=== PATIENT | female | born 1990 | race Caucasian/White ===

== ENCOUNTER 2018-08-02 15:45 | Inpatient (IN) | payer OTHER ==
[2018-08-02 18:26] VITALS: BMI 36.2
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
[2018-08-02] MEDS ORDERED: ALBUTEROL SO4 8 GM HFA INHALER IH PRN (20:31)
[2018-08-02] MEDS ORDERED: MAGNESIUM HYDROX 2400MG/30ML ORAL SUSPENSION 30 ML CUP PO PRN (20:34)
[2018-08-02] MEDS ORDERED: NICOTINE POLACRILEX 2 MG GUM BC PRN (20:34)
[2018-08-02] MEDS ORDERED: MENTHOL/PHENOL 1 EACH UD MM PRN (20:34)
[2018-08-02] MEDS ORDERED: IBUPROFEN 400 MG TABLET (FP) PO PRN (20:34)
[2018-08-02] MEDS ORDERED: guaiFENesin/D-METHORPHAN HB 10 ML UNIT-DOSE CUPS PO PRN (20:34)
[2018-08-02] MEDS ORDERED: MAGNESIUM CITRATE 300 ML BOTTLE PO PRN (20:34)
[2018-08-02] MEDS ORDERED: MAG HYDROX/AL HYDROX/SIMETH 30 ML UNIT-DOSE CUP PO PRN (20:34)
[2018-08-02] MEDS ORDERED: P-EPHED 60MG/TRIPROLIDI 2.5MG TABLET PO PRN (20:34)
[2018-08-02] MEDS ORDERED: LOPERAMIDE HCL 2 MG CAPSULE PO PRN (20:34)
[2018-08-02] MEDS ORDERED: ACETAMINOPHEN 325 MG TABLET (FP) PO PRN (20:34)
[2018-08-02] MEDS ORDERED: cloNIDine HCL 0.1 MG TABLET PO ONE (20:45)
[2018-08-02] MEDS ORDERED: diazePAM 5 MG TABLET PO ONE (20:45)
[2018-08-02] MEDS: THIAMINE HCL 100 MG TABLET (FP) PO SCH (22:14)
[2018-08-02] MEDS: diazePAM 5 MG TABLET PO SCH (22:57)
[2018-08-02 23:51] LABS: URINE APPEARANCE TURBID; URINE BILIRUBIN NEGATIVE (<2.0 mg/dL); URINE COLOR AMBER; URINE GLUCOSE (UA) NEGATIVE (NEGATIVE); URINE KETONE NEGATIVE (NEGATIVE); URINE NITRITE NEGATIVE (NEGATIVE); URINE PROTEIN NEGATIVE (NEGATIVE); URINE UROBILINOGEN NEGATIVE mg/dL (0.2-1.0)
[2018-08-02 23:54] LABS: URINE LEUK ESTERASE 3+ (NEGATIVE)
[2018-08-03] LABS: EPI CELLS MODERATE /HPF (FEW)
[2018-08-03] MEDS: diazePAM 5 MG TABLET PO SCH ×3 (05:27→22:06)
[2018-08-03] MEDS ORDERED: METHADONE HCL 10 MG TABLET PO ONE (08:59)
[2018-08-03] MEDS ORDERED: METHADONE 80 MG, METHADONE 10 MG PO ONE (09:15)
--- NOTE | 2018-08-03 09:37 | CONSULT ---
[facility] Psychiatric Consult - Data Date of interview: 08/03/18 Admission source: [facility] Identifying data: Patient is a 28 year old female, mother of one, unemployed, and currently homeless. This is one of multiple admissions for patient. Pt. admitted to for alcohol, cocaine, opiate, and benzodiazepines. Substance Abuse History: - Smoking Cessation. Smoking history: Current every day smoker. Have you smoked in the past 12 months: Yes. Aproximately how many cigarettes per day: 20. Cigars Per Day: 0. Hx Chewing Tobacco Use: No. Initiated information on smoking cessation: Yes. 'Breaking Loose' booklet given : 08/02/18. - Substance & Tx. History. Hx Alcohol Use: Yes. Hx Substance Use : Yes. Substance Use Type: Alcohol, Heroin, Tranquilizers. [facility] - Substances Abused. Alcohol. Route: Oral. Frequency: Daily. Amount used: liquor- 1 pint, beer- 1 six pack. Age of first use: 16. Date of Last Use: 08/02/18. Alprazolam (Xanax). Route: Oral. Frequency: Daily. Amount used: 8mg. Age of first use: 17. Date of Last Use: 08/02/18 Medical History: Asthma, hypertension, seizures (drug use 2017) Psychiatric History: Patient reports approximately five psychatric hospitalization, most recently last year at [facility] for depression and anxiety. She was at the [facility] last week but was discharge and recommended to attend detox. Most recent outpatient psychiatric services was provided 1.[address] [facility]) clinic. She reports taking prozac and celexa in the past. Pt. was prescribed prozac 40mg while in rehab at [facility] in 2014. Pt. reports one suicide attempt in 2006 via cutting of her wrist. Pt. currently denies suicidal and homicidal ideation. Mental Status Exam - Mental Status Exam Alert and Oriented to: Time, Place, Person Cognitive Function: Good Patient Appearance: Well Groomed Mood: Euthymic Affect: Appropriate Patient Behavior: Appropriate, Cooperative Speech Pattern: Clear, Appropriate Voice Loudness: Normal Thought Process: Intact, Goal Oriented Thought Disorder: Not Present Hallucinations: Denies Suicidal Ideation: Denies Homicidal Ideation: Denies Insight/Judgement: Poor Sleep: Fair Appetite: Fair Muscle strength/Tone: Normal Gait/Station: Normal Psychiatric Findings - Problem List ([place] 1, 2,3) (1) Sedative, hypnotic or anxiolytic dependence with withdrawal, uncomplicated Current Visit: Yes Status: Acute (2) Cocaine dependence Current Visit: Yes Status: Chronic Qualifiers: Substance use status: uncomplicated Qualified Code(s): F14.20 - Cocaine dependence, uncomplicated (3) Opioid dependence Current Visit: Yes Status: Chronic Qualifiers: Substance use status: uncomplicated Qualified Code(s): F11.20 - Opioid dependence, uncomplicated (4) Substance induced mood disorder Current Visit: Yes Status: Acute - Initial Treatment Plan Initial Treatment Plan: Psychoeducation provided. Detoxification in progress. Will order prozac 20mg daily. Benefits and side effects discussed. Verbal consent given.
[2018-08-03] MEDS ORDERED: METHADONE HCL 10 MG TABLET ONE (10:05)
[2018-08-03] MEDS ORDERED: METHADONE HCL 40 MG DISPERSABLE TABLET ONE (10:05)
[2018-08-03] MEDS: cloNIDine HCL 0.1 MG TABLET PO SCH (10:06)
[2018-08-03] MEDS: PRENATAL VITAMINS W/ FOLIC ACID TABLET (FP) PO SCH (10:06)
[2018-08-03] MEDS: NICOTINE 14 MG/24 HOURS TOPICAL PATCH TD SCH (10:07)
[2018-08-03 10:17] LABS: HEMATOCRIT 43.7 % (32.4-45.2); HEMOGLOBIN 13.9 GM/dL (10.7-15.3); MCH 27.9 pg (25.7-33.7); MCHC 31.9 g/dl (32.0-36.0); MEAN CELL VOLUME 87.3 fl (80-96); PLATELET COUNT 242 K/MM3 (134-434); RDW 15.2 % (11.6-15.6); WHITE BLOOD COUNT 6.8 K/mm3 (4.0-10.0)
[2018-08-03] MEDS ORDERED: COLLOIDAL OATMEAL 1 BAR EACH TP PRN (10:21)
--- NOTE | 2018-08-03 10:23 | PN ---
S CIWA - CIWA Score Nausea/Vomitin-Mild Nausea/No Vomiting Muscle Tremors: 4-Moderate,w/Arms Extend Anxiety: 3 Agitation: 3 Paroxysmal Sweats: 1-Minimal Palms Moist Orientation: 1-Uncertain about Date Tacttile Disturbances: 1-Very Mild Itch/Numbness Auditory Disturbances: 1-Very Mild Visual Disturbances: 0-None Headache: 0-None Present CIWA-Ar Total Score: 15 BHS Progress Note (SOAP) Subjective: sweat tremor restlessness anxiety irritable agitative Objective: 08/03/18 10:20 Vital Signs Temperature 97.9 F 08/03/18 09:30 Pulse Rate 65 08/03/18 09:30 Respiratory Rate 18 08/03/18 09:30 Blood Pressure 118/74 08/03/18 09:30 O2 Sat by Pulse Oximetry (%) Laboratory Last Values WBC 6.8 K/mm3 (4.0-10.0) 08/03/18 07:00 RBC 5.00 M/mm3 (3.60-5.2) 08/03/18 07:00 Hgb 13.9 GM/dL (10.7-15.3) 08/03/18 07:00 Hct 43.7 % (32.4-45.2) 08/03/18 07:00 MCV 87.3 fl (80-96) 08/03/18 07:00 MCH 27.9 pg (25.7-33.7) 08/03/18 07:00 MCHC 31.9 g/dl (32.0-36.0) L 08/03/18 07:00 RDW 15.2 % (11.6-15.6) 08/03/18 07:00 Plt Count 242 K/MM3 (134-434) 08/03/18 07:00 MPV 9.0 fl (7.5-11.1) D 08/03/18 07:00 Urine Color Zohreh 08/02/18 23:35 Urine Appearance Turbid 08/02/18 23:35 Urine pH 8.0 (5.0-8.0) D 08/02/18 23:35 Ur Specific [place] 1.016 (1.001-1.035) 08/02/18 23:35 Urine Protein Negative (NEGATIVE) 08/02/18 23:35 Urine Glucose (UA) Negative (NEGATIVE) 08/02/18 23:35 Urine Ketones Negative (NEGATIVE) 08/02/18 23:35 Urine Blood Negative (NEGATIVE) 08/02/18 23:35 Urine Nitrite Negative (NEGATIVE) 08/02/18 23:35 Urine Bilirubin Negative (<2.0 mg/dL) 08/02/18 23:35 Urine Urobilinogen Negative mg/dL (0.2-1.0) 08/02/18 23:35 Ur Leukocyte Esterase 3+ (NEGATIVE) H 08/02/18 23:35 Urine WBC (Auto) 17 /hpf (3-5) 08/02/18 23:35 Urine RBC (Auto) 2 /hpf (0-3) 08/02/18 23:35 Ur Epithelial Cells Moderate /HPF (FEW) 08/02/18 23:35 lab noted Assessment: 08/03/18 10:21 withdrawal sx uti 08/03/18 10:23 methadone 90 mg maintenance reconciled Plan: continue detox bactrim ds bid
[2018-08-03] MEDS: SULFAMETHOXAZOLE/TRIMETHOPRIM 800MG/160MG D.S. TABLET PO SCH ×2 (11:01→22:05)
[2018-08-03 11:33] LABS: CHLORIDE 102 mmol/L (98-107); SODIUM 139 mmol/L (136-145)
[2018-08-03 11:40] LABS: ALBUMIN 2.9 g/dl (3.4-5.0); ALK PHOS 107 U/L (45-117); ANION GAP 8 MMOL/L (8-16); BILIRUBIN,TOTAL 0.4 mg/dL (0.2-1.0); BLOOD UREA NITROGEN 9 mg/dL (7-18); CALCIUM 8.6 mg/dL (8.5-10.1); CO2 29 mmol/L (21-32); CREATININE 0.6 mg/dL (0.55-1.02); GLUCOSE,RANDOM 92 mg/dL (74-106); TOT PROT 6.5 g/dl (6.4-8.2)
[2018-08-03 11:42] LABS: POTASSIUM 4.7 mmol/L (3.5-5.1); SGOT/AST 281 U/L (15-37); SGPT/ALT 558 U/L (12-78)
[2018-08-03] MEDS: diazePAM 5 MG TABLET PO PRN ×2 (11:53→18:22)
[2018-08-03] MEDS: FLUoxetine HCL 20 MG CAPSULE (FP) PO SCH (11:53)
[2018-08-03] MEDS: TRIAMCINOLONE ACET 0.1% OINT 15 GM TUBE TP SCH ×3 (15:08→22:05)
[2018-08-03] MEDS: CLOTRIMAZOLE 1% CREAM 15 GM TUBE TP SCH ×2 (15:09→22:04)
--- NOTE | 2018-08-03 17:21 | EKG ---
Test Reason : Blood Pressure : / mmHG Vent. Rate : 054 BPM Atrial Rate : 054 BPM P-R Int : 120 ms QRS Dur : 082 ms QT Int : 428 ms P-R-T Axes : 035 041 026 degrees QTc Int : 405 ms SINUS BRADYCARDIA OTHERWISE NORMAL ECG NO PREVIOUS ECGS AVAILABLE Confirmed by MD WEI, ANJEL ([id number]) on 08/03/2018 5:21:49 PM Referred By: Confirmed By:ANJEL CARVAJAL MD
[2018-08-03] MEDS: MELATONIN 5 MG TABLETS PO PRN (22:05)
[2018-08-03] MEDS: THIAMINE HCL 100 MG TABLET (FP) PO SCH (22:05)
[2018-08-04] MEDS ORDERED: METHADONE HCL 40 MG DISPERSABLE TABLET ONE (04:09)
[2018-08-04] MEDS ORDERED: METHADONE HCL 10 MG TABLET ONE (04:10)
[2018-08-04] MEDS: METHADONE 80 MG, METHADONE 10 MG PO SCH (05:58)
[2018-08-04] MEDS ORDERED: METHADONE HCL 40 MG DISPERSABLE TABLET PO SCH (06:00)
[2018-08-04 10:18] LABS: SGOT/AST 255 U/L (15-37); SGPT/ALT 517 U/L (12-78)
[2018-08-04] MEDS: PRENATAL VITAMINS W/ FOLIC ACID TABLET (FP) PO SCH (10:27)
[2018-08-04] MEDS: SULFAMETHOXAZOLE/TRIMETHOPRIM 800MG/160MG D.S. TABLET PO SCH ×2 (10:27→22:13)
[2018-08-04] MEDS: TRIAMCINOLONE ACET 0.1% OINT 15 GM TUBE TP SCH ×4 (10:28→22:13)
[2018-08-04] MEDS: cloNIDine HCL 0.1 MG TABLET PO SCH (10:28)
[2018-08-04] MEDS: NICOTINE 14 MG/24 HOURS TOPICAL PATCH TD SCH (10:28)
[2018-08-04] MEDS: diazePAM 5 MG TABLET PO SCH ×2 (10:28→22:13)
[2018-08-04] MEDS: CLOTRIMAZOLE 1% CREAM 15 GM TUBE TP SCH ×2 (10:28→22:12)
[2018-08-04] MEDS: FLUoxetine HCL 20 MG CAPSULE (FP) PO SCH (10:28)
--- NOTE | 2018-08-04 11:17 | PN ---
S CIWA - CIWA Score Nausea/Vomitin-Mild Nausea/No Vomiting Muscle Tremors: 4-Moderate,w/Arms Extend Anxiety: 3 Agitation: 3 Paroxysmal Sweats: 1-Minimal Palms Moist Orientation: 0-Oriented Tacttile Disturbances: 0-None Auditory Disturbances: 0-None Visual Disturbances: 0-None Headache: 0-None Present CIWA-Ar Total Score: 12 BHS Progress Note (SOAP) Subjective: sweat tremor anxiety trouble sleep at night low energy irritable Objective: 08/04/18 11:18 Vital Signs Temperature 97.9 F 08/04/18 09:22 Pulse Rate 86 08/04/18 09:22 Respiratory Rate 18 08/04/18 09:22 Blood Pressure 105/63 08/04/18 09:22 O2 Sat by Pulse Oximetry (%) Laboratory Last Values WBC 6.8 K/mm3 (4.0-10.0) 08/03/18 07:00 RBC 5.00 M/mm3 (3.60-5.2) 08/03/18 07:00 Hgb 13.9 GM/dL (10.7-15.3) 08/03/18 07:00 Hct 43.7 % (32.4-45.2) 08/03/18 07:00 MCV 87.3 fl (80-96) 08/03/18 07:00 MCH 27.9 pg (25.7-33.7) 08/03/18 07:00 MCHC 31.9 g/dl (32.0-36.0) L 08/03/18 07:00 RDW 15.2 % (11.6-15.6) 08/03/18 07:00 Plt Count 242 K/MM3 (134-434) 08/03/18 07:00 MPV 9.0 fl (7.5-11.1) D 08/03/18 07:00 Sodium 139 mmol/L (136-145) 08/03/18 07:00 Potassium 4.7 mmol/L (3.5-5.1) 08/03/18 07:00 Chloride 102 mmol/L (98-107) 08/03/18 07:00 Carbon Dioxide 29 mmol/L (21-32) 08/03/18 07:00 Anion Gap 8 MMOL/L (8-16) 08/03/18 07:00 BUN 9 mg/dL (7-18) 08/03/18 07:00 Creatinine 0.6 mg/dL (0.55-1.02) 08/03/18 07:00 Creat Clearance w eGFR > 60 (>60) 08/03/18 07:00 Random Glucose 92 mg/dL (74-106) 08/03/18 07:00 Calcium 8.6 mg/dL (8.5-10.1) 08/03/18 07:00 Total Bilirubin 0.4 mg/dL (0.2-1.0) 08/03/18 07:00 AST 255 U/L (15-37) H 08/04/18 07:00 ALT 517 U/L (12-78) H 08/04/18 07:00 Alkaline Phosphatase 107 U/L (45-117) 08/03/18 07:00 Total Protein 6.5 g/dl (6.4-8.2) 08/03/18 07:00 Albumin 2.9 g/dl (3.4-5.0) L 08/03/18 07:00 Urine Color Zohreh 08/02/18 23:35 Urine Appearance Turbid 08/02/18 23:35 Urine pH 8.0 (5.0-8.0) D 08/02/18 23:35 Ur Specific [place] 1.016 (1.001-1.035) 08/02/18 23:35 Urine Protein Negative (NEGATIVE) 08/02/18 23:35 Urine Glucose (UA) Negative (NEGATIVE) 08/02/18 23:35 Urine Ketones Negative (NEGATIVE) 08/02/18 23:35 Urine Blood Negative (NEGATIVE) 08/02/18 23:35 Urine Nitrite Negative (NEGATIVE) 08/02/18 23:35 Urine Bilirubin Negative (<2.0 mg/dL) 08/02/18 23:35 Urine Urobilinogen Negative mg/dL (0.2-1.0) 08/02/18 23:35 Ur Leukocyte Esterase 3+ (NEGATIVE) H 08/02/18 23:35 Urine WBC (Auto) 17 /hpf (3-5) 08/02/18 23:35 Urine RBC (Auto) 2 /hpf (0-3) 08/02/18 23:35 Ur Epithelial Cells Moderate /HPF (FEW) 08/02/18 23:35 RPR Titer Nonreactive (NONREACTIVE) 08/03/18 07:00 HIV 1&2 Antibody Screen Negative 08/03/18 07:00 HIV P24 Antigen Negative 08/03/18 07:00 08/04/18 11:21 lab noted repeat ast alt for progress continue uti treatment Assessment: 08/04/18 11:22 withdrawal sx uti eczema liver enzyme elevation Plan: continue detox continue uti treatment began eczema treatment discuss alcohol misuse related liver enzyme elevation
[2018-08-04] MEDS: diazePAM 5 MG TABLET PO PRN (14:23)
[2018-08-04] MEDS: MELATONIN 5 MG TABLETS PO PRN (22:13)
[2018-08-04] MEDS: THIAMINE HCL 100 MG TABLET (FP) PO SCH (22:13)
[2018-08-05] MEDS ORDERED: METHADONE HCL 40 MG DISPERSABLE TABLET ONE (04:29)
[2018-08-05] MEDS ORDERED: METHADONE HCL 10 MG TABLET ONE (04:29)
[2018-08-05] MEDS: METHADONE 80 MG, METHADONE 10 MG PO SCH (05:47)
[2018-08-05] MEDS: TRIAMCINOLONE ACET 0.1% OINT 15 GM TUBE TP SCH ×4 (10:30→22:34)
[2018-08-05] MEDS: PRENATAL VITAMINS W/ FOLIC ACID TABLET (FP) PO SCH (10:50)
[2018-08-05] MEDS: diazePAM 5 MG TABLET PO SCH ×2 (10:50→22:35)
[2018-08-05] MEDS: FLUoxetine HCL 20 MG CAPSULE (FP) PO SCH (10:51)
[2018-08-05] MEDS: SULFAMETHOXAZOLE/TRIMETHOPRIM 800MG/160MG D.S. TABLET PO SCH ×2 (10:51→22:35)
[2018-08-05] MEDS: cloNIDine HCL 0.1 MG TABLET PO SCH (10:51)
[2018-08-05] MEDS: NICOTINE 14 MG/24 HOURS TOPICAL PATCH TD SCH (10:51)
[2018-08-05] MEDS: CLOTRIMAZOLE 1% CREAM 15 GM TUBE TP SCH ×2 (10:51→22:34)
[2018-08-05 11:15] LABS: SGOT/AST 210 U/L (15-37)
[2018-08-05 11:34] LABS: SGPT/ALT 470 U/L (13-61)
[2018-08-05] MEDS ORDERED: cloNIDine HCL 0.1 MG TABLET PO PRN (11:50)
--- NOTE | 2018-08-05 11:58 | PN ---
S Progress Note (SOAP) Subjective: feeling better less sweat no tremor discontinue clonidine due to bp below 100 systolic clonidine 0.1 mg po bid prn given when systolic above 130 Objective: 08/05/18 11:57 Vital Signs Temperature 98.1 F 08/05/18 09:10 Pulse Rate 67 08/05/18 09:10 Respiratory Rate 18 08/05/18 09:10 Blood Pressure 110/66 08/05/18 09:10 O2 Sat by Pulse Oximetry (%) Laboratory Last Values WBC 6.8 K/mm3 (4.0-10.0) 08/03/18 07:00 RBC 5.00 M/mm3 (3.60-5.2) 08/03/18 07:00 Hgb 13.9 GM/dL (10.7-15.3) 08/03/18 07:00 Hct 43.7 % (32.4-45.2) 08/03/18 07:00 MCV 87.3 fl (80-96) 08/03/18 07:00 MCH 27.9 pg (25.7-33.7) 08/03/18 07:00 MCHC 31.9 g/dl (32.0-36.0) L 08/03/18 07:00 RDW 15.2 % (11.6-15.6) 08/03/18 07:00 Plt Count 242 K/MM3 (134-434) 08/03/18 07:00 MPV 9.0 fl (7.5-11.1) D 08/03/18 07:00 Sodium 139 mmol/L (136-145) 08/03/18 07:00 Potassium 4.7 mmol/L (3.5-5.1) 08/03/18 07:00 Chloride 102 mmol/L (98-107) 08/03/18 07:00 Carbon Dioxide 29 mmol/L (21-32) 08/03/18 07:00 Anion Gap 8 MMOL/L (8-16) 08/03/18 07:00 BUN 9 mg/dL (7-18) 08/03/18 07:00 Creatinine 0.6 mg/dL (0.55-1.02) 08/03/18 07:00 Creat Clearance w eGFR > 60 (>60) 08/03/18 07:00 Random Glucose 92 mg/dL (74-106) 08/03/18 07:00 Calcium 8.6 mg/dL (8.5-10.1) 08/03/18 07:00 Total Bilirubin 0.4 mg/dL (0.2-1.0) 08/03/18 07:00 AST 210 U/L (15-37) H 08/05/18 07:00 ALT 470 U/L (13-61) H 08/05/18 07:00 Alkaline Phosphatase 107 U/L (45-117) 08/03/18 07:00 Total Protein 6.5 g/dl (6.4-8.2) 08/03/18 07:00 Albumin 2.9 g/dl (3.4-5.0) L 08/03/18 07:00 Urine Color Zohreh 08/02/18 23:35 Urine Appearance Turbid 08/02/18 23:35 Urine pH 8.0 (5.0-8.0) D 08/02/18 23:35 Ur Specific [place] 1.016 (1.001-1.035) 08/02/18 23:35 Urine Protein Negative (NEGATIVE) 08/02/18 23:35 Urine Glucose (UA) Negative (NEGATIVE) 08/02/18 23:35 Urine Ketones Negative (NEGATIVE) 08/02/18 23:35 Urine Blood Negative (NEGATIVE) 08/02/18 23:35 Urine Nitrite Negative (NEGATIVE) 08/02/18 23:35 Urine Bilirubin Negative (<2.0 mg/dL) 08/02/18 23:35 Urine Urobilinogen Negative mg/dL (0.2-1.0) 08/02/18 23:35 Ur Leukocyte Esterase 3+ (NEGATIVE) H 08/02/18 23:35 Urine WBC (Auto) 17 /hpf (3-5) 08/02/18 23:35 Urine RBC (Auto) 2 /hpf (0-3) 08/02/18 23:35 Ur Epithelial Cells Moderate /HPF (FEW) 08/02/18 23:35 RPR Titer Nonreactive (NONREACTIVE) 08/03/18 07:00 HIV 1&2 Antibody Screen Negative 08/03/18 07:00 HIV P24 Antigen Negative 08/03/18 07:00 lab noted Assessment: 08/05/18 11:57 mild withdrawal sx Plan: medically supervised detox
[2018-08-05] MEDS: diazePAM 5 MG TABLET PO PRN (14:46)
[2018-08-05] MEDS: THIAMINE HCL 100 MG TABLET (FP) PO SCH (22:35)
[2018-08-05] MEDS: MELATONIN 5 MG TABLETS PO PRN (22:35)
[2018-08-06] MEDS ORDERED: METHADONE HCL 40 MG DISPERSABLE TABLET ONE (05:01)
[2018-08-06] MEDS ORDERED: METHADONE HCL 10 MG TABLET ONE (05:02)
[2018-08-06] MEDS: METHADONE 80 MG, METHADONE 10 MG PO SCH (05:33)
--- NOTE | 2018-08-06 09:06 | DS ---
[facility] Detox Discharge Summary Admission Date: 08/02/18 Discharge Date: 08/06/18 - History Present History: Cocaine Dependence, Opioid Dependence, Sedative Dependence, MMTP - Physical Exam Results Vital Signs: Vital Signs Temperature 98.2 F 08/06/18 06:26 Pulse Rate 67 08/06/18 06:26 Respiratory Rate 18 08/06/18 06:26 Blood Pressure 123/66 08/06/18 06:26 O2 Sat by Pulse Oximetry (%) - Treatment Hospital Course: Detox Protocol Followed, Detoxed Safely, Responded well, Discharged Condition Good, Rehab Referral Accepted - Medication Discharge Medications: Ambulatory Orders Fluoxetine HCl [Prozac -] 40 mg PO DAILY 04/09/15 cloNIDine HCL [Catapres -] 0.3 mg PO DAILY 04/09/15 Fluoxetine HCl [Prozac -] 40 mg PO DAILY #30 capsule 04/10/15 Methadone [Dolophine -] 90 mg PO DAILY 08/03/18 Albuterol Sulfate Inhaler - [Ventolin HFA Inhaler -] 2 inh PO Q4H PRN #1 inhaler 08/05/18 Gabapentin [Neurontin -] 600 mg PO TID #90 capsule 08/05/18 Sulfamethoxazole/Trimethoprim [Bactrim DS -] 1 each PO BID #10 tablet 08/05/18 - Diagnosis (1) Eczema Current Visit: Yes Status: Chronic Qualifiers: Eczema type: unspecified Qualified Code(s): L30.9 - Dermatitis, unspecified (2) Elevated blood pressure reading in office with diagnosis of hypertension Current Visit: Yes Status: Chronic (3) Liver enzyme elevation Current Visit: Yes Status: Acute (4) Sedative, hypnotic or anxiolytic dependence with withdrawal, uncomplicated Current Visit: Yes Status: Chronic (5) Substance induced mood disorder Current Visit: Yes Status: Chronic (6) UTI (urinary tract infection) Current Visit: Yes Status: Chronic (7) Asthma Current Visit: Yes Status: Chronic Qualifiers: Asthma severity: mild Asthma persistence: intermittent Asthma complication type: unspecified Qualified Code(s): J45.20 - Mild intermittent asthma, uncomplicated (8) Cocaine dependence Current Visit: Yes Status: Chronic Qualifiers: Substance use status: uncomplicated Qualified Code(s): F14.20 - Cocaine dependence, uncomplicated (9) Essential (primary) hypertension Current Visit: Yes Status: Chronic (10) IVDU (intravenous drug user) Current Visit: Yes Status: Chronic (11) Methadone maintenance therapy patient Current Visit: Yes Status: Chronic (12) Opioid dependence Current Visit: Yes Status: Chronic Qualifiers: Substance use status: uncomplicated Qualified Code(s): F11.20 - Opioid dependence, uncomplicated (13) Seizure Current Visit: Yes Status: Chronic (14) Depression Current Visit: Yes Status: Suspected Qualifiers: Depression Type: unspecified Qualified Code(s): F32.9 - Major depressive disorder, single episode, unspecified (15) Bipolar I disorder, current episode depressed Current Visit: No Status: Acute (16) Active asthma Current Visit: No Status: Chronic (17) Alcohol dependence Current Visit: No Status: Chronic (18) Nicotine dependence Current Visit: Yes Status: Chronic Qualifiers: Nicotine product type: cigarettes Substance use status: uncomplicated Qualified Code(s): F17.210 - Nicotine dependence, cigarettes, uncomplicated (19) Sedative dependence Current Visit: Yes Status: Chronic - AMA Did Patient Leave Against Medical Advice: No
[2018-08-06] MEDS ORDERED: diazePAM 5 MG TABLET PO SCH (10:00)
[2018-08-06 10:03] VITALS: TEMP 97.9
[2018-08-06] MEDS: NICOTINE 14 MG/24 HOURS TOPICAL PATCH TD SCH (10:38)
[2018-08-06] MEDS: FLUoxetine HCL 20 MG CAPSULE (FP) PO SCH (10:38)
[2018-08-06] MEDS: SULFAMETHOXAZOLE/TRIMETHOPRIM 800MG/160MG D.S. TABLET PO SCH (10:38)
[2018-08-06] MEDS: PRENATAL VITAMINS W/ FOLIC ACID TABLET (FP) PO SCH (10:38)
[2018-08-06] MEDS: TRIAMCINOLONE ACET 0.1% OINT 15 GM TUBE TP SCH ×2 (10:40→14:03)
[2018-08-06] MEDS: CLOTRIMAZOLE 1% CREAM 15 GM TUBE TP SCH (10:40)
[2018-08-06 15:00] VITALS: BP 118/52; PULSE 67
== END 2018-08-06 14:54 | disposition other institution (70) | DRG 773 ==
LOC: YASAS 15:45 → Y6N 20:01
PROC: HZ2ZZZZ Detoxification Services for Substance Abuse Treatment (ICD-10-PCS; principal; 2018-08-02)
DX: F11.20 Opioid dependence, uncomplicated (principal); F10.20 Alcohol dependence, uncomplicated; F13.20 Sedative, hypnotic or anxiolytic dependence, uncomplicated; F14.20 Cocaine dependence, uncomplicated; F17.210 Nicotine dependence, cigarettes, uncomplicated; F19.24 Other psychoactive substance dependence with psychoactive substance-induced mood disorder; F31.30 Bipolar disorder, current episode depressed, mild or moderate severity, unspecified; F32.9 Major depressive disorder, single episode, unspecified; R94.5 Abnormal results of liver function studies; B18.2 Chronic viral hepatitis C; I10 Essential (primary) hypertension; J45.20 Mild intermittent asthma, uncomplicated; L30.9 Dermatitis, unspecified; N39.0 Urinary tract infection, site not specified; Z86.69 Personal history of other diseases of the nervous system and sense organs; Z91.5 Personal history of self-harm; Z59.0 Homelessness
CPT/HCPCS: 36415; 80053; 81003; 81015; 84450; 84460; 85027; 86593; 87389; 93005; 93010; J0735

== ENCOUNTER 2018-08-06 15:04 | Inpatient (IN) | payer OTHER ==
[2018-08-06 15:25] VITALS: BMI 37.6
[2018-08-06] MEDS ORDERED: P-EPHED 60MG/TRIPROLIDI 2.5MG TABLET PO PRN (15:57)
[2018-08-06] MEDS ORDERED: guaiFENesin/D-METHORPHAN HB 10 ML UNIT-DOSE CUPS PO PRN (15:57)
[2018-08-06] MEDS ORDERED: MAG HYDROX/AL HYDROX/SIMETH 30 ML UNIT-DOSE CUP PO PRN (15:57)
[2018-08-06] MEDS ORDERED: MAGNESIUM CITRATE 300 ML BOTTLE PO PRN (15:57)
[2018-08-06] MEDS ORDERED: hydrOXYzine PAMOATE 50 MG CAPSULE (FP) PO PRN (15:57)
[2018-08-06] MEDS ORDERED: IBUPROFEN 400 MG TABLET (FP) PO PRN (15:57)
[2018-08-06] MEDS ORDERED: LOPERAMIDE HCL 2 MG CAPSULE PO PRN (15:57)
[2018-08-06] MEDS ORDERED: NICOTINE POLACRILEX 4 MG GUM BUC PRN (15:57)
[2018-08-06] MEDS ORDERED: MENTHOL/PHENOL 1 EACH UD MM PRN (15:57)
[2018-08-06] MEDS ORDERED: ACETAMINOPHEN 325 MG TABLET (FP) PO PRN (15:57)
[2018-08-06] MEDS ORDERED: MAGNESIUM HYDROX 2400MG/30ML ORAL SUSPENSION 30 ML CUP PO PRN (15:57)
[2018-08-06] MEDS ORDERED: ALBUTEROL SO4 8 GM HFA INHALER IH PRN (15:57)
[2018-08-06] MEDS ORDERED: COLLOIDAL OATMEAL 1 BAR EACH TP PRN (16:01)
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
[2018-08-06] MEDS: TRIAMCINOLONE ACET 0.1% 60 ML LOTION TP SCH ×2 (19:00→22:18)
[2018-08-06] MEDS ORDERED: THIAMINE HCL 100 MG TABLET (FP) PO SCH (22:00)
[2018-08-06] MEDS ORDERED: MELATONIN 5 MG TABLETS PO PRN (22:00)
[2018-08-06] MEDS: GABAPENTIN 300 MG CAPSULE (FP) PO SCH (22:14)
[2018-08-06] MEDS: CLOTRIMAZOLE 1% CREAM 15 GM TUBE TP SCH (22:14)
[2018-08-06] MEDS: SULFAMETHOXAZOLE/TRIMETHOPRIM 800MG/160MG D.S. TABLET PO SCH (22:14)
[2018-08-07] MEDS ORDERED: METHADONE 80 MG, METHADONE 10 MG PO SCH (06:00)
[2018-08-07] MEDS ORDERED: METHADONE HCL 10 MG TABLET ONE (06:16)
[2018-08-07] MEDS ORDERED: METHADONE HCL 40 MG DISPERSABLE TABLET ONE (06:16)
[2018-08-07] MEDS: GABAPENTIN 300 MG CAPSULE (FP) PO SCH ×2 (06:43→13:56)
[2018-08-07 07:08] VITALS: TEMP 98.1
[2018-08-07] MEDS ORDERED: PT OWN MED DRAWER 7, Y5N ONE (09:00)
[2018-08-07] MEDS: SULFAMETHOXAZOLE/TRIMETHOPRIM 800MG/160MG D.S. TABLET PO SCH (09:25)
[2018-08-07] MEDS: CLOTRIMAZOLE 1% CREAM 15 GM TUBE TP SCH (09:26)
[2018-08-07] MEDS: TRIAMCINOLONE ACET 0.1% 60 ML LOTION TP SCH ×2 (09:26→13:58)
[2018-08-07] MEDS ORDERED: NICOTINE 21 MG/24 HOURS TOPICAL PATCH TD SCH (10:00)
[2018-08-07] MEDS ORDERED: cloNIDine HCL 0.1 MG TABLET PO SCH (10:00)
[2018-08-07] MEDS ORDERED: FLUoxetine HCL 20 MG CAPSULE (FP) PO SCH (10:00)
[2018-08-07] MEDS ORDERED: PRENATAL VITAMINS W/ FOLIC ACID TABLET (FP) PO SCH (10:00)
[2018-08-07] MEDS ORDERED: METHADONE HCL 40 MG DISPERSABLE TABLET PO SCH (10:00)
[2018-08-07 10:16] VITALS: BP 114/76; PULSE 73
--- NOTE | 2018-08-07 17:56 | PN ---
[facility] Progress Note Note: Psychiatry Attending's note : Informed of patient's decision to leave the program. Nurse called to inform this tag writer (around 14:10). Ms has just been transferred to [address] From [address] [place] [id number]. Patient was instructed to wait for psychiatrist. Declined to wait for an evaluation. Left unit. NOT seen by tag writer.
== END 2018-08-07 14:35 | disposition left against medical advice (07) | DRG 770 ==
LOC: YASAS 15:04 → Y3E 15:05
PROVIDERS: ADMIT Psychiatry & Neurology Psychiatry; ATTEND Psychiatry & Neurology Psychiatry
PROC: HZ42ZZZ Group Counseling for Substance Abuse Treatment, Cognitive-Behavioral (ICD-10-PCS; principal; 2018-08-06)
DX: F11.20 Opioid dependence, uncomplicated (principal); F10.20 Alcohol dependence, uncomplicated; F13.20 Sedative, hypnotic or anxiolytic dependence, uncomplicated; F17.210 Nicotine dependence, cigarettes, uncomplicated; F19.24 Other psychoactive substance dependence with psychoactive substance-induced mood disorder; F31.30 Bipolar disorder, current episode depressed, mild or moderate severity, unspecified; R94.5 Abnormal results of liver function studies; B18.2 Chronic viral hepatitis C; I10 Essential (primary) hypertension; J45.20 Mild intermittent asthma, uncomplicated; L30.9 Dermatitis, unspecified; N39.0 Urinary tract infection, site not specified; Z86.19 Personal history of other infectious and parasitic diseases; Z91.5 Personal history of self-harm; Z59.0 Homelessness
CPT/HCPCS: J0735

== ENCOUNTER 2019-03-29 05:20 | Inpatient (IN) | payer OTHER ==
[2019-03-29 08:47] VITALS: BMI 34.5
--- NOTE | 2019-03-29 09:19 | HP ---
CIWA Score Nausea/Vomitin-No Nausea/No Vomiting Muscle Tremors: 4-Moderate,w/Arms Extend Anxiety: 3 Agitation: 0-Normal Activity Paroxysmal Sweats: 2 Orientation: 0-Oriented Tacttile Disturbances: 2-Mild Itch/Numbness/Burn Auditory Disturbances: 2-Mild Harshness/Frighten Visual Disturbances: 2-Mild Sensitivity Headache: 2-Mild CIWA-Ar Total Score: 17 - Admission Criteria OASAS Guidelines: Admission for Medically Managed Detox: Requires at least one of the followin. CIWA greater than 12 2. Seizures within the past 24 hours 3. Delirium tremens within the past 24 hours 4. Hallucinations within the past 24 hours 5. Acute intervention needed for co occurring medical disorder 6. Acute intervention needed for co occurring psychiatric disorder 7. Severe withdrawal that cannot be handled at a lower level of care (continued vomiting, continued diarrhea, abnormal vital signs) requiring intravenous medication and/or fluids 8. Admission ROS [facility] - [facility] Allergies/Adverse Reactions: Allergies Allergy/AdvReac Type Severity Reaction Status Date / Time lactose Allergy Verified 03/29/19 08:33 No Known Drug Allergies Allergy Verified 03/29/19 08:33 History of Present Illness: pt here requesting admission for alcohol and benzo use , reports etoh since age 14 , current daily use 1-2 pints/day and 1-2 6-pk / day , starts drinking around 1 pm , reports sweating and nausea if not drinking , had w /d seizure Nov 2018 [facility] , on [facility] which she eventually stopped taking and did not followup with neurology since Dec 2018 . Latest use yesterday , current symptoms as above . Benzo : klonopin 2-6 mg /day , xanax 2-4 mg /day , latest use yesterday 1 klonopin , first age of use 20 cocaine - 40 $ /day ivdu , past abscess most recently 2 mo ago did not seek medical attention " I took OTC antibiotics " since age 20 cannabis - since age 14 , daily use 2 x 10 $/day tobacco : 1/2 ppd - 1 ppd since age 14 opiates : heroin 1 -2 bundles /day on [facility] current dose 110 mg latest dosed yesterday fentanyl - varied amounts daily . [place] from exchange, denies sharing , + re- using . denies amphetamine use denies other illicits PMHX: seizure d/o ( no meds), asthma, bipolar, anxiety, PTSD and depression. Denies suicidal / homicidal ideation. Longest period of sobriety two years while in [facility] x 9 mo on M[facility] . PSHX : cervical conization pre-term labor Nov 2016 25 weeks , LMP 03/23/19 , has 6 yr old child ( son ) in [place] denies current ACS involvement current legal : petty cahvez has court pending Exam Limitations: No Limitations - Review of Systems Constitutional: See HPI EENT: reports: See HPI Respiratory: reports: No Symptoms reported Cardiac: reports: No Symptoms Reported GI: reports: No Symptoms Reported : reports: No Symptoms Reported Musculoskeletal: reports: Back Pain (chronic LBP) Integumentary: reports: See HPI (IVDU in UE) Neuro: reports: See HPI Endocrine: reports: No Symptoms Reported Psychiatric: reports: Orientated x3, Anxious Patient History - Patient Medical History Hx Anemia: No Hx Asthma: Yes Hx Chronic Obstructive Pulmonary Disease (COPD): No Hx Cancer: No Hx Cardiac Disorders: No Hx Congestive Heart Failure: No Hx Hypertension: Yes Hx Hypercholesterolemia: No Hx Pacemaker: No HX Cerebrovascular Accident: No Hx Seizures: Yes (R/O alcohol April 2018) Hx Dementia: No Hx Diabetes: No Hx Gastrointestinal Disorders: No Hx Liver Disease: No Hx Genitourinary Disorders: No Hx Sexually Transmitted Disorders: No Hx Renal Disease (ESRD): No Hx Thyroid Disease: No Hx Human Immunodeficiency Virus (HIV): No (last tested April 2018, neg ) Hx Hepatitis C: Yes Hx Depression: Yes Hx Suicide Attempt: Yes (by cutting wrist in 2004 and 2014) Hx Schizophrenia: No - Patient Surgical History Past Surgical History: Yes Hx Neurologic Surgery: No Hx Cataract Extraction: No Hx Cardiac Surgery: No Hx Lung Surgery: No Hx Breast Surgery: No Hx Breast Biopsy: No Hx Abdominal Surgery: No Hx Appendectomy: No Hx Cholecystectomy: No Hx Genitourinary Surgery: No Hx Section: No Hx Orthopedic Surgery: No Other Surgical History: conization of cervix on 03/29/15 for abnormal pap smear, follow up with own - PPD History Date: 08/04/18 Results: 0mm - Reproductive History Last Menstrual Period: 06/28/18 - Smoking Cessation Smoking history: Current every day smoker Have you smoked in the past 12 months: Yes Aproximately how many cigarettes per day: 20 Cigars Per Day: 0 Hx Chewing Tobacco Use: No Initiated information on smoking cessation: No - Substances abused Heroin Substance route: Injection Frequency: Daily Amount used: 10 t0 20 bags Age of first use: 22 Date of last use: 03/29/19 Cocaine Substance route: Injection Frequency: Daily Amount used: 40 dollars Age of first use: 18 Date of last use: 03/28/19 Alcohol Substance route: Oral Frequency: Daily Amount used: 6 packs to 1 pint Age of first use: 14 Date of last use: 03/29/19 Alprazolam (Xanax) Substance route: Oral Frequency: Daily Amount used: 2 to 4 mg Age of first use: 18 Date of last use: 03/28/19 Benzodiazepine (Klonopin) Substance route: Oral Frequency: Daily Amount used: 2 to 8 mg Age of first use: 18 Date of last use: 03/28/19 Family Disease History - Family Disease History Family Disease History: Heart Disease: Father (48 RI , LISS - etoh, cocaine ), CA : Mother (42 alcohol, cocaine , opi , CA - lymphoma ), Other: Father, Mother, Brother (1 A & W , 2 : heroin OD , etoh complications), Sister (1 A & W : LISS " everything " ), Son (A & W ) Admission Physical Exam [facility] - Vital Signs Vital Signs: Vital Signs - 24 hr 03/29/19 03/29/19 08:32 09:01 Temperature 97.0 F L 97.0 F L Pulse Rate 71 71 Respiratory 16 16 Rate Blood Pressure 123/78 123/78 - Physical General Appearance: Yes: No Apparent Distress HEENTM: Yes: EOMI, Hearing grossly Normal, Normocephalic, Normal Voice Respiratory: Yes: Chest Non-Tender, Lungs Clear, Normal Breath Sounds Neck: Yes: No masses,lesions,Nodules, Trachea in good position Cardiology: Yes: Regular Rhythm, Regular Rate, S1, S2 Abdominal: Yes: Normal Bowel Sounds, Non Tender, Soft Back: Yes: Normal Inspection Musculoskeletal: Yes: Gait Steady Extremities: Yes: Non-Tender, Tremors Neurological: Yes: Fully Oriented, Alert, Motor Strength 5/5, Normal Mood/Affect Integumentary: Yes: Track Mena - Diagnostic (1) Alcohol dependence Current Visit: Yes Status: Acute Qualifiers: Substance use status: in withdrawal (2) Cocaine dependence Current Visit: Yes Status: Chronic Qualifiers: Substance use status: uncomplicated Qualified Code(s): F14.20 - Cocaine dependence, uncomplicated (3) IVDU (intravenous drug user) Current Visit: Yes Status: Chronic (4) Methadone maintenance therapy patient Current Visit: Yes Status: Chronic Comment: MMTP: Sesar Barrios on methadone 90 mg, dose pending verification (5) Nicotine dependence Current Visit: Yes Status: Chronic Qualifiers: Nicotine product type: cigarettes (6) Opioid dependence Current Visit: Yes Status: Chronic Qualifiers: (7) Sedative, hypnotic or anxiolytic dependence with withdrawal, uncomplicated Current Visit: Yes Status: Acute (8) Cannabis dependence Current Visit: Yes Status: Acute Breathalyzer - Breathalyzer Breathalyzer: 0 Urine Drug Screen - Test Device Lot number: [id number] Expiration date: 10/22/20 - Control Is test valid?: Yes - Results Drug screen NEGATIVE: No Urine drug screen results: THC-Marijuana, MILTON-Cocaine, MET-Methamphetamine, FEN- Fentanyl, MOP-Opiates, MTD-Methadone, BZO-Benzodiazepines Inpatient Rehab Admission - Rehab Decision to Admit Inpatient rehab admission?: No
[2019-03-29] MEDS ORDERED: NICOTINE POLACRILEX 2 MG GUM BUC PRN (09:29)
[2019-03-29] MEDS ORDERED: chlordiazePOXIDE HCL 10 MG CAPSULE PO PRN (09:29)
[2019-03-29] MEDS ORDERED: BISMUTH SUBSALICYLATE 262 MG/15 ML BTL PO PRN (09:29)
[2019-03-29] MEDS ORDERED: IBUPROFEN 400 MG TABLET (FP) PO PRN (09:29)
[2019-03-29] MEDS ORDERED: MAGNESIUM CITRATE 300 ML BOTTLE PO PRN (09:29)
[2019-03-29] MEDS ORDERED: MELATONIN 5 MG TABLETS PO PRN (09:29)
[2019-03-29] MEDS ORDERED: MENTHOL/PHENOL 1 EACH UD MM PRN (09:29)
[2019-03-29] MEDS ORDERED: ACETAMINOPHEN 325 MG TABLET (FP) PO PRN ×2 (09:29)
[2019-03-29] MEDS ORDERED: MAGNESIUM HYDROX 2400MG/30ML ORAL SUSPENSION 30 ML CUP PO PRN (09:29)
[2019-03-29] MEDS ORDERED: MAG HYDROX/AL HYDROX/SIMETH 30 ML UNIT-DOSE CUP PO PRN (09:29)
[2019-03-29] MEDS ORDERED: ALBUTEROL SO4 0.083% IH SOL 2.5 MG/3 ML VIAL.NEB. NEB PRN (09:32)
[2019-03-29] MEDS ORDERED: METHADONE HCL 40 MG DISPERSABLE TABLET PO SCH (09:45)
[2019-03-29] MEDS ORDERED: NICOTINE 7 MG/24 HOURS TOPICAL PATCH TD SCH (10:00)
[2019-03-29] MEDS ORDERED: METHADONE 80 MG, METHADONE 30 MG PO SCH (10:30)
[2019-03-29] MEDS ORDERED: METHADONE HCL 10 MG TABLET ONE ×2 (10:36→10:38)
[2019-03-29] MEDS ORDERED: METHADONE HCL 40 MG DISPERSABLE TABLET ONE ×2 (10:37→10:38)
[2019-03-29] MEDS: PRENATAL VITAMINS W/ FOLIC ACID TABLET (FP) PO SCH (10:39)
[2019-03-29] MEDS: METHADONE 80 MG, METHADONE 30 MG PO SCH (10:39)
[2019-03-29] MEDS ORDERED: NICOTINE 21 MG/24 HOURS TOPICAL PATCH TD ONE (10:56)
[2019-03-29] MEDS: chlordiazePOXIDE HCL 25 MG CAPSULE PO SCH ×2 (12:55→22:37)
[2019-03-29 19:33] LABS: HEMATOCRIT 36.5 % (32.4-45.2); HEMOGLOBIN 12.4 GM/dL (10.7-15.3); MCHC 33.8 g/dl (32.0-36.0); MEAN CELL VOLUME 85.8 fl (80-96); MEAN PLT VOLUME 8.5 fl (7.5-11.1); PLATELET COUNT 272 K/MM3 (134-434); RBC 4.26 M/mm3 (3.60-5.2); RDW 14.6 % (11.6-15.6); WHITE BLOOD COUNT 6.4 K/mm3 (4.0-10.0)
[2019-03-29 19:45] LABS: ALBUMIN 3.6 g/dl (3.4-5.0); ALK PHOS 65 U/L (45-117); ANION GAP 7 MMOL/L (8-16); BILIRUBIN,TOTAL 0.6 mg/dL (0.2-1); BLOOD UREA NITROGEN 10 mg/dL (7-18); CALCIUM 9.4 mg/dL (8.5-10.1); CHLORIDE 104 mmol/L (98-107); CO2 28 mmol/L (21-32); CREATININE 0.6 mg/dL (0.55-1.3); GLUCOSE,RANDOM 106 mg/dL (74-106); POTASSIUM 3.6 mmol/L (3.5-5.1); SGOT/AST 15 U/L (15-37); SGPT/ALT 22 U/L (13-61); SODIUM 138 mmol/L (136-145); TOT PROT 7.3 g/dl (6.4-8.2)
[2019-03-29] MEDS: THIAMINE HCL 100 MG TABLET (FP) PO SCH (22:37)
[2019-03-30] MEDS ORDERED: METHADONE HCL 40 MG DISPERSABLE TABLET ONE (04:02)
[2019-03-30] MEDS ORDERED: METHADONE HCL 10 MG TABLET ONE (04:02)
[2019-03-30] MEDS: chlordiazePOXIDE HCL 25 MG CAPSULE PO SCH (06:03)
[2019-03-30] MEDS: METHADONE 80 MG, METHADONE 30 MG PO SCH (06:03)
[2019-03-30] MEDS: METHOCARBAMOL 500 MG TABLET PO PRN ×2 (08:49→17:28)
[2019-03-30] MEDS: NICOTINE 21 MG/24 HOURS TOPICAL PATCH TD SCH (10:10)
[2019-03-30] MEDS: PRENATAL VITAMINS W/ FOLIC ACID TABLET (FP) PO SCH (10:10)
[2019-03-30] MEDS: chlordiazePOXIDE 5 MG CAPSULE PO SCH ×2 (12:33→22:33)
--- NOTE | 2019-03-30 13:41 | PN ---
S CIWA - CIWA Score Nausea/Vomitin-Mild Nausea/No Vomiting Muscle Tremors: 4-Moderate,w/Arms Extend Anxiety: 3 Agitation: 2 Paroxysmal Sweats: 1-Minimal Palms Moist Orientation: 1-Uncertain about Date Tacttile Disturbances: 0-None Auditory Disturbances: 0-None Visual Disturbances: 0-None Headache: 1-Very Mild CIWA-Ar Total Score: 13 S Progress Note (SOAP) Subjective: anxiety tired restlessness Objective: 03/30/19 13:39 Vital Signs Temperature 97.2 F L 03/30/19 10:42 Pulse Rate 82 03/30/19 10:42 Respiratory Rate 20 03/30/19 10:42 Blood Pressure 143/91 03/30/19 10:42 O2 Sat by Pulse Oximetry (%) Laboratory Last Values WBC 6.4 K/mm3 (4.0-10.0) 03/29/19 09:55 RBC 4.26 M/mm3 (3.60-5.2) 03/29/19 09:55 Hgb 12.4 GM/dL (10.7-15.3) 03/29/19 09:55 Hct 36.5 % (32.4-45.2) D 03/29/19 09:55 MCV 85.8 fl (80-96) 03/29/19 09:55 MCH 29.0 pg (25.7-33.7) 03/29/19 09:55 MCHC 33.8 g/dl (32.0-36.0) 03/29/19 09:55 RDW 14.6 % (11.6-15.6) 03/29/19 09:55 Plt Count 272 K/MM3 (134-434) 03/29/19 09:55 MPV 8.5 fl (7.5-11.1) 03/29/19 09:55 Sodium 138 mmol/L (136-145) 03/29/19 09:55 Potassium 3.6 mmol/L (3.5-5.1) 03/29/19 09:55 Chloride 104 mmol/L (98-107) 03/29/19 09:55 Carbon Dioxide 28 mmol/L (21-32) 03/29/19 09:55 Anion Gap 7 MMOL/L (8-16) L 03/29/19 09:55 BUN 10 mg/dL (7-18) 03/29/19 09:55 Creatinine 0.6 mg/dL (0.55-1.3) 03/29/19 09:55 Creat Clearance w eGFR 119.04 (>60) 03/29/19 09:55 Random Glucose 106 mg/dL (74-106) 03/29/19 09:55 Calcium 9.4 mg/dL (8.5-10.1) 03/29/19 09:55 Total Bilirubin 0.6 mg/dL (0.2-1) 03/29/19 09:55 AST 15 U/L (15-37) 03/29/19 09:55 ALT 22 U/L (13-61) 03/29/19 09:55 Alkaline Phosphatase 65 U/L (45-117) 03/29/19 09:55 Total Protein 7.3 g/dl (6.4-8.2) 03/29/19 09:55 Albumin 3.6 g/dl (3.4-5.0) 03/29/19 09:55 RPR Titer Nonreactive (NONREACTIVE) 03/29/19 09:55 lab noted Assessment: 03/30/19 13:40 withdrawal sx Plan: continue detox
[2019-03-30] MEDS: hydrOXYzine PAMOATE 25 MG CAPSULE (FP) PO PRN (17:28)
[2019-03-30] MEDS ORDERED: cloNIDine HCL 0.1 MG TABLET PO ONE (19:52)
[2019-03-30] MEDS: THIAMINE HCL 100 MG TABLET (FP) PO SCH (22:32)
[2019-03-31] MEDS ORDERED: METHADONE HCL 10 MG TABLET ONE (04:06)
[2019-03-31] MEDS ORDERED: METHADONE HCL 40 MG DISPERSABLE TABLET ONE (04:06)
[2019-03-31] MEDS: chlordiazePOXIDE 5 MG CAPSULE PO SCH (05:54)
[2019-03-31] MEDS: METHADONE 80 MG, METHADONE 30 MG PO SCH (05:55)
[2019-03-31] MEDS: METHOCARBAMOL 500 MG TABLET PO PRN ×2 (05:57→22:25)
[2019-03-31] MEDS ORDERED: COLLOIDAL OATMEAL 1 BAR EACH TP PRN (09:17)
[2019-03-31] MEDS: PRENATAL VITAMINS W/ FOLIC ACID TABLET (FP) PO SCH (10:37)
[2019-03-31] MEDS: NICOTINE 21 MG/24 HOURS TOPICAL PATCH TD SCH (10:37)
[2019-03-31] MEDS: MINERAL OIL/PETROLAT/WATER TOPICAL CREAM 113 GM JAR TP SCH ×2 (10:37→22:03)
--- NOTE | 2019-03-31 12:12 | PN ---
S CIWA - CIWA Score Nausea/Vomitin-Mild Nausea/No Vomiting Muscle Tremors: 3 Anxiety: 2 Agitation: 2 Paroxysmal Sweats: 1-Minimal Palms Moist Orientation: 0-Oriented Tacttile Disturbances: 0-None Auditory Disturbances: 0-None Visual Disturbances: 0-None Headache: 0-None Present CIWA-Ar Total Score: 9 S Progress Note (SOAP) Subjective: feeling better today return to methadone maintenance program for seizure and asthma follow up Objective: 03/31/19 12:14 Vital Signs Temperature 97.8 F 03/31/19 09:54 Pulse Rate 76 03/31/19 09:54 Respiratory Rate 18 03/31/19 09:54 Blood Pressure 131/83 03/31/19 09:54 O2 Sat by Pulse Oximetry (%) Laboratory Last Values WBC 6.4 K/mm3 (4.0-10.0) 03/29/19 09:55 RBC 4.26 M/mm3 (3.60-5.2) 03/29/19 09:55 Hgb 12.4 GM/dL (10.7-15.3) 03/29/19 09:55 Hct 36.5 % (32.4-45.2) D 03/29/19 09:55 MCV 85.8 fl (80-96) 03/29/19 09:55 MCH 29.0 pg (25.7-33.7) 03/29/19 09:55 MCHC 33.8 g/dl (32.0-36.0) 03/29/19 09:55 RDW 14.6 % (11.6-15.6) 03/29/19 09:55 Plt Count 272 K/MM3 (134-434) 03/29/19 09:55 MPV 8.5 fl (7.5-11.1) 03/29/19 09:55 Sodium 138 mmol/L (136-145) 03/29/19 09:55 Potassium 3.6 mmol/L (3.5-5.1) 03/29/19 09:55 Chloride 104 mmol/L (98-107) 03/29/19 09:55 Carbon Dioxide 28 mmol/L (21-32) 03/29/19 09:55 Anion Gap 7 MMOL/L (8-16) L 03/29/19 09:55 BUN 10 mg/dL (7-18) 03/29/19 09:55 Creatinine 0.6 mg/dL (0.55-1.3) 03/29/19 09:55 Creat Clearance w eGFR 119.04 (>60) 03/29/19 09:55 Random Glucose 106 mg/dL (74-106) 03/29/19 09:55 Calcium 9.4 mg/dL (8.5-10.1) 03/29/19 09:55 Total Bilirubin 0.6 mg/dL (0.2-1) 03/29/19 09:55 AST 15 U/L (15-37) 03/29/19 09:55 ALT 22 U/L (13-61) 03/29/19 09:55 Alkaline Phosphatase 65 U/L (45-117) 03/29/19 09:55 Total Protein 7.3 g/dl (6.4-8.2) 03/29/19 09:55 Albumin 3.6 g/dl (3.4-5.0) 03/29/19 09:55 POC Urine HCG, Qual Negative 03/29/19 09:02 RPR Titer Nonreactive (NONREACTIVE) 03/29/19 09:55 HIV 1&2 Antibody Screen Negative 03/29/19 10:00 HIV P24 Antigen Negative 03/29/19 10:00 lab noted Assessment: 03/31/19 12:15 alcohol and benzo withdrawal sx Plan: continue detox
[2019-03-31] MEDS ORDERED: chlordiazePOXIDE HCL 10 MG CAPSULE PO PRN (13:00)
[2019-03-31] MEDS: hydrOXYzine PAMOATE 25 MG CAPSULE (FP) PO PRN (15:45)
[2019-03-31] MEDS: chlordiazePOXIDE HCL 10 MG CAPSULE PO SCH ×2 (16:41→22:25)
[2019-03-31] MEDS: THIAMINE HCL 100 MG TABLET (FP) PO SCH (22:25)
[2019-04-01] MEDS ORDERED: METHADONE HCL 10 MG TABLET ONE (04:40)
[2019-04-01] MEDS ORDERED: METHADONE HCL 40 MG DISPERSABLE TABLET ONE (04:41)
[2019-04-01] MEDS: METHADONE 80 MG, METHADONE 30 MG PO SCH (05:26)
[2019-04-01] MEDS: chlordiazePOXIDE HCL 10 MG CAPSULE PO SCH (05:27)
[2019-04-01 09:11] VITALS: BP 127/73; PULSE 64; TEMP 98.4
[2019-04-01] MEDS: METHOCARBAMOL 500 MG TABLET PO PRN (09:23)
[2019-04-01] MEDS: hydrOXYzine PAMOATE 25 MG CAPSULE (FP) PO PRN (09:23)
[2019-04-01] MEDS: PRENATAL VITAMINS W/ FOLIC ACID TABLET (FP) PO SCH (09:24)
--- NOTE | 2019-04-01 19:23 | DS ---
[facility] Detox Discharge Summary Admission Date: 03/29/19 Discharge Date: 04/01/19 - History Present History: Alcohol Dependence, Cannabis Dependence, Cocaine Dependence, Opioid Dependence, Sedative Dependence Additional Comments: PATIENT RETURNING TO [facility] [place], [place] (WHERE SHE WAS PREVIOUSLY A CLIENT) FOR AFTERCARE. PATIENT WILL CONSIDER [facility] ([place], [place]) POSSIBLE FUTURE AFTERCARE OPTION. PATIENT WAS DISCHARGED FROM DETOX UNIT IN STABLE MEDICAL CONDITION. Pertinent Past History: Seizure Disorder, History of Seizures (also due to Alcohol Withdrawal) Asthma, Bipolar Disorder, Anxiety, Depression, P.T.S.D., Hep C, Nicotine Dependence, M.M.T.P., Intravenous Drug User. - Physical Exam Results Vital Signs: Vital Signs Temperature 98.4 F 04/01/19 09:11 Pulse Rate 64 04/01/19 09:11 Respiratory Rate 18 04/01/19 09:11 Blood Pressure 127/73 04/01/19 09:11 O2 Sat by Pulse Oximetry (%) Pertinent Admission Physical Exam Findings: WITHDRAWAL SYMPTOMS. Laboratory Tests 03/29/19 03/29/19 03/29/19 09:02 09:55 09:55 WBC 6.4 RBC 4.26 Hgb 12.4 Hct 36.5 D MCV 85.8 MCH 29.0 MCHC 33.8 RDW 14.6 Plt Count 272 MPV 8.5 Sodium 138 Potassium 3.6 Chloride 104 Carbon Dioxide 28 Anion Gap 7 L BUN 10 Creatinine 0.6 Creat Clearance w eGFR 119.04 Random Glucose 106 Calcium 9.4 Total Bilirubin 0.6 AST 15 ALT 22 Alkaline Phosphatase 65 Total Protein 7.3 Albumin 3.6 POC Urine HCG, Qual Negative RPR Titer HIV 1&2 Antibody Screen HIV P24 Antigen 03/29/19 03/29/19 09:55 10:00 WBC RBC Hgb Hct MCV MCH MCHC RDW Plt Count MPV Sodium Potassium Chloride Carbon Dioxide Anion Gap BUN Creatinine Creat Clearance w eGFR Random Glucose Calcium Total Bilirubin AST ALT Alkaline Phosphatase Total Protein Albumin POC Urine HCG, Qual RPR Titer Nonreactive HIV 1&2 Antibody Screen Negative HIV P24 Antigen Negative LABS NOTED. - Treatment Hospital Course: Detox Protocol Followed, Detoxed Safely, Responded well, Discharged Condition Good Patient has Accepted a Rehab Referral to: PT RETURNING TO [facility], WILL CONSIDER [facility] FOR FUTURE. - Medication Discharge Medications: Ambulatory Orders Fluoxetine HCl [Prozac -] 20 mg PO DAILY 08/06/18 Gabapentin 600 mg PO TID 08/06/18 Albuterol Sulfate Inhaler - [Ventolin HFA Inhaler -] 2 inh PO Q4H PRN #1 inhaler 03/31/19 levETIRAcetam [Keppra -] 1,000 mg PO BID #30 tablet 03/31/19 - Diagnosis (1) Alcohol dependence Status: Acute Qualifiers: Substance use status: in withdrawal Complication of substance-induced condition: uncomplicated Qualified Code(s): F10.230 - Alcohol dependence with withdrawal, uncomplicated (2) Cannabis dependence Status: Acute (3) Cocaine dependence Status: Chronic Qualifiers: Substance use status: uncomplicated Qualified Code(s): F14.20 - Cocaine dependence, uncomplicated (4) IVDU (intravenous drug user) Status: Chronic (5) Methadone maintenance therapy patient Status: Chronic (6) Nicotine dependence Status: Chronic Qualifiers: Nicotine product type: cigarettes Substance use status: uncomplicated Qualified Code(s): F17.210 - Nicotine dependence, cigarettes, uncomplicated (7) Opioid dependence Status: Chronic Qualifiers: Substance use status: in withdrawal Qualified Code(s): F11.23 - Opioid dependence with withdrawal (8) Sedative dependence Status: Chronic - AMA Did Patient Leave Against Medical Advice: No
== END 2019-04-01 09:30 | disposition home or self-care (01) | DRG 773 ==
LOC: YASAS 05:20 → Y3N 09:47
PROVIDERS: ADMIT Surgery; ATTEND Surgery
PROC: HZ2ZZZZ Detoxification Services for Substance Abuse Treatment (ICD-10-PCS; principal; 2019-03-29)
DX: F10.230 Alcohol dependence with withdrawal, uncomplicated (principal); F11.20 Opioid dependence, uncomplicated; F13.230 Sedative, hypnotic or anxiolytic dependence with withdrawal, uncomplicated; F14.20 Cocaine dependence, uncomplicated; F12.20 Cannabis dependence, uncomplicated; F17.210 Nicotine dependence, cigarettes, uncomplicated; I10 Essential (primary) hypertension; J45.909 Unspecified asthma, uncomplicated; Z86.69 Personal history of other diseases of the nervous system and sense organs; Z91.5 Personal history of self-harm
CPT/HCPCS: 36415; 80053; 81025; 85027; 86593; 87389; J0735

== ENCOUNTER 2019-08-26 14:57 | Inpatient (IN) | payer OTHER ==
[2019-08-26 19:04] VITALS: BMI 39.4
--- NOTE | 2019-08-26 19:37 | HP ---
CIWA Score Nausea/Vomitin-No Nausea/No Vomiting Muscle Tremors: 1-None Visible, but [place] Anxiety: 2 Agitation: 1-Slight > Activity Paroxysmal Sweats: 2 Orientation: 0-Oriented Tacttile Disturbances: 0-None Auditory Disturbances: 0-None Visual Disturbances: 0-None Headache: 2-Mild CIWA-Ar Total Score: 8 - Admission Criteria OASAS Guidelines: Admission for Medically Managed Detox: Requires at least one of the followin. CIWA greater than 12 2. Seizures within the past 24 hours 3. Delirium tremens within the past 24 hours 4. Hallucinations within the past 24 hours 5. Acute intervention needed for co occurring medical disorder 6. Acute intervention needed for co occurring psychiatric disorder 7. Severe withdrawal that cannot be handled at a lower level of care (continued vomiting, continued diarrhea, abnormal vital signs) requiring intravenous medication and/or fluids 8. Admitting History and Physical - Past Medical History ...LMP: 06/28/18 - Smoking History Smoking history: Current every day smoker Have you smoked in the past 12 months: Yes Aproximately how many cigarettes per day: 20 - Alcohol/Substance Use Hx Alcohol Use: Yes Admission ROS [facility] Allergies/Adverse Reactions: Allergies Allergy/AdvReac Type Severity Reaction Status Date / Time lactose Allergy Verified 08/26/19 18:50 No Known Drug Allergies Allergy Verified 08/26/19 18:50 History of Present Illness: pt here requesting admission for alcohol and benzo use , reports etoh since age 14 , current daily use 1 pints/day and 1x 6-pk / day , starts drinking in the afternoon , reports sweating and nausea if not drinking , had w/ d seizures most recently June 2019 , on Keppra from neurology @ [facility] , latset taken 1 week ago . Latest alcohol use this morning , current alex 0.007. Benzo : xanax 2-4 mg /day , latest use this morning , first age of use 20 cocaine - 40 $ /day ivdu , abscess in the past. cannabis - since age 14 ,occasional use. tobacco : 1 ppd , first age of use 14 opiates : heroin 1.5 bundles /day , on MMTP @ [facility] current dose 110 mg latest dosed today fentanyl - varied amounts daily. [place] from exchange, denies sharing , + re- using . denies other illicits PMHX: seizure d/o ( no meds x 1 week ), asthma, bipolar, anxiety, PTSD , depression , states peripheral neuropathy on Gabapentin rx . Denies suicidal / homicidal ideation. Longest period of sobriety two years while in [facility] x 9 mo on MMTP . PSHX : cervical conization pre-term labor Nov 2016 25 weeks , LMP 08/19/19 , has 6 yr old child ( son ) in [place] denies current ACS involvement current legal :denies , lives w/ family UNABLE to verify meds from pharmacy [facility] as it was closed , Gabapentin held pending verification Exam Limitations: No Limitations - Ebola screening Have you traveled outside of the country in the last 21 days: No (N) Have you had contact with anyone from an Ebola affected area: No Do you have a fever: No - Review of Systems Constitutional: No Symptoms Reported EENT: reports: No Symptoms Reported Respiratory: reports: No Symptoms reported Cardiac: reports: No Symptoms Reported GI: reports: Constipated : reports: No Symptoms Reported Musculoskeletal: reports: No Symptoms Reported Integumentary: reports: No Symptoms Reported Neuro: reports: See HPI Endocrine: reports: No Symptoms Reported Psychiatric: reports: Orientated x3, Anxious Patient History - Patient Medical History Hx Anemia: No Hx Asthma: Yes Hx Chronic Obstructive Pulmonary Disease (COPD): No Hx Cancer: No Hx Cardiac Disorders: No Hx Congestive Heart Failure: No Hx Hypertension: Yes Hx Hypercholesterolemia: No Hx Pacemaker: No HX Cerebrovascular Accident: No Hx Seizures: Yes (R/O alcohol April 2018) Hx Dementia: No Hx Diabetes: No Hx Gastrointestinal Disorders: No Hx Liver Disease: No Hx Genitourinary Disorders: No Hx Sexually Transmitted Disorders: No Hx Renal Disease (ESRD): No Hx Thyroid Disease: No Hx Human Immunodeficiency Virus (HIV): No (last tested April 2018, neg ) Hx Hepatitis C: Yes Hx Depression: Yes Hx Suicide Attempt: Yes (by cutting wrist in 2004 and 2014) Hx Schizophrenia: No - Patient Surgical History Past Surgical History: Yes Hx Neurologic Surgery: No Hx Cataract Extraction: No Hx Cardiac Surgery: No Hx Lung Surgery: No Hx Breast Surgery: No Hx Breast Biopsy: No Hx Abdominal Surgery: No Hx Appendectomy: No Hx Cholecystectomy: No Hx Genitourinary Surgery: No Hx Section: No Hx Orthopedic Surgery: No Other Surgical History: conization of cervix on 03/29/15 for abnormal pap smear, follow up with own - PPD History Date: 08/04/18 Results: 0mm - Reproductive History Last Menstrual Period: 06/28/18 - Smoking Cessation Smoking history: Current every day smoker Have you smoked in the past 12 months: Yes Aproximately how many cigarettes per day: 20 Cigars Per Day: 0 Hx Chewing Tobacco Use: No Initiated information on smoking cessation: No - Substances abused Heroin Substance route: Injection Frequency: Daily Amount used: 10 t0 20 bags Age of first use: 22 Date of last use: 08/26/19 Cocaine Substance route: Injection Frequency: Daily Amount used: 40 dollars Age of first use: 18 Date of last use: 08/25/19 Alcohol Substance route: Oral Frequency: Daily Amount used: 6 packs of beer/ 1 pint vodka Age of first use: 14 Date of last use: 08/26/19 Alprazolam (Xanax) Substance route: Oral Frequency: Daily Amount used: 2 to 4 mg Age of first use: 18 Date of last use: 08/26/19 Benzodiazepine (Klonopin) Substance route: Oral Frequency: Daily Amount used: 2 to 8 mg Age of first use: 18 Date of last use: 03/28/19 Admission Physical Exam S - Vital Signs Vital Signs: Vital Signs - 24 hr 08/26/19 18:50 Temperature 96.9 F L Pulse Rate 72 Respiratory 20 Rate Blood Pressure 133/77 - Physical General Appearance: Yes: Mild Distress, Anxious HEENTM: Yes: EOMI, Hearing grossly Normal, Normocephalic, Normal Voice, Nasal Congestion, Rhinorrhea Respiratory: Yes: Chest Non-Tender, Lungs Clear, Normal Breath Sounds, No Respiratory Distress, No Accessory Muscle Use Neck: Yes: No masses,lesions,Nodules, Trachea in good position Cardiology: Yes: Regular Rhythm, Regular Rate, S1, S2 Abdominal: Yes: Normal Bowel Sounds, Non Tender, Flat, Soft Musculoskeletal: Yes: full range of Motion, Gait Steady Extremities: Yes: Normal Capillary Refill, Normal Range of Motion, Non-Tender Neurological: Yes: Fully Oriented, Alert, Motor Strength 5/5, Normal Mood/Affect Integumentary: Yes: Warm - Diagnostic (1) Alcohol dependence Current Visit: Yes Status: Acute Qualifiers: Substance use status: in withdrawal Complication of substance-induced condition: uncomplicated Qualified Code(s): F10.230 - Alcohol dependence with withdrawal, uncomplicated (2) Cocaine dependence Current Visit: Yes Status: Chronic Qualifiers: Substance use status: uncomplicated Qualified Code(s): F14.20 - Cocaine dependence, uncomplicated (3) Methadone maintenance therapy patient Current Visit: Yes Status: Chronic Comment: MMTP: Sesar Barrios on methadone 90 mg, dose pending verification (4) Nicotine dependence Current Visit: Yes Status: Chronic Qualifiers: Nicotine product type: cigarettes Substance use status: uncomplicated Qualified Code(s): F17.210 - Nicotine dependence, cigarettes, uncomplicated (5) Sedative, hypnotic or anxiolytic dependence with withdrawal, uncomplicated Current Visit: Yes Status: Chronic Breathalyzer - Breathalyzer Breathalyzer: 0 Urine Drug Screen - Test Device Lot number: [id number] Expiration date: 04/22/21 - Control Is test valid?: Yes - Results Drug screen NEGATIVE: No Urine drug screen results: MILTON-Cocaine, FEN-Fentanyl, MOP-Opiates, MTD-Methadone , BZO-Benzodiazepines Inpatient Rehab Admission - Rehab Decision to Admit Inpatient rehab admission?: No
[2019-08-26] MEDS ORDERED: MAGNESIUM HYDROX 2400MG/30ML ORAL SUSPENSION 30 ML CUP PO PRN (19:47)
[2019-08-26] MEDS ORDERED: MAG HYDROX/AL HYDROX/SIMETH 30 ML UNIT-DOSE CUP PO PRN (19:47)
[2019-08-26] MEDS ORDERED: BISMUTH SUBSALICYLATE 524 MG/30 ML UD PO PRN (19:47)
[2019-08-26] MEDS ORDERED: MAGNESIUM CITRATE 300 ML BOTTLE PO PRN (19:47)
[2019-08-26] MEDS ORDERED: ACETAMINOPHEN 325 MG TABLET (FP) PO PRN ×2 (19:47)
[2019-08-26] MEDS ORDERED: IBUPROFEN 400 MG TABLET (FP) PO PRN (19:47)
[2019-08-26] MEDS ORDERED: chlordiazePOXIDE HCL 25 MG CAPSULE PO PRN (19:49)
[2019-08-26] MEDS: levETIRAcetam 500 MG TABLET (FP) PO SCH (21:21)
[2019-08-26] MEDS: MELATONIN 5 MG TABLETS PO PRN (21:23)
[2019-08-26] MEDS: THIAMINE HCL 100 MG TABLET (FP) PO SCH (21:23)
[2019-08-26] MEDS ORDERED: GABAPENTIN 300 MG CAPSULE (FP) PO SCH (22:00)
[2019-08-26] MEDS: chlordiazePOXIDE HCL 25 MG CAPSULE PO SCH (23:32)
[2019-08-27] MEDS: chlordiazePOXIDE HCL 25 MG CAPSULE PO SCH ×4 (05:55→23:10)
[2019-08-27] MEDS: PRENATAL VITAMINS W/ FOLIC ACID TABLET (FP) PO SCH (10:26)
[2019-08-27] MEDS: levETIRAcetam 500 MG TABLET (FP) PO SCH ×2 (10:26→23:10)
[2019-08-27] MEDS: NICOTINE 14 MG/24 HOURS TOPICAL PATCH TD SCH (10:26)
[2019-08-27] MEDS: ALBUTEROL SO4 8 GM HFA INHALER IH PRN ×2 (10:27→23:11)
--- NOTE | 2019-08-27 10:56 | CONSULT ---
[facility] Psychiatric Consult - Data Date of interview: 08/27/19 Admission source: [facility] Identifying data: Patient is a 29 year old single, without children, unemployed , homeless, and is not receiving any financial assistance. This is one of multiple admissions for patient. Patient admitted to for alcohol, opiate, and benzodiazepine dependence. Substance Abuse History: Smoking Cessation. Smoking history: Current every day smoker. Have you smoked in the past 12 months: Yes. Aproximately how many cigarettes per day: 20. Cigars Per Day: 0. Hx Chewing Tobacco Use: No. Initiated information on smoking cessation: No. - Substances abused. Heroin. Substance route: Injection. Frequency: Daily. Amount used: 10 t0 20 bags. Age of first use: 22. Date of last use: 08/26/19. Cocaine. Substance route: Injection. Frequency: Daily. Amount used: 40 dollars. Age of first use: 18. Date of last use: 08/25/19. Alcohol. Substance route: Oral. Frequency: Daily. Amount used: 6 packs of beer/ 1 pint vodka. Age of first use: 14. Date of last use: 08/26/19. Alprazolam (Xanax). Substance route: Oral. Frequency: Daily. Amount used: 2 to 4 mg. Age of first use: 18. Date of last use: 08/26/19. Benzodiazepine (Klonopin). Substance route: Oral. Frequency: Daily. Amount used: 2 to 8 mg. Age of first use: 18. Date of last use: 03/28/19 Medical History: Asthma, hypertension, seizures (drug use 2018) Psychiatric History: Ms. Salinas reports history of multiple psychiatric hospitalizations, most recently at [facility] last month for depression and suicidal ideation. Wellbutrin (unknown dose) + Lexapro 10mg + Trazodone 50mg HS +gabapentin 300mg TID. Reports being started on wellbutrin while at [facility]. Ms. Salinas has not taken medications since discharged on 08/08/19. Stated that before admission to [facility] she was at [facility] and [facility] rehab and was prescribed lexapro 10mg + Gabapentin 300mg TID + Trazodone 50mg HS. Marycarmen is also known to [facility]. Patient reports additional diagnosis of anxiety disorder and PTSD (her son before delivery. States the cord was wrapped around his neck). Patient reports past treatment with Prozac and celexa. History of two suicide attempt by self mutilation (most recently in 2014). Patient denies current outpatient psychiatric medications. At present, patient reports feeling sad and is experiencing difficulty sleeping. Physical/Sexual Abuse/Trauma History: denies. Mental Status Exam - Mental Status Exam Alert and Oriented to: Time, Place, Person Cognitive Function: Good Patient Appearance: Well Groomed Mood: Sad Affect: Mood Congruent Patient Behavior: Cooperative Speech Pattern: Appropriate Voice Loudness: Normal Thought Process: Goal Oriented Thought Disorder: Not Present Hallucinations: Denies Suicidal Ideation: Denies Homicidal Ideation: Denies Insight/Judgement: Poor Sleep: Fair Appetite: Fair Muscle strength/Tone: Normal Gait/Station: Normal Psychiatric Findings - Problem List ([place] 1, 2,3) (1) Alcohol dependence Current Visit: Yes Status: Acute Qualifiers: Substance use status: in withdrawal Complication of substance-induced condition: uncomplicated Qualified Code(s): F10.230 - Alcohol dependence with withdrawal, uncomplicated (2) Cocaine dependence Current Visit: Yes Status: Chronic Qualifiers: Substance use status: uncomplicated Qualified Code(s): F14.20 - Cocaine dependence, uncomplicated (3) Methadone maintenance therapy patient Current Visit: Yes Status: Chronic Comment: MMTP: [facility] on methadone 90 mg, dose pending verification (4) Substance induced mood disorder Current Visit: Yes Status: Chronic (5) Nicotine dependence Current Visit: Yes Status: Chronic Qualifiers: Nicotine product type: cigarettes Substance use status: uncomplicated Qualified Code(s): F17.210 - Nicotine dependence, cigarettes, uncomplicated (6) Sedative, hypnotic or anxiolytic dependence with withdrawal, uncomplicated Current Visit: Yes Status: Chronic (7) Substance-induced sleep disorder Current Visit: Yes Status: Acute (8) Depressive disorder Current Visit: Yes Status: Chronic - Initial Treatment Plan Initial Treatment Plan: Psychoeducation provided. Detoxification in progress. [facility] contacted at and [facility] contacted at [phone] for verfication of gabapentin dose. As per both pharmacist there are no prescriptions of gabapentin for 2019. Will order Lexapro 10mg + Trazodone 50mg. Benefits and side effects discussed. Verbal consent given.
[2019-08-27 11:21] LABS: HEMATOCRIT 35.4 % (32.4-45.2); HEMOGLOBIN 12.1 GM/dL (10.7-15.3); MCH 29.3 pg (25.7-33.7); MCHC 34.1 g/dl (32.0-36.0); MEAN PLT VOLUME 8.7 fl (7.5-11.1); PLATELET COUNT 245 K/MM3 (134-434); RBC 4.12 M/mm3 (3.60-5.2); RDW 13.7 % (11.6-15.6); WHITE BLOOD COUNT 4.8 K/mm3 (4.0-10.0)
[2019-08-27 11:30] LABS: ALBUMIN 3.2 g/dl (3.4-5.0); BILIRUBIN,TOTAL 0.2 mg/dL (0.2-1); BLOOD UREA NITROGEN 10.4 mg/dL (7-18); CALCIUM 8.5 mg/dL (8.5-10.1); CREATININE 0.7 mg/dL (0.55-1.3); POTASSIUM 4.1 mmol/L (3.5-5.1); TOT PROT 6.7 g/dl (6.4-8.2)
[2019-08-27] MEDS ORDERED: METHADONE HCL 40 MG DISPERSABLE TABLET PO SCH (12:00)
[2019-08-27] MEDS ORDERED: METHADONE HCL 10 MG TABLET ONE (12:07)
[2019-08-27] MEDS ORDERED: METHADONE HCL 40 MG DISPERSABLE TABLET ONE (12:07)
[2019-08-27] MEDS ORDERED: METHADONE 80 MG, METHADONE 30 MG PO ONE (12:15)
--- NOTE | 2019-08-27 14:16 | PN ---
S CIWA - CIWA Score Nausea/Vomitin-No Nausea/No Vomiting Muscle Tremors: 2 Anxiety: 2 Agitation: 0-Normal Activity Paroxysmal Sweats: 2 Orientation: 0-Oriented Tacttile Disturbances: 0-None Auditory Disturbances: 0-None Visual Disturbances: 0-None Headache: 1-Very Mild CIWA-Ar Total Score: 7 S Progress Note (SOAP) Subjective: c/o sweats, anxiety, and headache. Objective: 08/27/19 14:15 Vital Signs 08/27/19 13:53 Temperature 98.4 F Pulse Rate 77 Respiratory 18 Rate Blood Pressure 131/71 Lab Results WBC 4.8 K/mm3 (4.0-10.0) 08/27/19 08:10 RBC 4.12 M/mm3 (3.60-5.2) 08/27/19 08:10 Hgb 12.1 GM/dL (10.7-15.3) 08/27/19 08:10 Hct 35.4 % (32.4-45.2) 08/27/19 08:10 MCV 86.0 fl (80-96) 08/27/19 08:10 MCHC 34.1 g/dl (32.0-36.0) 08/27/19 08:10 RDW 13.7 % (11.6-15.6) 08/27/19 08:10 Plt Count 245 K/MM3 (134-434) 08/27/19 08:10 Sodium 140 mmol/L (136-145) 08/27/19 08:10 Potassium 4.1 mmol/L (3.5-5.1) 08/27/19 08:10 Chloride 108 mmol/L (98-107) H 08/27/19 08:10 Carbon Dioxide 26 mmol/L (21-32) 08/27/19 08:10 Anion Gap 6 MMOL/L (8-16) L 08/27/19 08:10 BUN 10.4 mg/dL (7-18) 08/27/19 08:10 Creatinine 0.7 mg/dL (0.55-1.3) 08/27/19 08:10 Random Glucose 101 mg/dL (74-106) 08/27/19 08:10 Calcium 8.5 mg/dL (8.5-10.1) 08/27/19 08:10 Labs noted. Assessment: 08/27/19 14:15 AOX3, in no acute respiratory distress. Full ROM, ambulating in the unit. Withdrawal symptoms. Plan: continue detox.
[2019-08-27] MEDS ORDERED: COLLOIDAL OATMEAL 1 BAR EACH TP PRN (15:26)
[2019-08-27] MEDS: hydrOXYzine PAMOATE 25 MG CAPSULE (FP) PO PRN (18:03)
[2019-08-27] MEDS: traZODone HCL 50 MG TABLET (FP) PO SCH (23:10)
[2019-08-27] MEDS: THIAMINE HCL 100 MG TABLET (FP) PO SCH (23:10)
[2019-08-27] MEDS: MELATONIN 5 MG TABLETS PO PRN (23:11)
[2019-08-27] MEDS: MENTHOL/PHENOL 1 EACH UD MM PRN (23:13)
[2019-08-28] MEDS ORDERED: METHADONE HCL 10 MG TABLET ONE (04:26)
[2019-08-28] MEDS ORDERED: METHADONE HCL 40 MG DISPERSABLE TABLET ONE (04:27)
[2019-08-28] MEDS: chlordiazePOXIDE HCL 25 MG CAPSULE PO SCH ×4 (05:28→22:28)
[2019-08-28] MEDS: ALBUTEROL SO4 8 GM HFA INHALER IH PRN ×2 (05:28→22:32)
[2019-08-28] MEDS: METHADONE 80 MG, METHADONE 30 MG PO SCH (05:28)
[2019-08-28] MEDS: PRENATAL VITAMINS W/ FOLIC ACID TABLET (FP) PO SCH (10:17)
[2019-08-28] MEDS: levETIRAcetam 500 MG TABLET (FP) PO SCH ×2 (10:17→22:28)
[2019-08-28] MEDS: ESCITALOPRAM OXALATE 10 MG TABLET (FP) PO SCH (10:17)
[2019-08-28] MEDS: NICOTINE 14 MG/24 HOURS TOPICAL PATCH TD SCH (10:18)
[2019-08-28] MEDS: METHOCARBAMOL 500 MG TABLET PO PRN (10:19)
--- NOTE | 2019-08-28 11:22 | EKG ---
Test Reason : Blood Pressure : / mmHG Vent. Rate : 070 BPM Atrial Rate : 070 BPM P-R Int : 138 ms QRS Dur : 082 ms QT Int : 426 ms P-R-T Axes : 032 048 015 degrees QTc Int : 460 ms NORMAL SINUS RHYTHM WHEN COMPARED WITH ECG OF 02-AUG-2018 21:15, QT HAS LENGTHENED Confirmed by DI HARRIS MD ([id number]) on 08/28/2019 11:21:34 AM Referred By: Confirmed By:DI HARRIS MD
--- NOTE | 2019-08-28 17:13 | PN ---
S CIWA - CIWA Score Nausea/Vomitin-Mild Nausea/No Vomiting Muscle Tremors: 3 Anxiety: 1-Mildly Anxious Agitation: 0-Normal Activity Paroxysmal Sweats: 3 Orientation: 0-Oriented Tacttile Disturbances: 0-None Auditory Disturbances: 0-None Visual Disturbances: 0-None Headache: 0-None Present CIWA-Ar Total Score: 8 BHS Progress Note (SOAP) Subjective: sweats tremors Objective: 08/28/19 17:12 A & O x 3 not in distress anxious Vital Signs Temperature 98.2 F 08/28/19 16:46 Pulse Rate 68 08/28/19 16:46 Respiratory Rate 18 08/28/19 16:46 Blood Pressure 138/71 08/28/19 16:46 O2 Sat by Pulse Oximetry (%) Assessment: 08/28/19 17:12 withdrawal sx Plan: continue detox increase hydration
[2019-08-28] MEDS: THIAMINE HCL 100 MG TABLET (FP) PO SCH (22:28)
[2019-08-28] MEDS: traZODone HCL 50 MG TABLET (FP) PO SCH (22:28)
[2019-08-28] MEDS: hydrOXYzine PAMOATE 25 MG CAPSULE (FP) PO PRN (22:29)
[2019-08-28] MEDS: MENTHOL/PHENOL 1 EACH UD MM PRN (22:31)
[2019-08-29] MEDS ORDERED: chlordiazePOXIDE HCL 10 MG CAPSULE PO PRN
[2019-08-29] MEDS ORDERED: METHADONE HCL 10 MG TABLET ONE (05:01)
[2019-08-29] MEDS ORDERED: METHADONE HCL 40 MG DISPERSABLE TABLET ONE (05:02)
[2019-08-29] MEDS: METHADONE 80 MG, METHADONE 30 MG PO SCH (07:07)
[2019-08-29] MEDS: chlordiazePOXIDE HCL 10 MG CAPSULE PO SCH ×4 (07:07→22:04)
[2019-08-29] MEDS: PRENATAL VITAMINS W/ FOLIC ACID TABLET (FP) PO SCH (10:10)
[2019-08-29] MEDS: levETIRAcetam 500 MG TABLET (FP) PO SCH ×2 (10:10→22:03)
[2019-08-29] MEDS: ESCITALOPRAM OXALATE 10 MG TABLET (FP) PO SCH (10:10)
[2019-08-29] MEDS: NICOTINE 14 MG/24 HOURS TOPICAL PATCH TD SCH (10:10)
[2019-08-29] MEDS: METHOCARBAMOL 500 MG TABLET PO PRN (10:11)
[2019-08-29] MEDS ORDERED: AZITHROMYCIN 250 MG TABLET PO ONE (10:19)
[2019-08-29] MEDS ORDERED: ALBUTEROL SO4 2.5/IPRATROPIUM 0.5 INH SOL 3 ML VIAL.NEB. NEB PRN (10:23)
[2019-08-29] MEDS ORDERED: ALBUTEROL SO4 2.5/IPRATROPIUM 0.5 INH SOL 3 ML VIAL.NEB. NEB ONE (10:23)
--- NOTE | 2019-08-29 10:27 | PN ---
S CIWA - CIWA Score Nausea/Vomitin-No Nausea/No Vomiting Muscle Tremors: 2 Anxiety: 1-Mildly Anxious Agitation: 2 Paroxysmal Sweats: 1-Minimal Palms Moist Orientation: 0-Oriented Tacttile Disturbances: 0-None Auditory Disturbances: 0-None Visual Disturbances: 0-None Headache: 0-None Present CIWA-Ar Total Score: 6 BHS Progress Note (SOAP) Subjective: interrupted sleep coughing irritable agitation Objective: 08/29/19 10:25 Vital Signs Temperature 97.7 F 08/29/19 09:16 Pulse Rate 69 08/29/19 09:16 Respiratory Rate 16 08/29/19 09:16 Blood Pressure 112/67 08/29/19 09:16 O2 Sat by Pulse Oximetry (%) Laboratory Tests 08/27/19 08/27/19 08/27/19 08:10 08:10 08:10 WBC 4.8 RBC 4.12 Hgb 12.1 Hct 35.4 MCV 86.0 MCH 29.3 MCHC 34.1 RDW 13.7 Plt Count 245 MPV 8.7 Sodium 140 Potassium 4.1 Chloride 108 H Carbon Dioxide 26 Anion Gap 6 L BUN 10.4 Creatinine 0.7 Est GFR (CKD-EPI)AfAm 136.66 Est GFR (CKD-EPI)NonAf 117.91 Random Glucose 101 Calcium 8.5 Total Bilirubin 0.2 AST 14 L ALT 27 Alkaline Phosphatase 58 Total Protein 6.7 Albumin 3.2 L RPR Titer Nonreactive aaox3 ambulating no acute distress lab noted Assessment: 08/29/19 10:26 withdrawals lungs assessed; some rhonchi noted on inspiration Plan: continue detox increase fluids zithromax x 4 days ordered duoneb prn
[2019-08-29] MEDS: hydrOXYzine PAMOATE 25 MG CAPSULE (FP) PO PRN (13:19)
[2019-08-29] MEDS: THIAMINE HCL 100 MG TABLET (FP) PO SCH (22:03)
[2019-08-29] MEDS: traZODone HCL 50 MG TABLET (FP) PO SCH (22:04)
[2019-08-29] MEDS: ALBUTEROL SO4 8 GM HFA INHALER IH PRN (22:05)
[2019-08-30] MEDS ORDERED: METHADONE HCL 40 MG DISPERSABLE TABLET ONE (05:05)
[2019-08-30] MEDS ORDERED: METHADONE HCL 10 MG TABLET ONE (05:05)
[2019-08-30] MEDS: chlordiazePOXIDE HCL 10 MG CAPSULE PO SCH ×2 (05:43→17:31)
[2019-08-30] MEDS: METHADONE 80 MG, METHADONE 30 MG PO SCH (05:43)
[2019-08-30] MEDS ORDERED: AZITHROMYCIN 250 MG TABLET PO SCH (10:00)
[2019-08-30] MEDS: NICOTINE 14 MG/24 HOURS TOPICAL PATCH TD SCH (10:17)
[2019-08-30] MEDS: PRENATAL VITAMINS W/ FOLIC ACID TABLET (FP) PO SCH (10:17)
[2019-08-30] MEDS: ESCITALOPRAM OXALATE 10 MG TABLET (FP) PO SCH (10:17)
[2019-08-30] MEDS: levETIRAcetam 500 MG TABLET (FP) PO SCH ×2 (10:17→22:10)
[2019-08-30] MEDS: METHOCARBAMOL 500 MG TABLET PO PRN ×3 (10:18→23:36)
[2019-08-30] MEDS: hydrOXYzine PAMOATE 25 MG CAPSULE (FP) PO PRN (13:09)
--- NOTE | 2019-08-30 14:13 | PN ---
S CIWA - CIWA Score Nausea/Vomitin-No Nausea/No Vomiting Muscle Tremors: 2 Anxiety: 1-Mildly Anxious Agitation: 2 Paroxysmal Sweats: No Perspiration Orientation: 0-Oriented Tacttile Disturbances: 0-None Auditory Disturbances: 0-None Visual Disturbances: 0-None Headache: 0-None Present CIWA-Ar Total Score: 5 BHS Progress Note (SOAP) Subjective: sweats Objective: 08/30/19 14:12 Vital Signs Temperature 97.9 F 08/30/19 13:40 Pulse Rate 72 08/30/19 13:40 Respiratory Rate 18 08/30/19 13:40 Blood Pressure 104/61 08/30/19 13:40 O2 Sat by Pulse Oximetry (%) aaox3 ambulating no acute distress Assessment: 08/30/19 14:12 mild withdrawals Plan: continue detox d/c in am
--- NOTE | 2019-08-30 16:21 | PN ---
[facility] Progress Note Note: Psychiatry Attending's note : Called by counselor to issue scripts. Patient scheduled for discharge on 08/31/19. Ms Salinas is already known to this institution. Chart reviewed. golf shoe spike assembler Julian Brown's note of 08/27/19 : appreciated. 29 y/o female self-referred for detoxification (opioid, cocaine, benzodiazepine, alcohol). LISS (substance use disorder) issues are co-morbid with depressive disorder. Medications revisited. Contact made with [employer] [employer]. Via telephone ([phone] + [phone] respectively). No recent contact. Nurses's notes read. Hospital course reviewed. Met with the patient (in person). [place], psychiatric nursing aide Muriel Hunt, witnessed the encounter (with patient's verbal consent). Patient is pleasant, affable, cooperative, well-groomed, coherent, goal- directed and cognitively intact. No evidence of psychosis. Stable mood. Appropriate affect. Clear and logical speech. No thought disorder elicited. Ms Salinas is future-oriented : has agreed to enter rehabilitative care at [facility] for preservation of sobriety. No current risk of suicide or homicide attempt. " I want to change my lifestyle. Take care of myself. I want to stay clear of drugs and live better." Patient declares that she understands the risks associated with substance abuse ( via accidental overdose, medical illnesses, legal complications). In addition to deterioration of general functioning, poor quality of life, social downdrift, estrangement from relatives and strained interpersonal relationships. Good judgment and fair insight. Benign and uneventful clinical course. Medications are well tolerated. Detoxification continues to progress safely. Patient is well. Stable mental status. Intervention : . Side effects/benefits of escitalopram (lexapro) + trazodone are explained to the patient. . Psychoeducation provided in this session. Initiatives for relapse prevention ( MAT) : discussed. . Encouragement given to the patient. Praised for her decision to transition to rehabilitation. . Motivational counseling is reinforced. . Scripts for lexapro 10 mg po daily + trazodone 50 mg po hs are electronically sent to [facility]. . 30 day supply of medications. Patient gave verbal consent to this plan of care.
[2019-08-30] MEDS: THIAMINE HCL 100 MG TABLET (FP) PO SCH (22:10)
[2019-08-30] MEDS: traZODone HCL 50 MG TABLET (FP) PO SCH (22:10)
[2019-08-31] MEDS ORDERED: METHADONE HCL 10 MG TABLET ONE (04:00)
[2019-08-31] MEDS ORDERED: METHADONE HCL 40 MG DISPERSABLE TABLET ONE (04:01)
[2019-08-31] MEDS ORDERED: chlordiazePOXIDE HCL 10 MG CAPSULE PO ONE (05:00)
[2019-08-31 06:25] VITALS: BP 114/47; PULSE 64; TEMP 97
[2019-08-31] MEDS: METHADONE 80 MG, METHADONE 30 MG PO SCH (06:41)
--- NOTE | 2019-08-31 10:00 | DS ---
[facility] Detox Discharge Summary Admission Date: 08/26/19 Discharge Date: 08/31/19 - History Present History: Alcohol Dependence, Cannabis Dependence, Cocaine Dependence, Opioid Dependence, Sedative Dependence, MMTP - Physical Exam Results Vital Signs: Vital Signs Temperature 97 F L 08/31/19 06:24 Pulse Rate 64 08/31/19 06:24 Respiratory Rate 18 08/31/19 06:24 Blood Pressure 114/47 L 08/31/19 06:24 O2 Sat by Pulse Oximetry (%) Pertinent Admission Physical Exam Findings: pt arrived in withdrawals Laboratory Tests 08/26/19 08/27/19 08/27/19 19:22 08:10 08:10 WBC 4.8 RBC 4.12 Hgb 12.1 Hct 35.4 MCV 86.0 MCH 29.3 MCHC 34.1 RDW 13.7 Plt Count 245 MPV 8.7 Sodium 140 Potassium 4.1 Chloride 108 H Carbon Dioxide 26 Anion Gap 6 L BUN 10.4 Creatinine 0.7 Est GFR (CKD-EPI)AfAm 136.66 Est GFR (CKD-EPI)NonAf 117.91 Random Glucose 101 Calcium 8.5 Total Bilirubin 0.2 AST 14 L ALT 27 Alkaline Phosphatase 58 Total Protein 6.7 Albumin 3.2 L POC Urine HCG, Qual Negative RPR Titer 08/27/19 08:10 WBC RBC Hgb Hct MCV MCH MCHC RDW Plt Count MPV Sodium Potassium Chloride Carbon Dioxide Anion Gap BUN Creatinine Est GFR (CKD-EPI)AfAm Est GFR (CKD-EPI)NonAf Random Glucose Calcium Total Bilirubin AST ALT Alkaline Phosphatase Total Protein Albumin POC Urine HCG, Qual RPR Titer Nonreactive today pt is aaox3 ambulating no acute distress no s/s of withdrawals - Treatment Hospital Course: Detox Protocol Followed, Detoxed Safely, Responded well, Discharged Condition Good, Rehab Referral Accepted Patient has Accepted a Rehab Referral to: pt referred to [facility] inpatient rehab - Medication Discharge Medications: Ambulatory Orders Gabapentin 600 mg PO TID 08/06/18 Escitalopram Oxalate [Lexapro -] 10 mg PO DAILY 08/26/19 Azithromycin [Zithromax 250mg Tablets -] 250 mg PO DAILY #2 tablet 08/30/19 levETIRAcetam [Keppra -] 1,000 mg PO BID #30 tablet 08/30/19 traZODone HCL [Trazodone HCl] 50 mg PO HS #30 tablet 08/30/19 - Diagnosis (1) Substance-induced sleep disorder Current Visit: Yes Status: Acute (2) Cocaine dependence Current Visit: Yes Status: Chronic Qualifiers: Substance use status: uncomplicated Qualified Code(s): F14.20 - Cocaine dependence, uncomplicated (3) Depressive disorder Current Visit: Yes Status: Chronic (4) Methadone maintenance therapy patient Current Visit: Yes Status: Chronic (5) Nicotine dependence Current Visit: Yes Status: Chronic Qualifiers: Nicotine product type: cigarettes Substance use status: uncomplicated Qualified Code(s): F17.210 - Nicotine dependence, cigarettes, uncomplicated (6) Sedative, hypnotic or anxiolytic dependence with withdrawal, uncomplicated Current Visit: Yes Status: Chronic (7) Substance induced mood disorder Current Visit: Yes Status: Chronic (8) Bipolar I disorder, current episode depressed Current Visit: No Status: Acute (9) Cannabis dependence Current Visit: No Status: Acute (10) UTI (urinary tract infection) Current Visit: Yes Status: Chronic (11) Asthma Current Visit: Yes Status: Chronic Qualifiers: Asthma severity: mild Asthma persistence: unspecified (12) Essential (primary) hypertension Current Visit: Yes Status: Chronic (13) IVDU (intravenous drug user) Current Visit: Yes Status: Chronic (14) Sedative dependence Current Visit: Yes Status: Chronic (15) UTI (urinary tract infection) Current Visit: Yes Status: Acute Qualifiers: Urinary tract infection type: acute cystitis Hematuria presence: without hematuria Qualified Code(s): N30.00 - Acute cystitis without hematuria (16) Depression Current Visit: No Status: Suspected Qualifiers: Depression Type: unspecified Qualified Code(s): F32.9 - Major depressive disorder, single episode, unspecified - AMA Did Patient Leave Against Medical Advice: No
== END 2019-08-31 09:53 | disposition home or self-care (01) | DRG 773 ==
LOC: YASAS 14:57 → Y6N 20:13
PROVIDERS: ADMIT Allergy & Immunology; ATTEND Allergy & Immunology
PROC: HZ2ZZZZ Detoxification Services for Substance Abuse Treatment (ICD-10-PCS; principal; 2019-08-26)
DX: F10.230 Alcohol dependence with withdrawal, uncomplicated (principal); F13.230 Sedative, hypnotic or anxiolytic dependence with withdrawal, uncomplicated; F11.20 Opioid dependence, uncomplicated; F14.20 Cocaine dependence, uncomplicated; F12.20 Cannabis dependence, uncomplicated; F17.210 Nicotine dependence, cigarettes, uncomplicated; F19.24 Other psychoactive substance dependence with psychoactive substance-induced mood disorder; F19.282 Other psychoactive substance dependence with psychoactive substance-induced sleep disorder; F31.89 Other bipolar disorder; I10 Essential (primary) hypertension; N30.00 Acute cystitis without hematuria; J45.909 Unspecified asthma, uncomplicated; Z91.011 Allergy to milk products; Z86.69 Personal history of other diseases of the nervous system and sense organs; Z91.5 Personal history of self-harm
CPT/HCPCS: 36415; 80053; 81025; 85027; 86593; 93005; 93010

== ENCOUNTER 2019-12-24 18:59 | Inpatient (IN) | payer OTHER ==
[2019-12-24 20:00] VITALS: BMI 38.6
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
[2019-12-25] MEDS ORDERED: MENTHOL/PHENOL 1 EACH UD MM PRN (01:12)
[2019-12-25] MEDS ORDERED: chlordiazePOXIDE HCL 25 MG CAPSULE PO PRN (01:12)
[2019-12-25] MEDS ORDERED: BISMUTH SUBSALICYLATE 524 MG/30 ML UD PO PRN (01:12)
[2019-12-25] MEDS ORDERED: MAGNESIUM HYDROX 2400MG/30ML ORAL SUSPENSION 30 ML CUP PO PRN (01:12)
[2019-12-25] MEDS ORDERED: ACETAMINOPHEN 325 MG TABLET (FP) PO PRN ×2 (01:12)
[2019-12-25] MEDS ORDERED: MAGNESIUM CITRATE 300 ML BOTTLE PO PRN (01:12)
[2019-12-25] MEDS ORDERED: NICOTINE POLACRILEX 2 MG GUM BUC PRN (01:12)
[2019-12-25] MEDS ORDERED: MAG HYDROX/AL HYDROX/SIMETH 30 ML UNIT-DOSE CUP PO PRN (01:12)
[2019-12-25] MEDS ORDERED: COLLOIDAL OATMEAL 1 BAR EACH TP PRN (02:42)
[2019-12-25] MEDS: CEPHALEXIN MONOHYDRATE 500 MG CAPSULE (UD) PO SCH ×4 (05:37→23:13)
[2019-12-25] MEDS: chlordiazePOXIDE HCL 25 MG CAPSULE PO SCH ×4 (05:37→22:08)
[2019-12-25] MEDS ORDERED: METHADONE HCL 40 MG DISPERSABLE TABLET PO ONE (06:00)
--- NOTE | 2019-12-25 09:21 | PN ---
S CIWA - CIWA Score Nausea/Vomitin-Mild Nausea/No Vomiting Muscle Tremors: 2 Anxiety: 3 Agitation: 1-Slight > Activity Paroxysmal Sweats: 2 Orientation: 0-Oriented Tacttile Disturbances: 0-None Auditory Disturbances: 0-None Visual Disturbances: 1-Very Mild Sensitivity Headache: 1-Very Mild CIWA-Ar Total Score: 11 S Progress Note (SOAP) Subjective: 29 years old female admitted on 12/24/19 for alcohol and benzo withdrawal sx management treating with librium detox regiment feeling ok today right hand "burn" gee noted bacitracin ointment to left dorsal of hand skin mild redness keep area clean and dry Objective: 12/25/19 09:32 Vital Signs Temperature 98.1 F 12/25/19 06:36 Pulse Rate 58 L 12/25/19 06:36 Respiratory Rate 16 12/25/19 06:36 Blood Pressure 99/63 12/25/19 06:36 O2 Sat by Pulse Oximetry (%) 12/25/19 09:32 lab pending requests HIV test last result two months ago negative discussed safe sex Assessment: 12/25/19 09:32 alcohol and benzo withdrawal Plan: librium regiment
[2019-12-25] MEDS ORDERED: cloNIDine HCL 0.1 MG TABLET PO SCH (10:00)
[2019-12-25] MEDS ORDERED: PATIENT'S OWN MEDICATION (NON-FORMULARY) (Clonidine Hcl [Clonidine Hcl] 0.2 MG) PO SCH (10:00)
[2019-12-25] MEDS: cloNIDine HCL 0.1 MG TABLET PO SCH ×3 (10:21→22:08)
[2019-12-25] MEDS: NICOTINE 21 MG/24 HOURS TOPICAL PATCH TD SCH (10:22)
[2019-12-25] MEDS: BACITRACIN 0.9 GM PACKET TP SCH ×4 (10:22→22:07)
[2019-12-25] MEDS: PRENATAL VITAMINS W/ FOLIC ACID TABLET (FP) PO SCH (10:22)
[2019-12-25 12:13] LABS: HEMATOCRIT 38.6 % (32.4-45.2); HEMOGLOBIN 12.9 GM/dL (10.7-15.3); MCH 28.7 pg (25.7-33.7); MCHC 33.4 g/dl (32.0-36.0); MEAN CELL VOLUME 85.8 fl (80-96); MEAN PLT VOLUME 8.6 fl (7.5-11.1); PLATELET COUNT 312 K/MM3 (134-434); RDW 15.1 % (11.6-15.6); WHITE BLOOD COUNT 8.8 K/mm3 (4.0-10.0)
[2019-12-25 12:18] LABS: ALBUMIN 3.2 g/dl (3.4-5.0); BILIRUBIN,TOTAL 0.3 mg/dL (0.2-1); BLOOD UREA NITROGEN 10.6 mg/dL (7-18); CALCIUM 8.7 mg/dL (8.5-10.1); CREATININE 0.8 mg/dL (0.55-1.3); TOT PROT 7.5 g/dl (6.4-8.2)
[2019-12-25] MEDS: GABAPENTIN 100 MG CAPSULE PO SCH ×2 (13:28→22:08)
--- NOTE | 2019-12-25 14:52 | EKG ---
Test Reason : Blood Pressure : / mmHG Vent. Rate : 073 BPM Atrial Rate : 073 BPM P-R Int : 130 ms QRS Dur : 096 ms QT Int : 410 ms P-R-T Axes : 039 050 013 degrees QTc Int : 451 ms NORMAL SINUS RHYTHM NONSPECIFIC T WAVE ABNORMALITY ABNORMAL ECG WHEN COMPARED WITH ECG OF 27-AUG-2019 10:38, NONSPECIFIC T WAVE ABNORMALITY NOW EVIDENT IN LATERAL LEADS Confirmed by MD MENDY, STERLING ([id number]) on 12/25/2019 2:52:32 PM Referred By: LAUREN REES Confirmed By:STERLING BROOKE MD
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
[2019-12-25] MEDS: THIAMINE HCL 100 MG TABLET (FP) PO SCH (22:08)
[2019-12-25] MEDS: MELATONIN 5 MG TABLETS PO PRN (22:10)
[2019-12-26] MEDS: BACITRACIN 0.9 GM PACKET TP SCH ×5 (06:12→22:20)
[2019-12-26] MEDS: GABAPENTIN 100 MG CAPSULE PO SCH ×3 (06:13→22:20)
[2019-12-26] MEDS: chlordiazePOXIDE HCL 25 MG CAPSULE PO SCH ×4 (06:13→22:19)
[2019-12-26] MEDS: CEPHALEXIN MONOHYDRATE 500 MG CAPSULE (UD) PO SCH ×4 (06:13→23:37)
[2019-12-26] MEDS: cloNIDine HCL 0.1 MG TABLET PO SCH ×2 (10:33→22:19)
[2019-12-26] MEDS: PRENATAL VITAMINS W/ FOLIC ACID TABLET (FP) PO SCH (10:36)
[2019-12-26] MEDS: NICOTINE 21 MG/24 HOURS TOPICAL PATCH TD SCH (10:38)
[2019-12-26] MEDS ORDERED: METHADONE HCL 40 MG DISPERSABLE TABLET PO ONE (11:30)
--- NOTE | 2019-12-26 15:20 | HP ---
CIWA Score Nausea/Vomitin-Mild Nausea/No Vomiting Muscle Tremors: 2 Anxiety: 3 Agitation: 1-Slight > Activity Paroxysmal Sweats: 2 Orientation: 0-Oriented Tacttile Disturbances: 0-None Auditory Disturbances: 0-None Visual Disturbances: 1-Very Mild Sensitivity Headache: 1-Very Mild CIWA-Ar Total Score: 11 - Admission Criteria OASAS Guidelines: Admission for Medically Managed Detox: Requires at least one of the followin. CIWA greater than 12 2. Seizures within the past 24 hours 3. Delirium tremens within the past 24 hours 4. Hallucinations within the past 24 hours 5. Acute intervention needed for co occurring medical disorder 6. Acute intervention needed for co occurring psychiatric disorder 7. Severe withdrawal that cannot be handled at a lower level of care (continued vomiting, continued diarrhea, abnormal vital signs) requiring intravenous medication and/or fluids 8. Admitting History and Physical - Past Medical History ...LMP: 12/06/18 ...: No - Smoking History Smoking history: Current every day smoker Have you smoked in the past 12 months: Yes Aproximately how many cigarettes per day: 20 - Alcohol/Substance Use Hx Alcohol Use: Yes Admission [facility] Allergies/Adverse Reactions: Allergies Allergy/AdvReac Type Severity Reaction Status Date / Time lactose Allergy Verified 12/24/19 19:42 No Known Drug Allergies Allergy Verified 12/24/19 19:42 - Ebola screening Have you traveled outside of the country in the last 21 days: No Have you had contact with anyone from an Ebola affected area: No Have you been sick,other than usual withdrawal symptoms: No Do you have a fever: No Patient History - Patient Medical History Hx Anemia: No Hx Asthma: Yes Hx Chronic Obstructive Pulmonary Disease (COPD): No Hx Cancer: No Hx Cardiac Disorders: No Hx Congestive Heart Failure: No Hx Hypertension: Yes Hx Hypercholesterolemia: No Hx Pacemaker: No HX Cerebrovascular Accident: No Hx Seizures: Yes (R/O alcohol April 2018) Hx Dementia: No Hx Diabetes: No Hx Gastrointestinal Disorders: No Hx Liver Disease: No Hx Genitourinary Disorders: No Hx Sexually Transmitted Disorders: No Hx Renal Disease (ESRD): No Hx Thyroid Disease: No Hx Human Immunodeficiency Virus (HIV): No (last tested April 2018, neg ) Hx Hepatitis C: Yes Hx Depression: Yes Hx Suicide Attempt: Yes (by cutting wrist in 2004 and 2014) Hx Schizophrenia: No - Patient Surgical History Past Surgical History: Yes Hx Neurologic Surgery: No Hx Cataract Extraction: No Hx Cardiac Surgery: No Hx Lung Surgery: No Hx Breast Surgery: No Hx Breast Biopsy: No Hx Abdominal Surgery: No Hx Appendectomy: No Hx Cholecystectomy: No Hx Genitourinary Surgery: No Hx Section: No Hx Orthopedic Surgery: No Other Surgical History: conization of cervix on 03/29/15 for abnormal pap smear, follow up with own - PPD History Previous Implant?: Yes Documented Results: Negative w/proof Implanted On Prior [facility] Admission?: Yes Date: 12/27/19 Results: 0mm - Reproductive History Last Menstrual Period: 12/06/18 Patient : No - Smoking Cessation Smoking history: Current every day smoker Have you smoked in the past 12 months: Yes Aproximately how many cigarettes per day: 20 Cigars Per Day: 0 Hx Chewing Tobacco Use: No Initiated information on smoking cessation: Yes - Substances abused Heroin Substance route: Injection Frequency: Daily Amount used: 1 bundle Age of first use: 22 Date of last use: 12/24/19 Cocaine Substance route: Injection Frequency: Daily Amount used: 1 gram Age of first use: 18 Date of last use: 12/24/19 Alcohol Substance route: Oral Frequency: Daily Amount used: 1 pint of vodka/whisky/ 4 22 ounces of beer. Age of first use: 14 Date of last use: 12/24/19 Alprazolam (Xanax) Substance route: Oral Frequency: 3-6 times per week Amount used: 4 mg Age of first use: 17 Date of last use: 12/22/19 Admission Physical Exam BHS - Vital Signs Vital Signs: Vital Signs - 24 hr 12/25/19 12/25/19 12/26/19 20:27 20:50 00:30 Temperature 97.7 F 97.7 F Pulse Rate 66 66 Respiratory 18 18 18 Rate Blood Pressure 118/86 124/76 12/26/19 12/26/19 12/26/19 03:30 07:06 08:40 Temperature 97.5 F L 96.8 F L Pulse Rate 56 L 69 Respiratory 16 18 16 Rate Blood Pressure 103/68 91/58 L 12/26/19 12/26/19 11:00 12:43 Temperature 97.3 F L Pulse Rate 72 70 Respiratory 20 20 Rate Blood Pressure 118/80 115/74 Breathalyzer - Breathalyzer Breathalyzer: 0.014 Urine Drug Screen - Test Device Lot number: [id number] Expiration date: 10/17/21 - Control Is test valid?: Yes - Results Drug screen NEGATIVE: No Urine drug screen results: MILTON-Cocaine, FEN-Fentanyl, MOP-Opiates, MTD-Methadone
--- NOTE | 2019-12-26 15:29 | PN ---
S CIWA - CIWA Score Nausea/Vomitin-Mild Nausea/No Vomiting Muscle Tremors: 2 Anxiety: 4-Mod. Anxious/Guarded Agitation: 1-Slight > Activity Paroxysmal Sweats: 2 Orientation: 0-Oriented Tacttile Disturbances: 0-None Auditory Disturbances: 0-None Visual Disturbances: 0-None Headache: 0-None Present CIWA-Ar Total Score: 10 BHS Progress Note (SOAP) Subjective: 29 years old female admitted on 12/24/19 for alcohol and benzo withdrawal sx management treating with librium detox regiment receiving methadone 120 mg po daily feeling ok today reports long history of fungal feet clotrimazole cream instruct to keep area clean and dry Objective: 12/26/19 15:28 Vital Signs Temperature 97.3 F L 12/26/19 12:43 Pulse Rate 70 12/26/19 12:43 Respiratory Rate 20 12/26/19 12:43 Blood Pressure 115/74 12/26/19 12:43 O2 Sat by Pulse Oximetry (%) Laboratory Last Values WBC 8.8 K/mm3 (4.0-10.0) 12/25/19 07:20 RBC 4.50 M/mm3 (3.60-5.2) 12/25/19 07:20 Hgb 12.9 GM/dL (10.7-15.3) 12/25/19 07:20 Hct 38.6 % (32.4-45.2) 12/25/19 07:20 MCV 85.8 fl (80-96) 12/25/19 07:20 MCH 28.7 pg (25.7-33.7) 12/25/19 07:20 MCHC 33.4 g/dl (32.0-36.0) 12/25/19 07:20 RDW 15.1 % (11.6-15.6) D 12/25/19 07:20 Plt Count 312 K/MM3 (134-434) D 12/25/19 07:20 MPV 8.6 fl (7.5-11.1) 12/25/19 07:20 Sodium 139 mmol/L (136-145) 12/25/19 07:20 Potassium 4.0 mmol/L (3.5-5.1) 12/25/19 07:20 Chloride 108 mmol/L (98-107) H 12/25/19 07:20 Carbon Dioxide 24 mmol/L (21-32) 12/25/19 07:20 Anion Gap 7 MMOL/L (8-16) L 12/25/19 07:20 BUN 10.6 mg/dL (7-18) 12/25/19 07:20 Creatinine 0.8 mg/dL (0.55-1.3) 12/25/19 07:20 Est GFR (CKD-EPI)AfAm 116.28 12/25/19 07:20 Est GFR (CKD-EPI)NonAf 100.33 12/25/19 07:20 Random Glucose 115 mg/dL (74-106) H 12/25/19 07:20 Calcium 8.7 mg/dL (8.5-10.1) 12/25/19 07:20 Total Bilirubin 0.3 mg/dL (0.2-1) 12/25/19 07:20 AST 18 U/L (15-37) 12/25/19 07:20 ALT 32 U/L (13-61) 12/25/19 07:20 Alkaline Phosphatase 71 U/L (45-117) 12/25/19 07:20 Total Protein 7.5 g/dl (6.4-8.2) 12/25/19 07:20 Albumin 3.2 g/dl (3.4-5.0) L 12/25/19 07:20 POC Urine HCG, Qual Negative 12/24/19 20:24 RPR Titer Nonreactive (NONREACTIVE) 12/25/19 07:20 HIV 1&2 Antibody Screen Negative 12/26/19 07:30 HIV P24 Antigen Negative 12/26/19 07:30 lab noted Assessment: 12/26/19 15:28 alcohol and benzo withdrawal Plan: librium regiment
[2019-12-26] MEDS: CLOTRIMAZOLE 1% CREAM 15 GM TUBE TP SCH ×2 (19:11→22:19)
[2019-12-26] MEDS: traZODone HCL 50 MG TABLET (FP) PO PRN (22:18)
[2019-12-26] MEDS: THIAMINE HCL 100 MG TABLET (FP) PO SCH (22:19)
[2019-12-27] MEDS ORDERED: chlordiazePOXIDE HCL 10 MG CAPSULE PO PRN
[2019-12-27] MEDS: GABAPENTIN 100 MG CAPSULE PO SCH ×3 (05:14→22:10)
[2019-12-27] MEDS: chlordiazePOXIDE HCL 10 MG CAPSULE PO SCH ×4 (05:14→22:10)
[2019-12-27] MEDS: METHADONE HCL 40 MG DISPERSABLE TABLET PO SCH (05:14)
[2019-12-27] MEDS: CEPHALEXIN MONOHYDRATE 500 MG CAPSULE (UD) PO SCH ×4 (05:14→23:00)
[2019-12-27] MEDS: BACITRACIN 0.9 GM PACKET TP SCH ×5 (06:26→22:11)
[2019-12-27 09:46] LABS: PH,URINE 7.5 (5.0-8.0); URINE APPEARANCE CLEAR; URINE BILIRUBIN NEGATIVE (NEGATIVE); URINE COLOR YELLOW; URINE GLUCOSE (UA) NEGATIVE (NEGATIVE); URINE KETONE NEGATIVE (NEGATIVE); URINE LEUK ESTERASE NEGATIVE (NEGATIVE); URINE NITRITE NEGATIVE (NEGATIVE); URINE PROTEIN NEGATIVE (NEGATIVE)
[2019-12-27] MEDS: CLOTRIMAZOLE 1% CREAM 15 GM TUBE TP SCH ×4 (10:05→22:12)
[2019-12-27] MEDS: PRENATAL VITAMINS W/ FOLIC ACID TABLET (FP) PO SCH (10:06)
[2019-12-27] MEDS: cloNIDine HCL 0.1 MG TABLET PO SCH ×2 (10:06→22:13)
[2019-12-27] MEDS: NICOTINE 21 MG/24 HOURS TOPICAL PATCH TD SCH (10:08)
--- NOTE | 2019-12-27 13:33 | PN ---
S CIWA - CIWA Score Nausea/Vomitin-No Nausea/No Vomiting Muscle Tremors: 2 Anxiety: 3 Agitation: 1-Slight > Activity Paroxysmal Sweats: 1-Minimal Palms Moist Orientation: 0-Oriented Tacttile Disturbances: 0-None Auditory Disturbances: 0-None Visual Disturbances: 0-None Headache: 0-None Present CIWA-Ar Total Score: 7 S Progress Note (SOAP) Subjective: 29 years old female admitted on 12/24/19 for alcohol and benzo withdrawal sx management treating with librium detox regiment reports has long history of anxiety and feeling anxious now vistaril 50 mg po x 1 Objective: 12/27/19 13:38 Vital Signs Temperature 97.1 F L 12/27/19 12:50 Pulse Rate 68 12/27/19 12:50 Respiratory Rate 18 12/27/19 12:50 Blood Pressure 105/70 12/27/19 12:50 O2 Sat by Pulse Oximetry (%) Laboratory Last Values WBC 8.8 K/mm3 (4.0-10.0) 12/25/19 07:20 RBC 4.50 M/mm3 (3.60-5.2) 12/25/19 07:20 Hgb 12.9 GM/dL (10.7-15.3) 12/25/19 07:20 Hct 38.6 % (32.4-45.2) 12/25/19 07:20 MCV 85.8 fl (80-96) 12/25/19 07:20 MCH 28.7 pg (25.7-33.7) 12/25/19 07:20 MCHC 33.4 g/dl (32.0-36.0) 12/25/19 07:20 RDW 15.1 % (11.6-15.6) D 12/25/19 07:20 Plt Count 312 K/MM3 (134-434) D 12/25/19 07:20 MPV 8.6 fl (7.5-11.1) 12/25/19 07:20 Sodium 139 mmol/L (136-145) 12/25/19 07:20 Potassium 4.0 mmol/L (3.5-5.1) 12/25/19 07:20 Chloride 108 mmol/L (98-107) H 12/25/19 07:20 Carbon Dioxide 24 mmol/L (21-32) 12/25/19 07:20 Anion Gap 7 MMOL/L (8-16) L 12/25/19 07:20 BUN 10.6 mg/dL (7-18) 12/25/19 07:20 Creatinine 0.8 mg/dL (0.55-1.3) 12/25/19 07:20 Est GFR (CKD-EPI)AfAm 116.28 12/25/19 07:20 Est GFR (CKD-EPI)NonAf 100.33 12/25/19 07:20 Random Glucose 115 mg/dL (74-106) H 12/25/19 07:20 Calcium 8.7 mg/dL (8.5-10.1) 12/25/19 07:20 Total Bilirubin 0.3 mg/dL (0.2-1) 12/25/19 07:20 AST 18 U/L (15-37) 12/25/19 07:20 ALT 32 U/L (13-61) 12/25/19 07:20 Alkaline Phosphatase 71 U/L (45-117) 12/25/19 07:20 Total Protein 7.5 g/dl (6.4-8.2) 12/25/19 07:20 Albumin 3.2 g/dl (3.4-5.0) L 12/25/19 07:20 Urine Color Yellow 12/27/19 07:30 Urine Appearance Clear 12/27/19 07:30 Urine pH 7.5 (5.0-8.0) 12/27/19 07:30 Ur Specific [place] 1.015 (1.010-1.035) 12/27/19 07:30 Urine Protein Negative (NEGATIVE) 12/27/19 07:30 Urine Glucose (UA) Negative (NEGATIVE) 12/27/19 07:30 Urine Ketones Negative (NEGATIVE) 12/27/19 07:30 Urine Blood Negative (NEGATIVE) 12/27/19 07:30 Urine Nitrite Negative (NEGATIVE) 12/27/19 07:30 Urine Bilirubin Negative (NEGATIVE) 12/27/19 07:30 Urine Urobilinogen 1.0 mg/dL (0.2-1.0) 12/27/19 07:30 Ur Leukocyte Esterase Negative (NEGATIVE) 12/27/19 07:30 POC Urine HCG, Qual Negative 12/24/19 20:24 RPR Titer Nonreactive (NONREACTIVE) 12/25/19 07:20 HIV 1&2 Antibody Screen Negative 12/26/19 07:30 HIV P24 Antigen Negative 12/26/19 07:30 lab noted Assessment: 12/27/19 13:38 alcohol and benzo withdrawal 12/27/19 13:39 anxiety Plan: librium regiment vistaril
[2019-12-27] MEDS ORDERED: hydrOXYzine PAMOATE 50 MG CAPSULE (FP) PO ONE (14:00)
[2019-12-27] MEDS: IBUPROFEN 400 MG TABLET (FP) PO PRN (15:41)
[2019-12-27] MEDS: THIAMINE HCL 100 MG TABLET (FP) PO SCH (22:10)
[2019-12-27] MEDS: traZODone HCL 50 MG TABLET (FP) PO PRN (22:10)
[2019-12-27] MEDS: MELATONIN 5 MG TABLETS PO PRN (22:12)
[2019-12-28] MEDS: BACITRACIN 0.9 GM PACKET TP SCH ×5 (02:15→22:15)
[2019-12-28] MEDS: METHADONE HCL 40 MG DISPERSABLE TABLET PO SCH (05:23)
[2019-12-28] MEDS: chlordiazePOXIDE HCL 10 MG CAPSULE PO SCH ×2 (05:24→17:23)
[2019-12-28] MEDS: CEPHALEXIN MONOHYDRATE 500 MG CAPSULE (UD) PO SCH ×4 (05:24→23:43)
[2019-12-28] MEDS: GABAPENTIN 100 MG CAPSULE PO SCH ×3 (05:24→22:13)
[2019-12-28] MEDS: CLOTRIMAZOLE 1% CREAM 15 GM TUBE TP SCH ×4 (09:56→22:15)
[2019-12-28] MEDS: cloNIDine HCL 0.1 MG TABLET PO SCH ×2 (09:56→23:01)
[2019-12-28] MEDS: PRENATAL VITAMINS W/ FOLIC ACID TABLET (FP) PO SCH (09:56)
[2019-12-28] MEDS: NICOTINE 21 MG/24 HOURS TOPICAL PATCH TD SCH (09:57)
--- NOTE | 2019-12-28 13:28 | PN ---
[facility] CIWA - CIWA Score Nausea/Vomitin-No Nausea/No Vomiting Muscle Tremors: 1-None Visible, but [place] Anxiety: 2 Agitation: 0-Normal Activity Paroxysmal Sweats: 1-Minimal Palms Moist Orientation: 0-Oriented Tacttile Disturbances: 0-None Auditory Disturbances: 0-None Visual Disturbances: 0-None Headache: 0-None Present CIWA-Ar Total Score: 4 S Progress Note (SOAP) Subjective: 29 years old female admitted on 12/24/19 for alcohol and benzo withdrawal sx management treating with librium detox regiment feeling better today less anxious mild tremor sleep better at night patient attends behavior and psychosocial therapies groups and meetings while in detox Mrs Salinas determines to maintain sober discussed aftercare with staff Objective: 12/28/19 13:30 Vital Signs Temperature 97.9 F 12/28/19 12:46 Pulse Rate 68 12/28/19 12:46 Respiratory Rate 18 12/28/19 12:46 Blood Pressure 100/60 12/28/19 12:46 O2 Sat by Pulse Oximetry (%) Laboratory Last Values WBC 8.8 K/mm3 (4.0-10.0) 12/25/19 07:20 RBC 4.50 M/mm3 (3.60-5.2) 12/25/19 07:20 Hgb 12.9 GM/dL (10.7-15.3) 12/25/19 07:20 Hct 38.6 % (32.4-45.2) 12/25/19 07:20 MCV 85.8 fl (80-96) 12/25/19 07:20 MCH 28.7 pg (25.7-33.7) 12/25/19 07:20 MCHC 33.4 g/dl (32.0-36.0) 12/25/19 07:20 RDW 15.1 % (11.6-15.6) D 12/25/19 07:20 Plt Count 312 K/MM3 (134-434) D 12/25/19 07:20 MPV 8.6 fl (7.5-11.1) 12/25/19 07:20 Sodium 139 mmol/L (136-145) 12/25/19 07:20 Potassium 4.0 mmol/L (3.5-5.1) 12/25/19 07:20 Chloride 108 mmol/L (98-107) H 12/25/19 07:20 Carbon Dioxide 24 mmol/L (21-32) 12/25/19 07:20 Anion Gap 7 MMOL/L (8-16) L 12/25/19 07:20 BUN 10.6 mg/dL (7-18) 12/25/19 07:20 Creatinine 0.8 mg/dL (0.55-1.3) 12/25/19 07:20 Est GFR (CKD-EPI)AfAm 116.28 12/25/19 07:20 Est GFR (CKD-EPI)NonAf 100.33 12/25/19 07:20 Random Glucose 115 mg/dL (74-106) H 12/25/19 07:20 Calcium 8.7 mg/dL (8.5-10.1) 12/25/19 07:20 Total Bilirubin 0.3 mg/dL (0.2-1) 12/25/19 07:20 AST 18 U/L (15-37) 12/25/19 07:20 ALT 32 U/L (13-61) 12/25/19 07:20 Alkaline Phosphatase 71 U/L (45-117) 12/25/19 07:20 Total Protein 7.5 g/dl (6.4-8.2) 12/25/19 07:20 Albumin 3.2 g/dl (3.4-5.0) L 12/25/19 07:20 Urine Color Yellow 12/27/19 07:30 Urine Appearance Clear 12/27/19 07:30 Urine pH 7.5 (5.0-8.0) 12/27/19 07:30 Ur Specific [place] 1.015 (1.010-1.035) 12/27/19 07:30 Urine Protein Negative (NEGATIVE) 12/27/19 07:30 Urine Glucose (UA) Negative (NEGATIVE) 12/27/19 07:30 Urine Ketones Negative (NEGATIVE) 12/27/19 07:30 Urine Blood Negative (NEGATIVE) 12/27/19 07:30 Urine Nitrite Negative (NEGATIVE) 12/27/19 07:30 Urine Bilirubin Negative (NEGATIVE) 12/27/19 07:30 Urine Urobilinogen 1.0 mg/dL (0.2-1.0) 12/27/19 07:30 Ur Leukocyte Esterase Negative (NEGATIVE) 12/27/19 07:30 POC Urine HCG, Qual Negative 12/24/19 20:24 RPR Titer Nonreactive (NONREACTIVE) 12/25/19 07:20 HIV 1&2 Antibody Screen Negative 12/26/19 07:30 HIV P24 Antigen Negative 12/26/19 07:30 lab noted Assessment: 12/28/19 13:30 alcohol and benzo withdrawal Plan: librium regiment
[2019-12-28] MEDS: IBUPROFEN 400 MG TABLET (FP) PO PRN (22:13)
[2019-12-28] MEDS: traZODone HCL 50 MG TABLET (FP) PO PRN (22:13)
[2019-12-28] MEDS: THIAMINE HCL 100 MG TABLET (FP) PO SCH (22:13)
[2019-12-29] MEDS: BACITRACIN 0.9 GM PACKET TP SCH ×3 (01:58→09:39)
[2019-12-29] MEDS ORDERED: chlordiazePOXIDE HCL 10 MG CAPSULE PO ONE (05:00)
[2019-12-29] MEDS: GABAPENTIN 100 MG CAPSULE PO SCH (05:45)
[2019-12-29] MEDS: METHADONE HCL 40 MG DISPERSABLE TABLET PO SCH (05:45)
[2019-12-29] MEDS: CEPHALEXIN MONOHYDRATE 500 MG CAPSULE (UD) PO SCH (05:45)
[2019-12-29 07:05] VITALS: BP 109/71; PULSE 63; TEMP 98
[2019-12-29] MEDS: CLOTRIMAZOLE 1% CREAM 15 GM TUBE TP SCH (09:39)
[2019-12-29] MEDS: PRENATAL VITAMINS W/ FOLIC ACID TABLET (FP) PO SCH (09:39)
[2019-12-29] MEDS: NICOTINE 21 MG/24 HOURS TOPICAL PATCH TD SCH (09:39)
[2019-12-29] MEDS: cloNIDine HCL 0.1 MG TABLET PO SCH (09:39)
--- NOTE | 2019-12-29 13:57 | DS ---
[facility] Detox Discharge Summary Admission Date: 12/24/19 Discharge Date: 12/29/19 - History Present History: Alcohol Dependence, Sedative Dependence Additional Comments: 29 years old female admitted on 12/24/19 for alcohol and benzo withdrawal sx management treated with librium detox regiment patient has completed the librium regiment and tolerated well seen by psychiatrist brisa trazadoncatalina patient is alert oriented x 3 cardiac s1s2 regular rate rhythm respiratory clear lungs bilaterally on auscultation extremities full range of motion Pertinent Past History: time for discharge: 27 minutes - Physical Exam Results Vital Signs: Vital Signs Temperature 98 F 12/29/19 07:05 Pulse Rate 63 12/29/19 07:05 Respiratory Rate 18 12/29/19 07:05 Blood Pressure 109/71 12/29/19 07:05 O2 Sat by Pulse Oximetry (%) Pertinent Admission Physical Exam Findings: alcohol and benzo withdrawal Laboratory Last Values WBC 8.8 K/mm3 (4.0-10.0) 12/25/19 07:20 RBC 4.50 M/mm3 (3.60-5.2) 12/25/19 07:20 Hgb 12.9 GM/dL (10.7-15.3) 12/25/19 07:20 Hct 38.6 % (32.4-45.2) 12/25/19 07:20 MCV 85.8 fl (80-96) 12/25/19 07:20 MCH 28.7 pg (25.7-33.7) 12/25/19 07:20 MCHC 33.4 g/dl (32.0-36.0) 12/25/19 07:20 RDW 15.1 % (11.6-15.6) D 12/25/19 07:20 Plt Count 312 K/MM3 (134-434) D 12/25/19 07:20 MPV 8.6 fl (7.5-11.1) 12/25/19 07:20 Sodium 139 mmol/L (136-145) 12/25/19 07:20 Potassium 4.0 mmol/L (3.5-5.1) 12/25/19 07:20 Chloride 108 mmol/L (98-107) H 12/25/19 07:20 Carbon Dioxide 24 mmol/L (21-32) 12/25/19 07:20 Anion Gap 7 MMOL/L (8-16) L 12/25/19 07:20 BUN 10.6 mg/dL (7-18) 12/25/19 07:20 Creatinine 0.8 mg/dL (0.55-1.3) 12/25/19 07:20 Est GFR (CKD-EPI)AfAm 116.28 12/25/19 07:20 Est GFR (CKD-EPI)NonAf 100.33 12/25/19 07:20 Random Glucose 115 mg/dL (74-106) H 12/25/19 07:20 Calcium 8.7 mg/dL (8.5-10.1) 12/25/19 07:20 Total Bilirubin 0.3 mg/dL (0.2-1) 12/25/19 07:20 AST 18 U/L (15-37) 12/25/19 07:20 ALT 32 U/L (13-61) 12/25/19 07:20 Alkaline Phosphatase 71 U/L (45-117) 12/25/19 07:20 Total Protein 7.5 g/dl (6.4-8.2) 12/25/19 07:20 Albumin 3.2 g/dl (3.4-5.0) L 12/25/19 07:20 Urine Color Yellow 12/27/19 07:30 Urine Appearance Clear 12/27/19 07:30 Urine pH 7.5 (5.0-8.0) 12/27/19 07:30 Ur Specific [place] 1.015 (1.010-1.035) 12/27/19 07:30 Urine Protein Negative (NEGATIVE) 12/27/19 07:30 Urine Glucose (UA) Negative (NEGATIVE) 12/27/19 07:30 Urine Ketones Negative (NEGATIVE) 12/27/19 07:30 Urine Blood Negative (NEGATIVE) 12/27/19 07:30 Urine Nitrite Negative (NEGATIVE) 12/27/19 07:30 Urine Bilirubin Negative (NEGATIVE) 12/27/19 07:30 Urine Urobilinogen 1.0 mg/dL (0.2-1.0) 12/27/19 07:30 Ur Leukocyte Esterase Negative (NEGATIVE) 12/27/19 07:30 POC Urine HCG, Qual Negative 12/24/19 20:24 RPR Titer Nonreactive (NONREACTIVE) 12/25/19 07:20 HIV 1&2 Antibody Screen Negative 12/26/19 07:30 HIV P24 Antigen Negative 12/26/19 07:30 lab noted - Treatment Hospital Course: Detox Protocol Followed, Detoxed Safely, Responded well, Discharged Condition Good, Rehab Referral Accepted Patient has Accepted a Rehab Referral to: [facility] - Medication Discharge Medications: Ambulatory Orders Gabapentin 600 mg PO TID 08/06/18 Escitalopram Oxalate [Lexapro -] 10 mg PO DAILY 08/26/19 levETIRAcetam [Keppra -] 1,000 mg PO BID #30 tablet 08/30/19 traZODone HCL [Trazodone HCl] 50 mg PO HS #30 tablet 08/30/19 Clonidine HCl 0.2 mg PO BID 12/24/19 - Diagnosis (1) Sedative, hypnotic or anxiolytic dependence with withdrawal, uncomplicated Status: Acute (2) Substance induced mood disorder Status: Suspected (3) Asthma Status: Chronic Qualifiers: Asthma severity: mild Asthma persistence: unspecified (4) Essential (primary) hypertension Status: Chronic (5) Nicotine dependence Status: Acute Qualifiers: Nicotine product type: cigarettes Substance use status: in withdrawal Qualified Code(s): F17.213 - Nicotine dependence, cigarettes, with withdrawal (6) Obesity (BMI 30-39.9) Status: Chronic - AMA Did Patient Leave Against Medical Advice: No CIWA Score - CIWA Score Nausea/Vomitin-No Nausea/No Vomiting Muscle Tremors: 1-None Visible, but [place] Anxiety: 1-Mildly Anxious Agitation: 0-Normal Activity Paroxysmal Sweats: No Perspiration Orientation: 0-Oriented Tacttile Disturbances: 0-None Auditory Disturbances: 0-None Visual Disturbances: 0-None Headache: 0-None Present CIWA-Ar Total Score: 2
== END 2019-12-29 09:15 | disposition home or self-care (01) | DRG 773 ==
LOC: YASAS 18:59 → Y3N 22:39
PROVIDERS: ADMIT Allergy & Immunology; ATTEND Allergy & Immunology
PROC: HZ2ZZZZ Detoxification Services for Substance Abuse Treatment (ICD-10-PCS; principal; 2019-12-24)
DX: F13.230 Sedative, hypnotic or anxiolytic dependence with withdrawal, uncomplicated (principal); F11.20 Opioid dependence, uncomplicated; F14.20 Cocaine dependence, uncomplicated; F17.213 Nicotine dependence, cigarettes, with withdrawal; F19.24 Other psychoactive substance dependence with psychoactive substance-induced mood disorder; F41.9 Anxiety disorder, unspecified; F32.9 Major depressive disorder, single episode, unspecified; I10 Essential (primary) hypertension; J45.909 Unspecified asthma, uncomplicated; R01.1 Cardiac murmur, unspecified; G62.9 Polyneuropathy, unspecified; R25.1 Tremor, unspecified; H55.00 Unspecified nystagmus; L03.90 Cellulitis, unspecified; E66.9 Obesity, unspecified; Z68.38 Body mass index [BMI] 38.0-38.9, adult; Z86.69 Personal history of other diseases of the nervous system and sense organs; Z91.011 Allergy to milk products; Z56.0 Unemployment, unspecified; Z91.5 Personal history of self-harm
CPT/HCPCS: 36415; 80053; 81003; 81025; 85027; 86593; 87389; 93005; 93010; J0735

== ENCOUNTER 2021-01-25 14:28 | Inpatient (IN) | payer OTHER ==
[2021-01-25 16:11] VITALS: BMI 42.7
[2021-01-25] MEDS ORDERED: MAGNESIUM HYDROX 2400MG/30ML ORAL SUSPENSION 30 ML CUP PO PRN (18:57)
[2021-01-25] MEDS ORDERED: NICOTINE POLACRILEX 2 MG GUM BUC PRN (18:57)
[2021-01-25] MEDS ORDERED: BISMUTH SUBSALICYLATE 524 MG/30 ML UD PO PRN (18:57)
[2021-01-25] MEDS ORDERED: MENTHOL/PHENOL 1 EACH UD MM PRN (18:57)
[2021-01-25] MEDS ORDERED: chlordiazePOXIDE HCL 25 MG CAPSULE PO PRN (18:57)
[2021-01-25] MEDS ORDERED: MAGNESIUM CITRATE 300 ML BOTTLE PO PRN (18:57)
[2021-01-25] MEDS ORDERED: ACETAMINOPHEN 325 MG TABLET (FP) PO PRN ×2 (18:57)
[2021-01-25] MEDS ORDERED: ONDANSETRON *ODT* 4 MG TABLET SL PRN (18:57)
[2021-01-25] MEDS ORDERED: MAG HYDROX/AL HYDROX/SIMETH 30 ML UNIT-DOSE CUP PO PRN (18:57)
[2021-01-25] MEDS ORDERED: PATIENT'S OWN MEDICATION (NON-FORMULARY) (Clonidine Hcl [Clonidine Hcl] 0.2 MG Tablet) PO SCH (22:00)
[2021-01-25] MEDS: MELATONIN 5 MG TABLETS PO SCH (22:34)
[2021-01-25] MEDS: chlordiazePOXIDE HCL 25 MG CAPSULE PO SCH (22:34)
[2021-01-25] MEDS: hydrOXYzine PAMOATE 25 MG CAPSULE (FP) PO SCH (22:34)
[2021-01-25] MEDS: THIAMINE HCL 100 MG TABLET (FP) PO SCH (22:34)
[2021-01-25] MEDS: cloNIDine HCL 0.1 MG TABLET PO SCH (22:34)
[2021-01-26] MEDS: chlordiazePOXIDE HCL 25 MG CAPSULE PO SCH ×4 (05:45→22:19)
[2021-01-26] MEDS: hydrOXYzine PAMOATE 25 MG CAPSULE (FP) PO SCH ×5 (05:45→22:17)
[2021-01-26] MEDS ORDERED: METHADONE HCL 40 MG DISPERSABLE TABLET PO SCH (10:00)
[2021-01-26 10:27] LABS: POTASSIUM 4.3 mmol/L (3.5-5.1)
[2021-01-26 10:29] LABS: CALCIUM 8.8 mg/dL (8.5-10.1); HEMATOCRIT 38.8 % (32.4-45.2); MCH 28.4 pg (25.7-33.7); MCHC 33.7 g/dl (32.0-36.0); MEAN CELL VOLUME 84.4 fl (80-96); MEAN PLT VOLUME 8.4 fl (7.5-11.1); PLATELET COUNT 298 K/MM3 (134-434); RBC 4.59 M/mm3 (3.60-5.2); RDW 15.5 % (11.6-15.6); WHITE BLOOD COUNT 8.1 K/mm3 (4.0-10.0)
[2021-01-26 10:30] LABS: BLOOD UREA NITROGEN 13.8 mg/dL (7-18)
[2021-01-26 10:33] LABS: ALBUMIN 3.5 g/dl (3.4-5.0); CREATININE 0.8 mg/dL (0.55-1.3)
[2021-01-26 10:34] LABS: BILIRUBIN,TOTAL 0.2 mg/dL (0.2-1)
[2021-01-26] MEDS: PRENATAL VITAMINS W/ FOLIC ACID TABLET (FP) PO SCH (10:38)
[2021-01-26] MEDS: cloNIDine HCL 0.1 MG TABLET PO SCH ×2 (10:39→22:17)
[2021-01-26] MEDS: NICOTINE 14 MG/24 HOURS TOPICAL PATCH TD SCH (10:40)
[2021-01-26] MEDS ORDERED: METHADONE HCL 10 MG TABLET ONE (11:20)
[2021-01-26] MEDS ORDERED: METHADONE HCL 40 MG DISPERSABLE TABLET ONE (11:21)
[2021-01-26 11:24] LABS: HIV INTERPRETATION NEGATIVE (NEGATIVE)
[2021-01-26] MEDS: METHADONE 120 MG, METHADONE 10 MG PO SCH (11:24)
[2021-01-26] MEDS: GABAPENTIN 100 MG CAPSULE PO SCH (22:17)
[2021-01-26] MEDS: MELATONIN 5 MG TABLETS PO SCH (22:17)
[2021-01-26] MEDS: traZODone HCL 50 MG TABLET (FP) PO SCH (22:17)
[2021-01-26] MEDS: THIAMINE HCL 100 MG TABLET (FP) PO SCH (22:17)
[2021-01-27] MEDS ORDERED: METHADONE HCL 10 MG TABLET ONE (04:15)
[2021-01-27] MEDS ORDERED: METHADONE HCL 40 MG DISPERSABLE TABLET ONE (04:15)
[2021-01-27] MEDS: METHADONE 120 MG, METHADONE 10 MG PO SCH (05:31)
[2021-01-27] MEDS: hydrOXYzine PAMOATE 25 MG CAPSULE (FP) PO SCH ×5 (05:33→23:06)
[2021-01-27] MEDS: chlordiazePOXIDE HCL 25 MG CAPSULE PO SCH ×4 (05:33→23:05)
[2021-01-27] MEDS: GABAPENTIN 100 MG CAPSULE PO SCH ×3 (05:35→23:04)
[2021-01-27] MEDS: cloNIDine HCL 0.1 MG TABLET PO SCH ×2 (10:19→23:07)
[2021-01-27] MEDS: PRENATAL VITAMINS W/ FOLIC ACID TABLET (FP) PO SCH (10:20)
[2021-01-27] MEDS: SERTRALINE HCL 50 MG TABLET (FP) PO SCH (10:20)
[2021-01-27] MEDS: NICOTINE 14 MG/24 HOURS TOPICAL PATCH TD SCH (10:21)
[2021-01-27] MEDS ORDERED: COLLOIDAL OATMEAL 1 BAR EACH TP PRN (11:00)
[2021-01-27] MEDS: valACYclovir HCL 500 MG TABLET (FP) PO SCH ×2 (12:00→23:05)
[2021-01-27] MEDS: CLOTRIMAZOLE 1% CREAM 15 GM TUBE TP SCH (23:02)
[2021-01-27] MEDS: MELATONIN 5 MG TABLETS PO SCH (23:04)
[2021-01-27] MEDS: THIAMINE HCL 100 MG TABLET (FP) PO SCH (23:05)
[2021-01-27] MEDS: traZODone HCL 50 MG TABLET (FP) PO SCH (23:05)
[2021-01-28] MEDS ORDERED: chlordiazePOXIDE HCL 10 MG CAPSULE PO PRN
[2021-01-28] MEDS ORDERED: METHADONE HCL 10 MG TABLET ONE (04:45)
[2021-01-28] MEDS ORDERED: METHADONE HCL 40 MG DISPERSABLE TABLET ONE (04:45)
[2021-01-28] MEDS: hydrOXYzine PAMOATE 25 MG CAPSULE (FP) PO SCH ×5 (06:00→22:35)
[2021-01-28] MEDS: METHADONE 120 MG, METHADONE 10 MG PO SCH (06:00)
[2021-01-28] MEDS: chlordiazePOXIDE HCL 10 MG CAPSULE PO SCH ×4 (06:00→22:30)
[2021-01-28] MEDS: GABAPENTIN 100 MG CAPSULE PO SCH ×3 (06:00→22:31)
[2021-01-28] MEDS: cloNIDine HCL 0.1 MG TABLET PO SCH ×2 (10:34→22:31)
[2021-01-28] MEDS: PRENATAL VITAMINS W/ FOLIC ACID TABLET (FP) PO SCH (10:34)
[2021-01-28] MEDS: valACYclovir HCL 500 MG TABLET (FP) PO SCH ×2 (10:34→22:35)
[2021-01-28] MEDS: SERTRALINE HCL 50 MG TABLET (FP) PO SCH (10:35)
[2021-01-28] MEDS: IBUPROFEN 400 MG TABLET (FP) PO PRN (10:40)
[2021-01-28] MEDS: NICOTINE 14 MG/24 HOURS TOPICAL PATCH TD SCH (10:40)
[2021-01-28] MEDS: CLOTRIMAZOLE 1% CREAM 15 GM TUBE TP SCH ×2 (12:37→22:33)
[2021-01-28] MEDS: AMMONIUM LACTATE 12% LOTION 225 GM BOTTLE TP PRN (12:37)
[2021-01-28 22:21] LABS: EPI CELLS >36 /uL (0-25.1); HYALINE CASTS 11 /uL (0-3.1); URINE APPEARANCE CLOUDY; URINE BACTERIA 4006 /uL (0-1359); URINE BILIRUBIN NEGATIVE (NEGATIVE); URINE COLOR YELLOW; URINE GLUCOSE (UA) NEGATIVE (NEGATIVE); URINE KETONE TRACE (NEGATIVE); URINE LEUK ESTERASE 2+ (NEGATIVE); URINE NITRITE NEGATIVE (NEGATIVE); URINE PROTEIN NEGATIVE (NEGATIVE); URINE RBC 38 /uL (0-23.9); URINE UROBILINOGEN 0.2 mg/dL (0.2-1.0); URINE WBC 365 /uL (0-25.8)
[2021-01-28] MEDS: MELATONIN 5 MG TABLETS PO SCH (22:29)
[2021-01-28] MEDS: THIAMINE HCL 100 MG TABLET (FP) PO SCH (22:30)
[2021-01-28] MEDS: METHOCARBAMOL 500 MG TABLET PO PRN (22:31)
[2021-01-28] MEDS: traZODone HCL 50 MG TABLET (FP) PO SCH (22:31)
[2021-01-29] MEDS ORDERED: METHADONE HCL 10 MG TABLET ONE (04:06)
[2021-01-29] MEDS ORDERED: METHADONE HCL 40 MG DISPERSABLE TABLET ONE (04:07)
[2021-01-29] MEDS: GABAPENTIN 100 MG CAPSULE PO SCH ×3 (05:38→22:23)
[2021-01-29] MEDS: METHADONE 120 MG, METHADONE 10 MG PO SCH (05:38)
[2021-01-29] MEDS: chlordiazePOXIDE HCL 10 MG CAPSULE PO SCH ×2 (05:38→17:35)
[2021-01-29] MEDS: hydrOXYzine PAMOATE 25 MG CAPSULE (FP) PO SCH ×2 (06:17→10:24)
[2021-01-29] MEDS: PRENATAL VITAMINS W/ FOLIC ACID TABLET (FP) PO SCH (10:23)
[2021-01-29] MEDS: CLOTRIMAZOLE 1% CREAM 15 GM TUBE TP SCH ×2 (10:23→22:24)
[2021-01-29] MEDS: METHOCARBAMOL 500 MG TABLET PO PRN ×2 (10:23→17:36)
[2021-01-29] MEDS: SERTRALINE HCL 50 MG TABLET (FP) PO SCH (10:24)
[2021-01-29] MEDS: cloNIDine HCL 0.1 MG TABLET PO SCH ×2 (10:24→22:25)
[2021-01-29] MEDS: valACYclovir HCL 500 MG TABLET (FP) PO SCH ×2 (10:24→22:23)
[2021-01-29] MEDS: NICOTINE 14 MG/24 HOURS TOPICAL PATCH TD SCH (10:25)
[2021-01-29] MEDS: hydrOXYzine PAMOATE 25 MG CAPSULE (FP) PO PRN ×2 (12:04→22:23)
[2021-01-29] MEDS: NITROFURANTOIN MACROCRYSTAL 50 MG CAPSULE (FP) PO SCH ×3 (13:08→23:44)
[2021-01-29] MEDS: traZODone HCL 50 MG TABLET (FP) PO SCH (22:22)
[2021-01-29] MEDS: THIAMINE HCL 100 MG TABLET (FP) PO SCH (22:22)
[2021-01-29] MEDS: MELATONIN 5 MG TABLETS PO SCH (22:24)
[2021-01-29 22:25] VITALS: TEMP 96.9
[2021-01-30] MEDS ORDERED: METHADONE HCL 40 MG DISPERSABLE TABLET ONE (04:19)
[2021-01-30] MEDS ORDERED: METHADONE HCL 10 MG TABLET ONE (04:19)
[2021-01-30] MEDS ORDERED: chlordiazePOXIDE HCL 10 MG CAPSULE PO ONE (05:00)
[2021-01-30] MEDS: NITROFURANTOIN MACROCRYSTAL 50 MG CAPSULE (FP) PO SCH (05:48)
[2021-01-30] MEDS: GABAPENTIN 100 MG CAPSULE PO SCH (05:48)
[2021-01-30] MEDS: METHADONE 120 MG, METHADONE 10 MG PO SCH (05:49)
[2021-01-30 09:21] VITALS: BP 110/77; PULSE 81
[2021-01-30] MEDS: valACYclovir HCL 500 MG TABLET (FP) PO SCH (09:32)
[2021-01-30] MEDS: PRENATAL VITAMINS W/ FOLIC ACID TABLET (FP) PO SCH (09:32)
[2021-01-30] MEDS: cloNIDine HCL 0.1 MG TABLET PO SCH (09:32)
[2021-01-30] MEDS: CLOTRIMAZOLE 1% CREAM 15 GM TUBE TP SCH (09:33)
[2021-01-30] MEDS: SERTRALINE HCL 50 MG TABLET (FP) PO SCH (09:33)
[2021-01-30] MEDS: AMMONIUM LACTATE 12% LOTION 225 GM BOTTLE TP PRN (09:33)
[2021-01-30] MEDS: IBUPROFEN 400 MG TABLET (FP) PO PRN (09:34)
[2021-01-30] MEDS: NICOTINE 14 MG/24 HOURS TOPICAL PATCH TD SCH (09:34)
[2021-01-30] MEDS: METHOCARBAMOL 500 MG TABLET PO PRN (09:36)
== END 2021-01-30 11:39 | disposition other institution (70) | DRG 773 ==
LOC: YASAS 14:28 → Y3N 18:46
PROVIDERS: ADMIT Allergy & Immunology; ATTEND Allergy & Immunology
PROC: HZ2ZZZZ Detoxification Services for Substance Abuse Treatment (ICD-10-PCS; principal; 2021-01-25)
DX: F10.230 Alcohol dependence with withdrawal, uncomplicated (principal); F11.20 Opioid dependence, uncomplicated; F13.20 Sedative, hypnotic or anxiolytic dependence, uncomplicated; F14.20 Cocaine dependence, uncomplicated; F17.210 Nicotine dependence, cigarettes, uncomplicated; F19.24 Other psychoactive substance dependence with psychoactive substance-induced mood disorder; G62.9 Polyneuropathy, unspecified; G47.00 Insomnia, unspecified; I10 Essential (primary) hypertension; B35.3 Tinea pedis; B00.1 Herpesviral vesicular dermatitis; R73.9 Hyperglycemia, unspecified; E66.01 Morbid (severe) obesity due to excess calories; Z68.42 Body mass index [BMI] 45.0-49.9, adult; Z91.011 Allergy to milk products; Z59.0 Homelessness; Z56.0 Unemployment, unspecified
CPT/HCPCS: 36415; 80053; 81003; 82947; 83036; 85027; 86780; 87389; 93005; 93010; C9803; J0735; U0003

== ENCOUNTER 2021-06-15 08:32 | Inpatient (IN) | payer OTHER ==
[2021-06-15 09:22] VITALS: BMI 38.2
[2021-06-15] MEDS ORDERED: ONDANSETRON *ODT* 4 MG TABLET SL PRN (10:29)
[2021-06-15] MEDS ORDERED: ACETAMINOPHEN 325 MG TABLET (FP) PO PRN (10:29)
[2021-06-15] MEDS ORDERED: NICOTINE POLACRILEX 2 MG GUM BUC PRN (10:29)
[2021-06-15] MEDS ORDERED: BISMUTH SUBSALICYLATE 524 MG/30 ML PO PRN (10:29)
[2021-06-15] MEDS ORDERED: diazePAM 5 MG TABLET PO ONE (10:29)
[2021-06-15] MEDS ORDERED: MAG HYDROX/AL HYDROX/SIMETH 30 ML UNIT-DOSE CUP PO PRN (10:29)
[2021-06-15] MEDS ORDERED: MAGNESIUM HYDROX 2400MG/30ML ORAL SUSPENSION 30 ML CUP PO PRN (10:29)
[2021-06-15] MEDS ORDERED: MAGNESIUM CITRATE 300 ML BOTTLE PO PRN (10:29)
[2021-06-15] MEDS ORDERED: COLLOIDAL OATMEAL 1 BAR EACH TP PRN (10:33)
[2021-06-15] MEDS ORDERED: ALBUTEROL SO4 HFA INHALER IH PRN (10:48)
[2021-06-15] MEDS: HYDROCHLOROTHIAZIDE 25 MG TABLET (FP) PO SCH (11:58)
[2021-06-15] MEDS: CEPHALEXIN MONOHYDRATE 500 MG CAPSULE (UD) PO SCH ×2 (11:58→17:49)
[2021-06-15] MEDS: LOSARTAN POTASSIUM 50 MG TABLET PO SCH (11:59)
[2021-06-15] MEDS: TOLNAFTATE 1% CREAM 15 GM TUBE TP SCH ×2 (11:59→22:44)
[2021-06-15] MEDS: NICOTINE 21 MG/24 HOURS TOPICAL PATCH TD SCH (12:00)
[2021-06-15] MEDS: diazePAM 5 MG TABLET PO SCH ×3 (12:03→22:43)
[2021-06-15] MEDS ORDERED: hydrOXYzine PAMOATE 25 MG CAPSULE (FP) PO SCH (14:00)
[2021-06-15] MEDS: GABAPENTIN 300 MG CAPSULE PO SCH ×2 (14:52→22:43)
[2021-06-15] MEDS: diazePAM 5 MG TABLET PO PRN (15:54)
[2021-06-15] MEDS: MENTHOL/PHENOL 1 EACH UD MM PRN (17:52)
[2021-06-15] MEDS: IBUPROFEN 400 MG TABLET (FP) PO PRN (19:08)
[2021-06-15] MEDS: ACETAMINOPHEN 325 MG TABLET (FP) PO PRN (21:26)
[2021-06-15] MEDS: THIAMINE HCL 100 MG TABLET (FP) PO SCH (22:44)
[2021-06-15] MEDS: METHOCARBAMOL 500 MG TABLET PO PRN (22:44)
[2021-06-15] MEDS: MELATONIN 5 MG TABLETS PO SCH (22:44)
[2021-06-16] MEDS: CEPHALEXIN MONOHYDRATE 500 MG CAPSULE (UD) PO SCH ×4 (00:23→17:42)
[2021-06-16] MEDS ORDERED: methaDONE HCL 10 MG TABLET ONE (04:32)
[2021-06-16] MEDS ORDERED: methaDONE HCL 40 MG DISPERSABLE TABLET ONE (04:33)
[2021-06-16] MEDS: METHOCARBAMOL 500 MG TABLET PO PRN ×2 (05:47→12:43)
[2021-06-16] MEDS: IBUPROFEN 400 MG TABLET (FP) PO PRN ×3 (05:47→22:29)
[2021-06-16] MEDS: GABAPENTIN 300 MG CAPSULE PO SCH ×3 (05:52→22:24)
[2021-06-16] MEDS: diazePAM 5 MG TABLET PO SCH ×4 (05:53→22:24)
[2021-06-16] MEDS: MENTHOL/PHENOL 1 EACH UD MM PRN ×2 (05:56→15:59)
[2021-06-16] MEDS ORDERED: methaDONE HCL 40 MG DISPERSABLE TABLET PO SCH (10:00)
[2021-06-16] MEDS: HYDROCHLOROTHIAZIDE 25 MG TABLET (FP) PO SCH (10:13)
[2021-06-16] MEDS: NICOTINE 21 MG/24 HOURS TOPICAL PATCH TD SCH (10:13)
[2021-06-16] MEDS: TOLNAFTATE 1% CREAM 15 GM TUBE TP SCH ×2 (10:13→22:28)
[2021-06-16] MEDS: LOSARTAN POTASSIUM 50 MG TABLET PO SCH (10:13)
[2021-06-16] MEDS: PRENATAL VITAMINS W/ FOLIC ACID TABLET (FP) PO SCH (10:13)
[2021-06-16] MEDS: ACETAMINOPHEN 325 MG TABLET (FP) PO PRN ×2 (10:16→18:15)
[2021-06-16] MEDS: diazePAM 5 MG TABLET PO PRN (12:43)
[2021-06-16] MEDS: THIAMINE HCL 100 MG TABLET (FP) PO SCH (22:24)
[2021-06-16] MEDS: MELATONIN 5 MG TABLETS PO SCH (22:24)
[2021-06-17] MEDS: CEPHALEXIN MONOHYDRATE 500 MG CAPSULE (UD) PO SCH ×5 (01:00→23:54)
[2021-06-17] MEDS: METHOCARBAMOL 500 MG TABLET PO PRN ×3 (01:30→22:11)
[2021-06-17] MEDS ORDERED: methaDONE HCL 10 MG TABLET ONE (04:19)
[2021-06-17] MEDS ORDERED: methaDONE HCL 40 MG DISPERSABLE TABLET ONE (04:20)
[2021-06-17] MEDS: GABAPENTIN 300 MG CAPSULE PO SCH ×3 (06:09→22:09)
[2021-06-17] MEDS: diazePAM 5 MG TABLET PO SCH ×3 (06:10→22:10)
[2021-06-17] MEDS: MENTHOL/PHENOL 1 EACH UD MM PRN (06:14)
[2021-06-17] MEDS: IBUPROFEN 400 MG TABLET (FP) PO PRN (06:29)
[2021-06-17] MEDS: BENZOCAINE 20 % GEL TUBE MM PRN ×3 (08:10→22:08)
[2021-06-17] MEDS: PRENATAL VITAMINS W/ FOLIC ACID TABLET (FP) PO SCH (10:20)
[2021-06-17 10:21] LABS: HEMATOCRIT 41.9 % (32.4-45.2); HEMOGLOBIN 14.2 GM/dL (10.7-15.3); MCH 29.2 pg (25.7-33.7); MEAN CELL VOLUME 85.8 fl (80-96); MEAN PLT VOLUME 9.1 fl (7.5-11.1); PLATELET COUNT 297 10^3/uL (134-434); RBC 4.88 M/mm3 (3.60-5.2); RDW 13.5 % (11.6-15.6); WHITE BLOOD COUNT 6.9 K/mm3 (4.0-10.0)
[2021-06-17] MEDS: HYDROCHLOROTHIAZIDE 25 MG TABLET (FP) PO SCH (10:21)
[2021-06-17] MEDS: NICOTINE 21 MG/24 HOURS TOPICAL PATCH TD SCH (10:21)
[2021-06-17] MEDS: LOSARTAN POTASSIUM 50 MG TABLET PO SCH (10:21)
[2021-06-17] MEDS: TOLNAFTATE 1% CREAM 15 GM TUBE TP SCH ×2 (10:22→22:12)
[2021-06-17] MEDS: diazePAM 5 MG TABLET PO PRN ×2 (10:23→18:01)
[2021-06-17 10:36] LABS: CALCIUM 9.1 mg/dL (8.5-10.1)
[2021-06-17 10:37] LABS: ALBUMIN 3.5 g/dl (3.4-5.0); BLOOD UREA NITROGEN 16.5 mg/dL (7-18)
[2021-06-17 10:40] LABS: CREATININE 0.8 mg/dL (0.55-1.3)
[2021-06-17 10:41] LABS: BILIRUBIN,TOTAL 0.2 mg/dL (0.2-1)
[2021-06-17 10:42] LABS: TOT PROT 7.3 g/dl (6.4-8.2)
[2021-06-17] MEDS: IBUPROFEN 600 MG TABLET (FP) PO PRN (18:00)
[2021-06-17] MEDS: hydrOXYzine PAMOATE 25 MG CAPSULE (FP) PO PRN ×2 (18:01→22:11)
[2021-06-17] MEDS: MELATONIN 5 MG TABLETS PO SCH (22:09)
[2021-06-17] MEDS: THIAMINE HCL 100 MG TABLET (FP) PO SCH (22:09)
[2021-06-18] MEDS ORDERED: methaDONE HCL 10 MG TABLET ONE (04:53)
[2021-06-18] MEDS ORDERED: methaDONE HCL 40 MG DISPERSABLE TABLET ONE (04:54)
[2021-06-18] MEDS: CEPHALEXIN MONOHYDRATE 500 MG CAPSULE (UD) PO SCH ×3 (06:15→17:09)
[2021-06-18] MEDS: GABAPENTIN 300 MG CAPSULE PO SCH ×3 (06:15→22:42)
[2021-06-18] MEDS: diazePAM 5 MG TABLET PO SCH ×2 (06:19→17:10)
[2021-06-18] MEDS: IBUPROFEN 600 MG TABLET (FP) PO PRN ×2 (06:40→22:44)
[2021-06-18] MEDS: NICOTINE 21 MG/24 HOURS TOPICAL PATCH TD SCH (10:11)
[2021-06-18] MEDS: PRENATAL VITAMINS W/ FOLIC ACID TABLET (FP) PO SCH (10:11)
[2021-06-18] MEDS: hydrOXYzine PAMOATE 25 MG CAPSULE (FP) PO PRN ×2 (10:12→22:43)
[2021-06-18] MEDS: TOLNAFTATE 1% CREAM 15 GM TUBE TP SCH ×2 (10:12→22:43)
[2021-06-18] MEDS: LOSARTAN POTASSIUM 50 MG TABLET PO SCH (10:12)
[2021-06-18] MEDS: HYDROCHLOROTHIAZIDE 25 MG TABLET (FP) PO SCH (10:12)
[2021-06-18] MEDS: BENZOCAINE 20 % GEL TUBE MM PRN ×2 (10:13→22:42)
[2021-06-18] MEDS: METHOCARBAMOL 500 MG TABLET PO PRN ×2 (10:14→17:13)
[2021-06-18] MEDS: ACETAMINOPHEN 325 MG TABLET (FP) PO PRN (12:02)
[2021-06-18] MEDS: MELATONIN 5 MG TABLETS PO SCH (22:42)
[2021-06-18] MEDS: THIAMINE HCL 100 MG TABLET (FP) PO SCH (22:42)
[2021-06-19] MEDS: CEPHALEXIN MONOHYDRATE 500 MG CAPSULE (UD) PO SCH ×2 (00:37→05:54)
[2021-06-19] MEDS ORDERED: methaDONE HCL 10 MG TABLET ONE (04:25)
[2021-06-19] MEDS ORDERED: methaDONE HCL 40 MG DISPERSABLE TABLET ONE (04:25)
[2021-06-19] MEDS: GABAPENTIN 300 MG CAPSULE PO SCH (05:54)
[2021-06-19] MEDS ORDERED: diazePAM 5 MG TABLET PO ONE (06:00)
[2021-06-19] MEDS: BENZOCAINE 20 % GEL TUBE MM PRN (06:31)
[2021-06-19 06:46] VITALS: TEMP 97.8
[2021-06-19 08:54] VITALS: BP 120/68; PULSE 76
[2021-06-19] MEDS: LOSARTAN POTASSIUM 50 MG TABLET PO SCH (09:08)
[2021-06-19] MEDS: PRENATAL VITAMINS W/ FOLIC ACID TABLET (FP) PO SCH (09:08)
[2021-06-19] MEDS: HYDROCHLOROTHIAZIDE 25 MG TABLET (FP) PO SCH (09:08)
[2021-06-19] MEDS: NICOTINE 21 MG/24 HOURS TOPICAL PATCH TD SCH (09:10)
[2021-06-19] MEDS: TOLNAFTATE 1% CREAM 15 GM TUBE TP SCH (09:10)
== END 2021-06-19 09:34 | disposition other institution (70) | DRG 773 ==
LOC: YASAS 08:32 → Y3N 10:42
PROVIDERS: ADMIT Allergy & Immunology; ATTEND Allergy & Immunology
PROC: HZ2ZZZZ Detoxification Services for Substance Abuse Treatment (ICD-10-PCS; principal; 2021-06-15)
DX: F10.230 Alcohol dependence with withdrawal, uncomplicated (principal); F11.20 Opioid dependence, uncomplicated; F13.230 Sedative, hypnotic or anxiolytic dependence with withdrawal, uncomplicated; F12.20 Cannabis dependence, uncomplicated; F19.282 Other psychoactive substance dependence with psychoactive substance-induced sleep disorder; F31.9 Bipolar disorder, unspecified; F19.24 Other psychoactive substance dependence with psychoactive substance-induced mood disorder; F17.210 Nicotine dependence, cigarettes, uncomplicated; G62.9 Polyneuropathy, unspecified; G47.00 Insomnia, unspecified; H55.00 Unspecified nystagmus; I10 Essential (primary) hypertension; J45.20 Mild intermittent asthma, uncomplicated; K08.89 Other specified disorders of teeth and supporting structures; L03.114 Cellulitis of left upper limb; L03.90 Cellulitis, unspecified; R01.1 Cardiac murmur, unspecified; N30.00 Acute cystitis without hematuria; B35.3 Tinea pedis; E66.9 Obesity, unspecified; Z68.38 Body mass index [BMI] 38.0-38.9, adult; Z91.14 Patient's other noncompliance with medication regimen; Z91.011 Allergy to milk products; Z88.8 Allergy status to other drugs, medicaments and biological substances
CPT/HCPCS: 36415; 80053; 81025; 85027; 86780; C9803; Q0162; U0003; U0005

== ENCOUNTER 2022-08-05 16:46 | Inpatient (IN) | payer OTHER ==
[2022-08-05 20:04] VITALS: BMI 37.5
[2022-08-05] MEDS ORDERED: NICOTINE POLACRILEX 2 MG GUM BUC PRN (21:38)
[2022-08-05] MEDS ORDERED: BISMUTH SUBSALICYLATE 524 MG/30 ML PO PRN (21:38)
[2022-08-05] MEDS ORDERED: NALOXONE HCL (KLOXXADO) 8 MG SPRAY NS PRN (21:38)
[2022-08-05] MEDS ORDERED: MAGNESIUM HYDROX 2400MG/30ML ORAL SUSPENSION 30 ML CUP PO PRN (21:38)
[2022-08-05] MEDS ORDERED: P-EPHED 60MG/TRIPROLIDI 2.5MG TABLET PO PRN (21:38)
[2022-08-05] MEDS ORDERED: ONDANSETRON *ODT* 4 MG TABLET SL PRN (21:38)
[2022-08-05] MEDS ORDERED: IBUPROFEN 400 MG TABLET (FP) PO PRN (21:38)
[2022-08-05] MEDS ORDERED: guaiFENesin 200 MG/10 ML 10 ML UNIT-DOSE CUPS PO PRN (21:38)
[2022-08-05] MEDS ORDERED: LOPERAMIDE HCL 2 MG CAPSULE PO PRN (21:38)
[2022-08-05] MEDS ORDERED: MAG HYDROX/AL HYDROX/SIMETH 30 ML UNIT-DOSE CUP PO PRN (21:38)
[2022-08-05] MEDS ORDERED: BENZOCAINE/MENTHOL (CHLORASEPTIC ) LOZENGE MM PRN (21:38)
[2022-08-05] MEDS ORDERED: ACETAMINOPHEN 325 MG TABLET (FP) PO PRN ×2 (21:38)
[2022-08-05] MEDS ORDERED: DICYCLOMINE HCL 10 MG CAPSULE PO PRN (21:38)
[2022-08-05] MEDS ORDERED: MAGNESIUM CITRATE 300 ML BOTTLE PO PRN (21:38)
[2022-08-05] MEDS ORDERED: NICOTINE 14 MG/24 HOURS TOPICAL PATCH TD PRN (21:38)
[2022-08-05] MEDS ORDERED: ALBUTEROL SO4 HFA INHALER IH PRN (21:40)
[2022-08-05] MEDS: MELATONIN 5 MG TABLETS PO PRN (23:02)
[2022-08-05] MEDS: GABAPENTIN 300 MG CAPSULE PO SCH (23:02)
[2022-08-05] MEDS: hydrOXYzine PAMOATE 25 MG CAPSULE (FP) PO PRN (23:02)
[2022-08-05] MEDS: THIAMINE HCL 100 MG TABLET (FP) PO SCH (23:02)
[2022-08-05] MEDS: METHOCARBAMOL 500 MG TABLET PO PRN (23:04)
[2022-08-05] MEDS: diazePAM 5 MG TABLET PO ONE (23:04)
[2022-08-05] MEDS: diazePAM 5 MG TABLET PO SCH (23:05)
[2022-08-05] MEDS: levETIRAcetam 500 MG TABLET (FP) PO SCH (23:06)
[2022-08-06] MEDS: GABAPENTIN 300 MG CAPSULE PO SCH ×3 (05:10→22:28)
[2022-08-06] MEDS: diazePAM 5 MG TABLET PO SCH ×4 (05:11→22:29)
[2022-08-06] MEDS ORDERED: methaDONE HCL 10 MG TABLET PO ONE (09:06)
[2022-08-06] MEDS: METHOCARBAMOL 500 MG TABLET PO PRN ×2 (10:30→18:24)
[2022-08-06] MEDS: levETIRAcetam 500 MG TABLET (FP) PO SCH ×2 (10:32→22:28)
[2022-08-06] MEDS: PRENATAL VITAMINS W/ FOLIC ACID TABLET (FP) PO SCH (10:32)
[2022-08-06 12:36] LABS: HEMATOCRIT 39.2 % (32.4-45.2); HEMOGLOBIN 12.8 GM/dL (10.7-15.3); MCH 27.2 pg (25.7-33.7); MCHC 32.7 g/dl (32.0-36.0); MEAN CELL VOLUME 83.1 fl (80-96); MEAN PLT VOLUME 8.6 fl (7.5-11.1); PLATELET COUNT 282 10^3/uL (134-434); RBC 4.72 M/mm3 (3.60-5.2); RDW 16.7 % (11.6-15.6); WHITE BLOOD COUNT 7.5 K/mm3 (4.0-10.0)
[2022-08-06 12:47] LABS: CALCIUM 9.2 mg/dL (8.5-10.1)
[2022-08-06 12:48] LABS: ALBUMIN 3.3 g/dl (3.4-5.0)
[2022-08-06 12:50] LABS: CREATININE 0.7 mg/dL (0.55-1.3)
[2022-08-06 12:52] LABS: BILIRUBIN,TOTAL 0.2 mg/dL (0.2-1)
[2022-08-06 13:01] LABS: TOT PROT 6.9 g/dl (6.4-8.2)
[2022-08-06] MEDS ORDERED: COLLOIDAL OATMEAL 1 BAR EACH TP PRN (13:31)
[2022-08-06] MEDS: CEPHALEXIN MONOHYDRATE 500 MG CAPSULE (UD) PO SCH ×2 (13:41→22:29)
[2022-08-06] MEDS: hydrOXYzine PAMOATE 25 MG CAPSULE (FP) PO PRN ×2 (18:23→22:28)
[2022-08-06] MEDS: NICOTINE 10 MG CARTRIDGE (INHALER) IH PRN (18:25)
[2022-08-06] MEDS: MELATONIN 5 MG TABLETS PO PRN (22:27)
[2022-08-06] MEDS: THIAMINE HCL 100 MG TABLET (FP) PO SCH (22:27)
[2022-08-07] MEDS ORDERED: methaDONE HCL 10 MG TABLET PO SCH (06:00)
[2022-08-07] MEDS: GABAPENTIN 300 MG CAPSULE PO SCH ×3 (06:05→22:28)
[2022-08-07] MEDS: diazePAM 5 MG TABLET PO SCH ×3 (06:05→22:29)
[2022-08-07] MEDS: hydrOXYzine PAMOATE 25 MG CAPSULE (FP) PO PRN ×2 (06:05→17:22)
[2022-08-07] MEDS: NICOTINE 10 MG CARTRIDGE (INHALER) IH PRN ×5 (07:15→21:08)
[2022-08-07] MEDS: CEPHALEXIN MONOHYDRATE 500 MG CAPSULE (UD) PO SCH ×2 (10:35→22:28)
[2022-08-07] MEDS: PRENATAL VITAMINS W/ FOLIC ACID TABLET (FP) PO SCH (10:35)
[2022-08-07] MEDS: levETIRAcetam 500 MG TABLET (FP) PO SCH ×2 (10:35→22:29)
[2022-08-07] MEDS: diazePAM 5 MG TABLET PO PRN ×2 (10:36→17:22)
[2022-08-07] MEDS: METHOCARBAMOL 500 MG TABLET PO PRN ×2 (10:38→17:22)
[2022-08-07] MEDS: CLOTRIMAZOLE 1% CREAM TP SCH ×2 (14:53→22:30)
[2022-08-07] MEDS: IBUPROFEN 600 MG TABLET (FP) PO PRN (18:00)
[2022-08-07] MEDS: MELATONIN 5 MG TABLETS PO PRN (22:30)
[2022-08-07] MEDS: THIAMINE HCL 100 MG TABLET (FP) PO SCH (22:31)
[2022-08-08] MEDS: diazePAM 5 MG TABLET PO SCH ×2 (05:12→17:36)
[2022-08-08] MEDS: GABAPENTIN 300 MG CAPSULE PO SCH ×3 (05:12→22:24)
[2022-08-08] MEDS: NICOTINE 10 MG CARTRIDGE (INHALER) IH PRN ×5 (05:16→22:26)
[2022-08-08] MEDS: IBUPROFEN 600 MG TABLET (FP) PO PRN ×2 (05:27→13:17)
[2022-08-08] MEDS: PRENATAL VITAMINS W/ FOLIC ACID TABLET (FP) PO SCH (10:03)
[2022-08-08] MEDS: METHOCARBAMOL 500 MG TABLET PO PRN ×2 (10:04→17:36)
[2022-08-08] MEDS: CEPHALEXIN MONOHYDRATE 500 MG CAPSULE (UD) PO SCH ×2 (10:04→22:24)
[2022-08-08] MEDS: levETIRAcetam 500 MG TABLET (FP) PO SCH ×2 (10:04→22:24)
[2022-08-08] MEDS: diazePAM 5 MG TABLET PO PRN (10:05)
[2022-08-08] MEDS: CLOTRIMAZOLE 1% CREAM TP SCH ×2 (10:08→22:35)
[2022-08-08 18:22] VITALS: RESP 18
[2022-08-08] MEDS: THIAMINE HCL 100 MG TABLET (FP) PO SCH (22:24)
[2022-08-08] MEDS: MELATONIN 5 MG TABLETS PO PRN (22:25)
[2022-08-09] MEDS: GABAPENTIN 300 MG CAPSULE PO SCH (05:41)
[2022-08-09] MEDS: diazePAM 5 MG TABLET PO ONE (05:41)
[2022-08-09] MEDS: NICOTINE 10 MG CARTRIDGE (INHALER) IH PRN ×2 (05:45→09:18)
[2022-08-09] MEDS: PRENATAL VITAMINS W/ FOLIC ACID TABLET (FP) PO SCH (09:16)
[2022-08-09] MEDS: CEPHALEXIN MONOHYDRATE 500 MG CAPSULE (UD) PO SCH (09:16)
[2022-08-09] MEDS: METHOCARBAMOL 500 MG TABLET PO PRN (09:18)
[2022-08-09 09:37] VITALS: BP 129/80; PULSE 84; TEMP 97.9
[2022-08-09] MEDS: CLOTRIMAZOLE 1% CREAM TP SCH (09:49)
[2022-08-09] MEDS: levETIRAcetam 500 MG TABLET (FP) PO SCH (09:49)
== END 2022-08-09 09:42 | disposition home or self-care (01) | DRG 773 ==
LOC: YASAS 16:46 → Y6N 22:04
PROVIDERS: ADMIT Allergy & Immunology; ATTEND Allergy & Immunology
PROC: HZ2ZZZZ Detoxification Services for Substance Abuse Treatment (ICD-10-PCS; principal; 2022-08-05)
DX: F11.23 Opioid dependence with withdrawal (principal); F10.230 Alcohol dependence with withdrawal, uncomplicated; F13.20 Sedative, hypnotic or anxiolytic dependence, uncomplicated; F14.20 Cocaine dependence, uncomplicated; F17.210 Nicotine dependence, cigarettes, uncomplicated; I10 Essential (primary) hypertension; J45.909 Unspecified asthma, uncomplicated; K21.9 Gastro-esophageal reflux disease without esophagitis; Z86.69 Personal history of other diseases of the nervous system and sense organs; Z28.310 Unvaccinated for COVID-19; Z28.9 Immunization not carried out for unspecified reason; Z88.8 Allergy status to other drugs, medicaments and biological substances; Z91.011 Allergy to milk products
CPT/HCPCS: 36415; 80053; 81025; 85027; 86780; C9803-CS; U0003; U0005

== ENCOUNTER 2023-06-03 23:32 | Inpatient (IN) | payer OTHER ==
[2023-06-04 00:02] VITALS: BMI 40.7
[2023-06-04] MEDS ORDERED: BENZONATATE 200 MG CAPSULE PO PRN (00:45)
[2023-06-04] MEDS ORDERED: BENZOCAINE/MENTHOL (CHLORASEPTIC ) LOZENGE MM PRN (00:45)
[2023-06-04] MEDS ORDERED: IBUPROFEN 600 MG TABLET (FP) PO PRN (00:45)
[2023-06-04] MEDS ORDERED: POLYETHYLENE GLYCOL (HEALTHYLAX) 3350 17 GM PACKET PO PRN (00:45)
[2023-06-04] MEDS ORDERED: ALBUTEROL SO4 HFA INHALER IH PRN (00:45)
[2023-06-04] MEDS ORDERED: MAG HYDROX/AL HYDROX/SIMETH 30 ML UNIT-DOSE CUP PO PRN (00:45)
[2023-06-04] MEDS ORDERED: BISMUTH SUBSALICYLATE 524 MG/30 ML PO PRN (00:45)
[2023-06-04] MEDS ORDERED: LOPERAMIDE HCL 2 MG CAPSULE PO PRN (00:45)
[2023-06-04] MEDS ORDERED: guaiFENesin 600 MG TABLET.ER (FP) PO PRN (00:45)
[2023-06-04] MEDS ORDERED: NALOXONE HCL (KLOXXADO) 8 MG SPRAY NS PRN (00:45)
[2023-06-04] MEDS ORDERED: MAGNESIUM HYDROX 2400MG/30ML ORAL SUSPENSION 30 ML CUP PO PRN (00:45)
[2023-06-04] MEDS ORDERED: NALOXONE HCL 0.4 MG/ML VIAL IM PRN (00:45)
[2023-06-04] MEDS ORDERED: DICYCLOMINE HCL 10 MG CAPSULE PO PRN (00:45)
[2023-06-04] MEDS ORDERED: ONDANSETRON *ODT* 4 MG TABLET SL PRN (00:45)
[2023-06-04] MEDS ORDERED: IBUPROFEN 400 MG TABLET (FP) PO PRN (00:45)
[2023-06-04] MEDS ORDERED: NICOTINE POLACRILEX 2 MG GUM BUC PRN (00:45)
[2023-06-04] MEDS ORDERED: methaDONE HCL 10 MG TABLET PO SCH (08:30)
[2023-06-04] MEDS ORDERED: NICOTINE 21 MG/24 HOURS TOPICAL PATCH ONE (09:35)
[2023-06-04] MEDS ORDERED: PRENATAL VITAMINS W/ FOLIC ACID TABLET (FP) PO ONE (09:35)
[2023-06-04] MEDS: PRENATAL VITAMINS W/ FOLIC ACID TABLET (FP) PO SCH (09:38)
[2023-06-04] MEDS: NICOTINE 21 MG/24 HOURS TOPICAL PATCH TD SCH (09:38)
[2023-06-04 10:46] LABS: HEMATOCRIT 40.6 % (32.4-45.2); HEMOGLOBIN 13.3 GM/dL (10.7-15.3); MCH 28.7 pg (25.7-33.7); MCHC 32.9 g/dl (32.0-36.0); MEAN CELL VOLUME 87.3 fl (80-96); MEAN PLT VOLUME 9.2 fl (7.5-11.1); PLATELET COUNT 266 10^3/uL (134-434); RBC 4.65 M/mm3 (3.60-5.2); RDW 14.3 % (11.6-15.6); WHITE BLOOD COUNT 6.7 K/mm3 (4.0-10.0)
[2023-06-04 11:55] LABS: POTASSIUM 4.3 mmol/L (3.5-5.1)
[2023-06-04 12:05] LABS: CALCIUM 9.2 mg/dL (8.5-10.1)
[2023-06-04] MEDS ORDERED: diazePAM 5 MG TABLET ONE (12:06)
[2023-06-04 12:07] LABS: ALBUMIN 3.2 g/dl (3.4-5.0); BLOOD UREA NITROGEN 12.2 mg/dL (7-18)
[2023-06-04] MEDS: diazePAM 5 MG TABLET PO SCH ×3 (12:08→22:31)
[2023-06-04 12:09] LABS: CREATININE 0.6 mg/dL (0.55-1.3)
[2023-06-04 12:12] LABS: TOT PROT 6.7 g/dl (6.4-8.2)
[2023-06-04 12:13] LABS: BILIRUBIN,TOTAL 0.1 mg/dL (0.2-1)
[2023-06-04] MEDS ORDERED: COLLOIDAL OATMEAL 1 BAR EACH TP PRN (20:17)
[2023-06-04] MEDS: MELATONIN 5 MG TABLETS PO SCH (22:31)
[2023-06-04] MEDS: traZODone HCL 50 MG TABLET (FP) PO SCH (22:31)
[2023-06-04] MEDS: METHOCARBAMOL 500 MG TABLET PO PRN (22:31)
[2023-06-04] MEDS: THIAMINE HCL 100 MG TABLET (FP) PO SCH (22:31)
[2023-06-05] MEDS: diazePAM 5 MG TABLET PO SCH ×4 (05:38→22:30)
[2023-06-05] MEDS: NICOTINE 21 MG/24 HOURS TOPICAL PATCH TD SCH (10:06)
[2023-06-05] MEDS: PRENATAL VITAMINS W/ FOLIC ACID TABLET (FP) PO SCH (10:06)
[2023-06-05] MEDS: METHOCARBAMOL 500 MG TABLET PO PRN ×2 (12:30→22:30)
[2023-06-05] MEDS: hydrOXYzine PAMOATE 25 MG CAPSULE (FP) PO PRN ×2 (17:04→22:29)
[2023-06-05] MEDS: diazePAM 5 MG TABLET PO PRN (19:48)
[2023-06-05] MEDS: traZODone HCL 50 MG TABLET (FP) PO SCH (22:29)
[2023-06-05] MEDS: MELATONIN 5 MG TABLETS PO SCH (22:29)
[2023-06-05] MEDS: THIAMINE HCL 100 MG TABLET (FP) PO SCH (22:29)
[2023-06-06] MEDS: ACETAMINOPHEN 325 MG TABLET (FP) PO PRN (05:13)
[2023-06-06] MEDS: diazePAM 5 MG TABLET PO SCH ×3 (05:13→22:39)
[2023-06-06] MEDS: hydrOXYzine PAMOATE 25 MG CAPSULE (FP) PO PRN ×2 (10:45→22:39)
[2023-06-06] MEDS: PRENATAL VITAMINS W/ FOLIC ACID TABLET (FP) PO SCH (10:45)
[2023-06-06] MEDS: METHOCARBAMOL 500 MG TABLET PO PRN ×2 (10:45→17:02)
[2023-06-06] MEDS: NICOTINE 21 MG/24 HOURS TOPICAL PATCH TD SCH (10:46)
[2023-06-06] MEDS: diazePAM 5 MG TABLET PO PRN ×2 (10:46→17:01)
[2023-06-06 12:06] LABS: CALCIUM 8.8 mg/dL (8.5-10.1)
[2023-06-06] MEDS: MELATONIN 5 MG TABLETS PO SCH (22:39)
[2023-06-06] MEDS: THIAMINE HCL 100 MG TABLET (FP) PO SCH (22:39)
[2023-06-06] MEDS: traZODone HCL 50 MG TABLET (FP) PO SCH (22:39)
[2023-06-07] MEDS: diazePAM 5 MG TABLET PO SCH ×2 (05:35→17:38)
[2023-06-07] MEDS: ACETAMINOPHEN 325 MG TABLET (FP) PO PRN (05:35)
[2023-06-07] MEDS: PRENATAL VITAMINS W/ FOLIC ACID TABLET (FP) PO SCH (10:24)
[2023-06-07] MEDS: METHOCARBAMOL 500 MG TABLET PO PRN ×2 (10:24→22:22)
[2023-06-07] MEDS: hydrOXYzine PAMOATE 25 MG CAPSULE (FP) PO PRN ×2 (10:24→22:23)
[2023-06-07] MEDS: NICOTINE 21 MG/24 HOURS TOPICAL PATCH TD SCH (10:25)
[2023-06-07] MEDS: CLOTRIMAZOLE 1% CREAM TP SCH (22:22)
[2023-06-07] MEDS: THIAMINE HCL 100 MG TABLET (FP) PO SCH (22:22)
[2023-06-07] MEDS: traZODone HCL 50 MG TABLET (FP) PO SCH (22:22)
[2023-06-07] MEDS: MELATONIN 5 MG TABLETS PO SCH (22:22)
[2023-06-08] MEDS ORDERED: diazePAM 5 MG TABLET PO ONE (06:00)
[2023-06-08 06:34] VITALS: RESP 18
[2023-06-08 09:46] VITALS: BP 121/75; PULSE 75; TEMP 97.7
[2023-06-08] MEDS: PRENATAL VITAMINS W/ FOLIC ACID TABLET (FP) PO SCH (10:06)
[2023-06-08] MEDS: CLOTRIMAZOLE 1% CREAM TP SCH (10:06)
[2023-06-08] MEDS: NICOTINE 21 MG/24 HOURS TOPICAL PATCH TD SCH (10:07)
[2023-06-08] MEDS: METHOCARBAMOL 500 MG TABLET PO PRN (10:07)
== END 2023-06-08 10:45 | disposition home or self-care (01) | DRG 773 ==
LOC: YASAS 23:32 → Y6N 06-04 09:33
PROVIDERS: ADMIT Allergy & Immunology; ATTEND Surgery
DX: F10.230 Alcohol dependence with withdrawal, uncomplicated (principal); F13.230 Sedative, hypnotic or anxiolytic dependence with withdrawal, uncomplicated; F11.20 Opioid dependence, uncomplicated; F17.210 Nicotine dependence, cigarettes, uncomplicated; F33.1 Major depressive disorder, recurrent, moderate; F32.A Depression, unspecified; J45.20 Mild intermittent asthma, uncomplicated; B35.3 Tinea pedis; B18.2 Chronic viral hepatitis C; G62.9 Polyneuropathy, unspecified; E66.01 Morbid (severe) obesity due to excess calories; Z68.41 Body mass index [BMI] 40.0-44.9, adult; Z28.310 Unvaccinated for COVID-19; Z28.9 Immunization not carried out for unspecified reason; Z88.8 Allergy status to other drugs, medicaments and biological substances; Z91.011 Allergy to milk products
CPT/HCPCS: 36415; 80053; 81025; 82040; 82247; 82310; 85027; 86780; 87635; 87811; G0480

== ENCOUNTER 2024-03-21 20:51 | Inpatient (IN) | payer OTHER ==
[2024-03-21 20:44] VITALS: BMI 30.9
[2024-03-21] MEDS ORDERED: BENZOCAINE/MENTHOL (CHLORASEPTIC ) LOZENGE MM PRN (22:23)
[2024-03-21] MEDS ORDERED: guaiFENesin 600 MG TABLET.ER (FP) PO PRN (22:23)
[2024-03-21] MEDS ORDERED: LOPERAMIDE HCL 2 MG CAPSULE PO PRN (22:23)
[2024-03-21] MEDS ORDERED: NALOXONE HCL (KLOXXADO) 8 MG SPRAY NS PRN (22:23)
[2024-03-21] MEDS ORDERED: ONDANSETRON *ODT* 4 MG TABLET SL PRN (22:23)
[2024-03-21] MEDS ORDERED: POLYETHYLENE GLYCOL (HEALTHYLAX) 3350 17 GM PACKET PO PRN (22:23)
[2024-03-21] MEDS ORDERED: MAGNESIUM HYDROX 2400MG/30ML ORAL SUSPENSION 30 ML CUP PO PRN (22:23)
[2024-03-21] MEDS ORDERED: MAG HYDROX/AL HYDROX/SIMETH 30 ML UNIT-DOSE CUP PO PRN (22:23)
[2024-03-21] MEDS ORDERED: NALOXONE HCL 0.4 MG/ML VIAL IM PRN (22:23)
[2024-03-21] MEDS ORDERED: BENZONATATE 200 MG CAPSULE PO PRN (22:23)
[2024-03-21] MEDS ORDERED: BISMUTH SUBSALICYLATE 524 MG/30 ML PO PRN (22:23)
[2024-03-21] MEDS ORDERED: IBUPROFEN 400 MG TABLET (FP) PO PRN (22:23)
[2024-03-22] MEDS: hydrOXYzine PAMOATE 25 MG CAPSULE (FP) PO PRN (06:33)
[2024-03-22] MEDS: METHOCARBAMOL 500 MG TABLET PO PRN (06:33)
[2024-03-22] MEDS: cloNIDine HCL 0.1 MG TABLET PO ONE (06:33)
[2024-03-22] MEDS ORDERED: ALBUTEROL SO4 HFA INHALER IH PRN (09:15)
[2024-03-22] MEDS ORDERED: diazePAM 5 MG TABLET PO PRN (09:49)
[2024-03-22] MEDS: PRENATAL VITAMINS W/ FOLIC ACID TABLET (FP) PO SCH (10:12)
[2024-03-22] MEDS: diazePAM 5 MG TABLET PO SCH (10:12)
[2024-03-22] MEDS: NICOTINE 21 MG/24 HOURS TOPICAL PATCH TD SCH (10:12)
[2024-03-22] MEDS: methaDONE HCL 10 MG TABLET (FOR DETOX USE ONLY) PO ONE (10:12)
[2024-03-22 16:18] LABS: HEMATOCRIT 41.4 % (32.4-45.2); HEMOGLOBIN 13.7 GM/dL (10.7-15.3); MCH 27.8 pg (25.7-33.7); MEAN CELL VOLUME 84.2 fl (80-96); PLATELET COUNT 294 10^3/uL (134-434); RBC 4.92 M/mm3 (3.60-5.2); RDW 14.4 % (11.6-15.6); WHITE BLOOD COUNT 9.6 K/mm3 (4.0-10.0)
[2024-03-22 16:26] LABS: CHLORIDE 109 mmol/L (98-107); POTASSIUM 4.4 mmol/L (3.5-5.1); SODIUM 136 mmol/L (136-145)
[2024-03-22 16:28] LABS: ALBUMIN 3.2 g/dl (3.4-5.0); BLOOD UREA NITROGEN 12.4 mg/dL (7-18)
[2024-03-22 16:29] LABS: CALCIUM 9.1 mg/dL (8.5-10.1)
[2024-03-22 16:30] LABS: ANION GAP 3 mmol/L (4-13); CO2 23 mmol/L (21-32); GLUCOSE,RANDOM 86 mg/dL (74-106)
[2024-03-22 16:32] LABS: CREATININE 0.5 mg/dL (0.55-1.3)
[2024-03-22 16:33] LABS: BILIRUBIN,TOTAL 0.3 mg/dL (0.2-1); SGOT/AST 13 U/L (15-37); SGPT/ALT 16 U/L (13-61); TOT PROT 6.2 g/dl (6.4-8.2)
[2024-03-22 16:34] LABS: ALK PHOS 59 U/L (45-117)
[2024-03-22 17:24] LABS: HIV INTERPRETATION NEGATIVE (NEGATIVE)
[2024-03-22] MEDS: traZODone HCL 50 MG TABLET (FP) PO SCH (22:14)
[2024-03-22] MEDS: THIAMINE 100 MG TABLET PO SCH (22:14)
[2024-03-22] MEDS: MELATONIN 5 MG TABLETS PO SCH (22:14)
[2024-03-23] MEDS: ACETAMINOPHEN 325 MG TABLET (FP) PO PRN (12:02)
[2024-03-23] MEDS: GABAPENTIN 300 MG CAPSULE PO SCH (14:45)
[2024-03-23] MEDS: cloNIDine HCL 0.1 MG TABLET PO PRN (17:04)
[2024-03-24] MEDS: diazePAM 5 MG TABLET PO SCH (05:46)
[2024-03-24] MEDS: methaDONE HCL 10 MG TABLET (FOR DETOX USE ONLY) PO ONE (09:49)
[2024-03-24] MEDS: IBUPROFEN 600 MG TABLET (FP) PO PRN (22:17)
[2024-03-25] MEDS: diazePAM 5 MG TABLET PO SCH (05:29)
[2024-03-25] MEDS: DICYCLOMINE HCL 10 MG CAPSULE PO PRN (17:29)
[2024-03-25] MEDS: NICOTINE POLACRILEX 2 MG GUM BUC PRN (20:38)
[2024-03-25] MEDS: hydrOXYzine PAMOATE 25 MG CAPSULE (FP) PO ONE (21:15)
[2024-03-26] MEDS: diazePAM 5 MG TABLET PO ONE (05:51)
[2024-03-26] MEDS: methaDONE HCL 10 MG TABLET (FOR DETOX USE ONLY) PO ONE (09:08)
[2024-03-26] MEDS: cloNIDine HCL 0.1 MG TABLET PO PRN (12:27)
[2024-03-27 06:26] VITALS: RESP 16
[2024-03-27 09:15] VITALS: BP 151/84; PULSE 83; TEMP 97.6
== END 2024-03-27 09:04 | disposition home or self-care (01) | DRG 773 ==
LOC: YASAS 20:51 → Y3N 22:48
PROVIDERS: ADMIT Allergy & Immunology; ATTEND Surgery
PROC: HZ2ZZZZ Detoxification Services for Substance Abuse Treatment (ICD-10-PCS; principal; 2024-03-21)
DX: F11.23 Opioid dependence with withdrawal (principal); F10.230 Alcohol dependence with withdrawal, uncomplicated; F17.210 Nicotine dependence, cigarettes, uncomplicated; F19.24 Other psychoactive substance dependence with psychoactive substance-induced mood disorder; F41.9 Anxiety disorder, unspecified; F43.10 Post-traumatic stress disorder, unspecified; D50.9 Iron deficiency anemia, unspecified; G62.1 Alcoholic polyneuropathy; I10 Essential (primary) hypertension; J45.20 Mild intermittent asthma, uncomplicated; K21.9 Gastro-esophageal reflux disease without esophagitis; Z28.310 Unvaccinated for COVID-19; Z28.9 Immunization not carried out for unspecified reason; Z56.0 Unemployment, unspecified; Z59.00 Homelessness unspecified; Z88.8 Allergy status to other drugs, medicaments and biological substances
CPT/HCPCS: 36415; 80053; 80305; 80307; 81025; 85027; 86780; 87389; 93005; 93010

== ENCOUNTER 2024-05-14 13:39 | Inpatient (IN) | payer OTHER ==
[2024-05-14 14:12] VITALS: BMI 30.8
[2024-05-14] MEDS ORDERED: ALBUTEROL SO4 HFA INHALER IH PRN (14:47)
[2024-05-14] MEDS ORDERED: BENZONATATE 200 MG CAPSULE PO PRN (14:52)
[2024-05-14] MEDS ORDERED: NALOXONE HCL 0.4 MG/ML VIAL IM PRN (14:52)
[2024-05-14] MEDS ORDERED: ONDANSETRON *ODT* 4 MG TABLET SL PRN (14:52)
[2024-05-14] MEDS ORDERED: P-EPHED 60MG/TRIPROLIDI 2.5MG TABLET PO PRN (14:52)
[2024-05-14] MEDS ORDERED: MAGNESIUM HYDROX 2400MG/30ML ORAL SUSPENSION 30 ML CUP PO PRN (14:52)
[2024-05-14] MEDS ORDERED: MAG HYDROX/AL HYDROX/SIMETH 30 ML UNIT-DOSE CUP PO PRN (14:52)
[2024-05-14] MEDS ORDERED: IBUPROFEN 400 MG TABLET (FP) PO PRN (14:52)
[2024-05-14] MEDS ORDERED: LOPERAMIDE HCL 2 MG CAPSULE PO PRN (14:52)
[2024-05-14] MEDS ORDERED: BENZOCAINE/MENTHOL (CHLORASEPTIC ) LOZENGE MM PRN (14:52)
[2024-05-14] MEDS ORDERED: ACETAMINOPHEN 325 MG TABLET (FP) PO PRN (14:52)
[2024-05-14] MEDS ORDERED: NICOTINE POLACRILEX 2 MG LOZENGE BC PRN (14:52)
[2024-05-14] MEDS ORDERED: NALOXONE (NARCAN) HCL 4 MG/0.1 ML SPRAY NS PRN (14:52)
[2024-05-14] MEDS ORDERED: guaiFENesin 600 MG TABLET.ER (FP) PO PRN (14:52)
[2024-05-14] MEDS ORDERED: POLYETHYLENE GLYCOL (HEALTHYLAX) 3350 17 GM PACKET PO PRN (14:52)
[2024-05-14] MEDS ORDERED: BISMUTH SUBSALICYLATE 524 MG/30 ML PO PRN (14:52)
[2024-05-14] MEDS: levETIRAcetam 500 MG TABLET (FP) PO SCH (15:58)
[2024-05-14] MEDS: IBUPROFEN 600 MG TABLET (FP) PO PRN (15:58)
[2024-05-14] MEDS: THIAMINE 100 MG TABLET PO SCH (22:13)
[2024-05-14] MEDS: MELATONIN 5 MG TABLETS PO SCH (22:13)
[2024-05-14] MEDS: METHOCARBAMOL 500 MG TABLET PO PRN (22:14)
[2024-05-14] MEDS: diazePAM 5 MG TABLET PO SCH (22:14)
[2024-05-15] MEDS: methaDONE 40 MG, methaDONE 20 MG PO SCH (10:03)
[2024-05-15] MEDS: PRENATAL VITAMINS W/ FOLIC ACID TABLET (FP) PO SCH (10:03)
[2024-05-15] MEDS: methaDONE HCL 40 MG DISPERSABLE TABLET PO SCH (10:09)
[2024-05-15] MEDS: diazePAM 5 MG TABLET PO PRN (21:24)
[2024-05-16] MEDS: diazePAM 5 MG TABLET PO SCH (05:31)
[2024-05-16] MEDS: NICOTINE POLACRILEX 2 MG GUM BUC PRN (10:33)
[2024-05-16] MEDS: LOSARTAN POTASSIUM 25 MG TABLET PO ONE (11:43)
[2024-05-16] MEDS: GABAPENTIN 300 MG CAPSULE PO SCH (13:54)
[2024-05-16] MEDS: NICOTINE 14 MG/24 HOURS TOPICAL PATCH TD SCH (15:05)
[2024-05-16 17:14] LABS: HEMATOCRIT 40.9 % (32.4-45.2); HEMOGLOBIN 13.7 GM/dL (10.7-15.3); MCHC 33.4 g/dl (32.0-36.0); MEAN PLT VOLUME 8.3 fl (7.5-11.1); PLATELET COUNT 351 10^3/uL (134-434); RBC 4.87 M/mm3 (3.60-5.2); RDW 15.3 % (11.6-15.6); WHITE BLOOD COUNT 10.3 K/mm3 (4.0-10.0)
[2024-05-16 17:17] LABS: CHLORIDE 104 mmol/L (98-107); POTASSIUM 4.5 mmol/L (3.5-5.1); SODIUM 137 mmol/L (136-145)
[2024-05-16 17:23] LABS: ANION GAP 5 mmol/L (4-13); BLOOD UREA NITROGEN 14.3 mg/dL (7-18); CALCIUM 9.5 mg/dL (8.5-10.1); CO2 28 mmol/L (21-32); GLUCOSE,RANDOM 80 mg/dL (74-106)
[2024-05-16 17:24] LABS: ALBUMIN 3.8 g/dl (3.4-5.0)
[2024-05-16 17:26] LABS: CREATININE 0.7 mg/dL (0.55-1.3)
[2024-05-16 17:27] LABS: SGOT/AST 13 U/L (15-37); SGPT/ALT 18 U/L (13-61)
[2024-05-16 17:28] LABS: BILIRUBIN,TOTAL 0.3 mg/dL (0.2-1); TOT PROT 7.5 g/dl (6.4-8.2)
[2024-05-16 17:29] LABS: ALK PHOS 69 U/L (45-117)
[2024-05-16 18:12] LABS: HIV INTERPRETATION NEGATIVE (NEGATIVE)
[2024-05-16] MEDS: DICYCLOMINE HCL 10 MG CAPSULE PO PRN (21:40)
[2024-05-17] MEDS: diazePAM 5 MG TABLET PO SCH (05:38)
[2024-05-17] MEDS: LOSARTAN POTASSIUM 25 MG TABLET PO SCH (09:21)
[2024-05-17] MEDS: cloNIDine HCL 0.1 MG TABLET PO PRN (20:55)
[2024-05-18] MEDS: diazePAM 5 MG TABLET PO ONE (05:35)
[2024-05-18 10:05] VITALS: BP 137/92; PULSE 77; RESP 16; TEMP 97.9
== END 2024-05-18 09:31 | disposition home or self-care (01) | DRG 773 ==
LOC: YASAS 13:39 → Y3N 15:26
PROVIDERS: ADMIT Allergy & Immunology; ATTEND Surgery
PROC: HZ2ZZZZ Detoxification Services for Substance Abuse Treatment (ICD-10-PCS; principal; 2024-05-14)
DX: F10.230 Alcohol dependence with withdrawal, uncomplicated (principal); F11.20 Opioid dependence, uncomplicated; F14.20 Cocaine dependence, uncomplicated; F17.210 Nicotine dependence, cigarettes, uncomplicated; G62.9 Polyneuropathy, unspecified; I10 Essential (primary) hypertension; K21.9 Gastro-esophageal reflux disease without esophagitis; J45.909 Unspecified asthma, uncomplicated; Z86.19 Personal history of other infectious and parasitic diseases; Z62.810 Personal history of physical and sexual abuse in childhood; Z63.8 Other specified problems related to primary support group; Z88.8 Allergy status to other drugs, medicaments and biological substances
CPT/HCPCS: 36415; 80053; 80305; 81025; 84702; 85027; 86780; 87389